=== PATIENT | female | born 1940 | race Caucasian/White ===

== ENCOUNTER 2016-10-12 10:24 | Emergency (ER) | payer OTHER ==
[~2016-10-12] VITALS: Ht 162.6 cm; Wt 64.6 kg
[~2016-10-12 10:24] MED LIST: CALCCAP4 PO; CARV6.252 PO; CHOL200027 PO; CLOP1TAB15 PO; FOLI1TAB7 PO; LORA0.5T12 PO; METH2.5T PO; PANT40TA PO; PRED-301 PO; SIMV20TA5 PO; TRAM-10 PO
[2016-10-12 10:36] VITALS: TEMP 36.5; Ht 162.6 cm; Wt 64.6 kg
[2016-10-12] MEDS ORDERED: SODIUM CHLORIDE 0.9% 1000ML 1,000 ML IV STA (10:36)
--- NOTE | 2016-10-12 10:39 | EMERGENCY ROOM VISIT NOTE ---
History Report prepared by Duncan: Pablo Martinez Under the Supervision of: Dr. Juve Browning M.D. First contact with patient: 10:28 Stated Complaint: SYNCOPE History of Present Illness The patient is a 76 year old female who presents to the Emergency Room with complaints of a resolved episode of syncope that occurred earlier today. The patient was sitting down at [employer]ae[employer] when she lost consciousness. The patient has passed out before but it has been many years. She did eat breakfast this morning. The patient has a history of coronary artery disease for which she has had CABG and stents placed. She follows up with Cardiology in [place]. The patient also has a history of breast cancer. She is currently in remission s/p mastectomy. The patient does not wear oxygen at home. The patient denies abdominal pain. Source of History: patient Onset: earlier today Position: other (global) Quality: other (syncope) Timing: resolved Associated Symptoms: + LOC, No abdominal pain Review of Systems See HPI for pertinent positives & negatives. A total of 10 systems reviewed and were otherwise negative. 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 (10) mitral valve repair (11) OLD MYOCARDIAL INFARCT (12) Paroxysmal atrial fibrillation (13) Placement of stent in coronary artery (14) Rheumatoid arthritis (15) Sciatica (16) TIA (transient ischemic attack) Surgical Problems: (1) H/O oophorectomy (2) H/O shoulder surgery (3) S/P mastectomy Family History Cancer Heart disease Hypertension Social History Smoking Status: Never Smoker Alcohol Use: none Drug Use: none Marital Status: single Housing Status: lives alone Occupation Status: retired Current/Historical Medications Scheduled Carvedilol (Coreg), 6.25 MG PO BID Cholecalciferol (Vitamin D-3), 2,000 INTER.UNIT PO QAM Clopidogrel (Plavix), 75 MG PO DAILY Folic Acid (Folvite), 1 MG PO DAILY Methotrexate (Methotrexate), 4 TAB PO WK Pantoprazole Sodium (Protonix), 40 MG PO DAILY Prednisone (Prednisone), 5 MG PO DAILY Simvastatin (Zocor), 20 MG PO HS Allergies Coded Allergies: Lorazepam (Unverified Adverse Reaction, Severe, DELIRIUM, 10/12/16) Confusion, Disoriented, Hallucination Promethazine (Unverified Adverse Reaction, Severe, DELIRIUM, 10/12/16) Pt confused, hallucinating, disoriented Physical Exam Vital Signs Date Time Temp Pulse Resp B/P Pulse Ox O2 Delivery O2 Flow Rate FiO2 10/12/16 13:48 85 21 137/91 96 10/12/16 13:09 78 10/12/16 12:22 79 20 146/94 96 Room Air 10/12/16 11:02 98 Room Air 10/12/16 10:56 77 153/84 81 124/73 82 128/69 10/12/16 10:36 36.5 86 20 147/90 99 Room Air 10/12/16 10:34 78 Physical Exam GENERAL: Patient is a healthy-appearing well-nourished female HEAD: Normocephalic atraumatic EYES: Ocular movements intact pupils equal and react to light OROPHARYNX mucous membranes are moist no exudates present no erythema or edema present NECK: Supple no nuchal rigidity CHEST: Good equal expansion LUNGS: Clear and equal to auscultation CARDIAC: Normal S1 and S2 ABDOMEN: Soft nontender no guarding BACK: No CVA tenderness EXTREMITIES: No pain upon palpation normal muscle strength in all groups no clubbing cyanosis or edema NEURO: Patient is following commands is answering questions appropriately. Alert and oriented x3 Cranial Nerves 2-12 grossly intact Medical Decision & Procedures ER Provider Diagnostic Interpretation: X-ray results as stated below per my interpretation and radiologist interpretation. Other radiology results as stated below per my review and radiologist interpretation: CHEST ONE VIEW PORTABLE CLINICAL HISTORY: Syncope COMPARISON STUDY: 7016 FINDINGS: There are postsurgical changes of a midline sternotomy and valvular replacement. The cardiac and mediastinal contours remain stable. There is no failure. There is no focal pulmonary consolidation. There are no significant pleural effusions. There is a linear atelectasis/scarring at the left lung base. There are postsurgical changes of a right humeral arthroplasty. Degenerative changes are present within the left shoulder.[ IMPRESSION: No active disease in the chest. Electronically signed by: Yusef Teran M.D. 10/12/2016 10:53 AM Dictated Date/Time: 10/12/2016 10:[address] NON[address]AST CT DOSE: 537.48 mGy.cm HISTORY: Altered mental status. Syncope. TECHNIQUE: Multiaxial CT images of the head were performed without the use of intravenous contrast. Automated exposure control was utilized for this study. Comparison: Head CT 01/26/2015. Findings: The paranasal sinuses and mastoid air cells are clear. The calvarium and skull base are intact. There is no mass, hematoma, midline shift, acute infarct. White matter hypodensity is nonspecific but suggestive of microvascular ischemic change. The ventricles and sulci demonstrate mild age-related involutional changes. Punctate old lacunar infarct seen within the left thalamus. Impression: No significant change compared to the prior study. No acute intracranial abnormality. Electronically signed by: Alex Desouza M.D. 10/12/2016 12:43 PM Dictated Date/Time: 10/12/2016 12:11 PM Laboratory Results 10/12/16 11:30 Red Blood Count 3.70, Mean Corpuscular Volume 91.4, Mean Corpuscular Hemoglobin 29.2, Mean Corpuscular Hemoglobin Concent 32.0, Mean Platelet Volume 9.7, Neutrophils (%) (Auto) 77.1, Lymphocytes (%) (Auto) 13.0, Monocytes (%) (Auto) 7.8, Eosinophils (%) (Auto) 1.3, Basophils (%) (Auto) 0.7, Neutrophils # (Auto) 5.32, Lymphocytes # (Auto) 0.90, Monocytes # (Auto) 0.54, Eosinophils # (Auto) 0.09, Basophils # (Auto) 0.05 10/12/16 11:30 Test 10/12/16 11:06 10/12/16 11:09 10/12/16 11:30 10/12/16 12:27 Influenza Type A (RT-PCR) Neg for Influ A (NEG) Influenza Type B (RT-PCR) Neg for Influ B (NEG) Bedside Glucose 108 mg/dl (70-90) White Blood Count 6.91 K/uL (4.8-10.8) Red Blood Count 3.70 M/uL (4.2-5.4) Hemoglobin 10.8 g/dL (12.0-16.0) Hematocrit 33.8 % (37-47) Mean Corpuscular Volume 91.4 fL (80-100) Mean Corpuscular Hemoglobin 29.2 pg (25-34) Mean Corpuscular Hemoglobin Concent 32.0 g/dl (32-36) Platelet Count 227 K/uL (130-400) Mean Platelet Volume 9.7 fL (7.4-10.4) Neutrophils (%) (Auto) 77.1 % Lymphocytes (%) (Auto) 13.0 % Monocytes (%) (Auto) 7.8 % Eosinophils (%) (Auto) 1.3 % Basophils (%) (Auto) 0.7 % Neutrophils # (Auto) 5.32 K/uL (1.4-6.5) Lymphocytes # (Auto) 0.90 K/uL (1.2-3.4) Monocytes # (Auto) 0.54 K/uL (0.11-0.59) Eosinophils # (Auto) 0.09 K/uL (0-0.5) Basophils # (Auto) 0.05 K/uL (0-0.2) RDW Standard Deviation 55.1 fL (36.4-46.3) RDW Coefficient of Variation 16.5 % (11.5-14.5) Immature Granulocyte % (Auto) 0.1 % Immature Granulocyte # (Auto) 0.01 K/uL (0.00-0.02) Prothrombin Time 10.5 SECONDS (9.0-12.0) Prothromb Time International Ratio 1.0 (0.9-1.1) Anion Gap 11.0 mmol/L (3-11) Est Creatinine Clear Calc Drug Dose 37.6 ml/min Estimated GFR () 56.5 Estimated GFR (Non- 48.7 BUN/Creatinine Ratio 27.5 (10-20) Calcium Level 8.9 mg/dl (8.5-10.1) Total Bilirubin 0.5 mg/dl (0.2-1) Direct Bilirubin 0.1 mg/dl (0-0.2) Aspartate Amino Transf (AST/SGOT) 31 U/L (15-37) Alanine Aminotransferase (ALT/SGPT) 38 U/L (12-78) Alkaline Phosphatase 34 U/L (45-117) Total Creatine Kinase 105 U/L (26-192) Creatine Kinase MB 1.1 ng/ml (0.5-3.6) Creatine Kinase MB Ratio 1.0 (0-3.0) Troponin I < 0.015 ng/ml (0-0.045) Total Protein 6.7 gm/dl (6.4-8.2) Albumin 3.5 gm/dl (3.4-5.0) Thyroid Stimulating Hormone (TSH) 3.210 uIu/ml (0.300-4.500) Urine Color YELLOW Urine Appearance CLEAR (CLEAR) Urine pH 6.5 (4.5-7.5) Urine Specific [place] 1.004 (1.000-1.030) Urine Protein NEG (NEG) Urine Glucose (UA) NEG (NEG) Urine Ketones NEG (NEG) Urine Occult Blood NEG (NEG) Urine Nitrite NEG (NEG) Urine Bilirubin NEG (NEG) Urine Urobilinogen NEG (NEG) Urine Leukocyte Esterase NEG (NEG) Labs reviewed by ED physician. Medications Administered Medications (Trade) Dose Ordered Sig/Tony Route Start Time Stop Time Status Last Admin Dose Admin Sodium Chloride (Nss 1000ml) 1,000 ml @ 999 mls/hr Q1H1M STAT IV 10/12/16 10:36 10/12/16 11:36 DC 10/12/16 11:35 999 MLS/HR ECG Indication: syncope Rate (beats per minute): 79 Rhythm: normal sinus Findings: no acute ischemic change, no ectopy, other (normal ekg) ED Course 1030: Past medical records reviewed. The patient was evaluated in room C10. A complete history and physical examination was performed. 1036: NSS 1000 ml @ 999 mls/hr. 1125: Spoke with the patient's daughter. She states that the patient has passed out multiple times, which is usually due to dehydration. She also states that the patient is at baseline. She had me check the patient's ears, which were clear. 1330: Reassessed the patient. Discussed the findings with her. She verbalized understanding and agreement of the treatment plan. The patient is ready for discharge. Medical Decision Etiologies such as vasovagal event, infection, hypoglycemia, electrolyte abnormalities, cardiac sources, intracerebral event, toxicologic, neurologic, as well as others were entertained. This is a 76-year-old female who presents emergency department after passing out. The patient now had a warning that she was going to pass out. Patient and her daughter both states that she has had syncopal episodes in the past however the patient is also had cardiac bypass surgery. For this reason an IV was established EKG was obtained, the patient given normal saline bolus. She is slightly dehydrated on her laboratory work. I do believe that the patient as well as to be discharged home however stressed the need for follow-up with cardiology. Patient was in agreement with the treatment plan. Impression Primary Impression: Dehydration Additional Impression: Syncope Scribe Attestation The scribe's documentation has been prepared under my direction and personally reviewed by me in its entirety. I confirm that the note above accurately reflects all work, treatment, procedures, and medical decision making performed by me. Departure Information Dispostion Home / Self-Care Referrals Damion Carballo M.D. (PCP) Forms HOME CARE DOCUMENTATION FORM, IMPORTANT VISIT INFORMATION, School Instructions, Work Instructions Patient Instructions Dehydration, My [facility], Syncope Causes, Syncope Dx Additional Instructions Follow up with Dr Nieves's office You have been examined and treated today on an emergency basis only. This is not a substitute for, or an effort to provide, complete comprehensive medical care. It is impossible to recognize and treat all injuries or illnesses in a single emergency department visit. It is therefore important that you follow up closely with Dr Carballo. Call as soon as possible for an appointment. Thank you for your time and consideration. I look forward to speaking with you again soon. Please don't hesitate to call us if you have any questions. Problem Qualifiers Additional Impression: Syncope Syncope type: unspecified Qualified Codes: R55 - Syncope and collapse
--- NOTE | 2016-10-12 10:54 | DIAGNOSTIC IMAGING REPORT ---
CHEST ONE VIEW PORTABLE CLINICAL HISTORY: Syncope COMPARISON STUDY: 7016 FINDINGS: There are postsurgical changes of a midline sternotomy and valvular replacement. The cardiac and mediastinal contours remain stable. There is no failure. There is no focal pulmonary consolidation. There are no significant pleural effusions. There is a linear atelectasis/scarring at the left lung base. There are postsurgical changes of a right humeral arthroplasty. Degenerative changes are present within the left shoulder.[ IMPRESSION: No active disease in the chest. Electronically signed by: Yusef Teran M.D. 10/12/2016 10:53 AM Dictated Date/Time: 10/12/2016 10:52 AM
[2016-10-12 11:02] VITALS: O2SAT 98
[2016-10-12 11:45] LABS: BASO % 0.7 %; BASO ABS # 0.05 K/uL (0-0.2); COMPLETE YES; EOS % 1.3 %; HEMATOCRIT 33.8 % (37-47); IG% 0.1 %; MEAN CELL VOLUME 91.4 fL (80-100); MEAN CORPUSCULAR HEMOGLOBIN 29.2 pg (25-34); MEAN PLATELET VOLUME 9.7 fL (7.4-10.4); MONO % 7.8 %; NEUT % 77.1 %; PLATELET COUNT 227 K/uL (130-400); WHITE BLOOD COUNT 6.91 K/uL (4.8-10.8)
[2016-10-12 12:00] LABS: PROTHROMBIN TIME (PATIENT) 10.5 SECONDS (9.0-12.0)
[2016-10-12 12:03] LABS: ALT/SGPT 38 U/L (12-78); BLOOD UREA NITROGEN 30 mg/dl (7-18); BUN/CREATININE RATIO 27.5 (10-20); CALCIUM 8.9 mg/dl (8.5-10.1); CARBON DIOXIDE 22 mmol/L (21-32); CHLORIDE 108 mmol/L (98-107); GLUCOSE 98 mg/dl (70-99); POTASSIUM 4.3 mmol/L (3.5-5.1); SODIUM 141 mmol/L (136-145)
[2016-10-12 12:13] LABS: AST/SGOT 31 U/L (15-37)
[2016-10-12 12:14] LABS: ALKALINE PHOSPHATASE 34 U/L (45-117)
[2016-10-12 12:44] LABS: URINE APPEARANCE CLEAR (CLEAR); URINE BILIRUBIN NEG (NEG); URINE COLOR YELLOW; URINE NITRITE NEG (NEG); URINE PH 6.5 (4.5-7.5); URINE SPECIFIC GRAVITY 1.004 (1.000-1.030); UROBILINOGEN NEG (NEG)
--- NOTE | 2016-10-12 12:45 | DIAGNOSTIC IMAGING REPORT ---
HEAD CT NONCONTRAST CT DOSE: 537.48 mGy.cm HISTORY: Altered mental status. Syncope. TECHNIQUE: Multiaxial CT images of the head were performed without the use of intravenous contrast. Automated exposure control was utilized for this study. Comparison: Head CT 01/26/2015. Findings: The paranasal sinuses and mastoid air cells are clear. The calvarium and skull base are intact. There is no mass, hematoma, midline shift, acute infarct. White matter hypodensity is nonspecific but suggestive of microvascular ischemic change. The ventricles and sulci demonstrate mild age-related involutional changes. Punctate old lacunar infarct seen within the left thalamus. Impression: No significant change compared to the prior study. No acute intracranial abnormality. Electronically signed by: Alex Desouza M.D. 10/12/2016 12:43 PM Dictated Date/Time: 10/12/2016 12:11 PM
[2016-10-12 12:50] LABS: MANUAL MICROSCOPIC REQUIRED? NO; REVIEW REQ? NO
[2016-10-12 13:48] VITALS: BP 137/91; PULSE 85; O2SAT 96
[2016-10-12 13:56] LABS: INFLUENZA A PCR Neg for Influ A (NEG); INFLUENZA B PCR Neg for Influ B (NEG)
== END 2016-10-12 13:50 | disposition home or self-care (01) ==
LOC: EDBD 10:24 → C.EDC 10:26
DX: E86.0 Dehydration (principal); R55 Syncope and collapse; I25.10 Atherosclerotic heart disease of native coronary artery without angina pectoris; Z95.1 Presence of aortocoronary bypass graft; Z95.5 Presence of coronary angioplasty implant and graft; Z85.3 Personal history of malignant neoplasm of breast; Z79.01 Long term (current) use of anticoagulants; I10 Essential (primary) hypertension; E78.00 Pure hypercholesterolemia, unspecified; I25.2 Old myocardial infarction; M06.9 Rheumatoid arthritis, unspecified; Z86.73 Personal history of transient ischemic attack (TIA), and cerebral infarction without residual deficits; Z90.13 Acquired absence of bilateral breasts and nipples; Z82.49 Family history of ischemic heart disease and other diseases of the circulatory system; Z79.899 Other long term (current) drug therapy

== ENCOUNTER 2017-04-07 14:13 | Emergency (ER) | payer OTHER ==
[~2017-04-07] VITALS: Ht 152.4 cm; Wt 62.4 kg
[~2017-04-07 14:13] MED LIST changes: -CALCCAP4 PO; -LORA0.5T12 PO; -TRAM-10 PO
[2017-04-07 14:25] VITALS: TEMP 36.7; Ht 152.4 cm; Wt 62.4 kg
[2017-04-07 14:30] VITALS: O2SAT 95
--- NOTE | 2017-04-07 14:34 | EMERGENCY ROOM VISIT NOTE ---
History Report prepared by Duncan: Joey Lipscomb Under the Supervision of: Dr. July Harding D.O. 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 The patient reports shopping in a greenhouse today when this episode occurred. It lasted about 1 minute. Associated symptoms include prior dizziness. Per the patient's daughter , the check out cashier at the greenhouse noticed signs of the patient passing out. These signs include the patient becoming pale and starting to lose her balance. The check out cashier was able to catch her. The patient did not hit her head. The patient notes that she has been experiencing worsening left shoulder pain this past week. States she has had left shoulder pain intermittently for years thought to be related to arthritis and was just recently exacerbated. She believes that this pain was caused by a minor "whiplash" after sneezing. The patient has a history of syncopal episodes secondary to dehydration. She admits to not drinking enough water today. States she did eat breakfast this morning. The patient denies chest pain, shortness of breath, headaches, nausea, vomiting, and diarrhea. The patient has an extensive cardiac history that includes an open heart valve repair, a "failed" bypass, and stent placement. She had a clear heart catheterization last year. The patient denies experiencing any symptoms at this time. Daughter present at bedside talk to the check out cashier about the event who again confirms that there was no trauma, they did not notice any seizure-like activity in the patient, and that she was only unconscious for less than a minute and when came to was aware of her surroundings and oriented. 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 A total of 10 systems reviewed and were otherwise negative. 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, detention, current use (10) mitral valve repair (11) OLD MYOCARDIAL INFARCT (12) Paroxysmal atrial fibrillation (13) Placement of stent in coronary artery (14) Rheumatoid arthritis (15) Sciatica (16) TIA (transient ischemic attack) Surgical Problems: (1) H/O oophorectomy (2) H/O shoulder surgery (3) S/P mastectomy Family History Cancer Heart disease Hypertension Social History Smoking Status: Never Smoker Alcohol Use: none Drug Use: none Marital Status: single Housing Status: lives alone Occupation Status: retired Current/Historical Medications Scheduled Aspirin (Aspirin Ec), 81 MG PO DAILY Carvedilol (Coreg), 3.125 MG PO BID Cephalexin (Keflex), 1 CAP PO BID Cholecalciferol (Vitamin D-3), 2,000 INTER.UNIT PO QAM Clopidogrel (Plavix), 75 MG PO DAILY Folic Acid (Folvite), 1 MG PO DAILY Methotrexate (Methotrexate), 4 TAB PO WK Pantoprazole Sodium (Protonix), 40 MG PO DAILY Simvastatin (Zocor), 20 MG PO HS Allergies Coded Allergies: Lorazepam (Unverified Adverse Reaction, Severe, DELIRIUM, 10/12/16) Confusion, Disoriented, Hallucination Promethazine (Unverified Adverse Reaction, Severe, DELIRIUM, 10/12/16) Pt confused, hallucinating, disoriented Physical Exam Vital Signs Date Time Temp Pulse Resp B/P (MAP) Pulse Ox O2 Delivery O2 Flow Rate FiO2 04/07/17 19:10 72 16 137/72 96 Room Air 04/07/17 17:12 84 16 148/82 96 Room Air 04/07/17 15:05 79 18 123/71 96 Room Air 78 117/76 80 114/69 04/07/17 14:30 95 Room Air 04/07/17 14:25 36.7 78 20 134/76 95 Room Air 04/07/17 14:24 76 Physical Exam GENERAL: alert, well appearing, well nourished, no distress, non-toxic EYE EXAM: normal conjunctiva, PERRL and EOM's grossly intact OROPHARYNX: no exudate, no erythema, lips, buccal mucosa, and tongue normal and mucous membranes are moist NECK: supple, no nuchal rigidity, no adenopathy, non-tender LUNGS: Clear to auscultation. Normal chest wall mechanics HEART: no murmurs, S1 normal and S2 normal ABDOMEN: abdomen soft, non-tender, normo-active bowel sounds, no masses, no rebound or guarding. BACK: Back is symmetrical on inspection and there is no deformity, no midline tenderness, no CVA tenderness. SKIN: Small abrasion to left axilla, no rashes. UPPER EXTREMITIES: No reproducible pain of left shoulder. upper extremities are grossly normal. LOWER EXTREMITIES: No pitting edema. NEURO EXAM: No facial droop. Normal sensorium, cranial nerves II-XII intact, normal speech, no weakness of arms, no weakness of legs. No drift. Finger to nose intact. Gross sensation intact. Medical Decision & Procedures ER Provider Diagnostic Interpretation: Radiology results have been interpreted by the radiologist and reviewed by me. HEAD WITHOUT CONTRAST (CT) CT DOSE: 614.27 mGy.cm HISTORY: Mental status change syncope TECHNIQUE: Multiaxial CT images of the head were performed without the use of intravenous contrast. A dose lowering technique was utilized adhering to the principles of ALARA. Comparison: 10/12/2016 Findings: The paranasal sinuses and mastoid air cells are clear. The calvarium and skull base are intact. The ventricles and sulci are within normal limits. There is no mass, hematoma, midline shift, or acute infarct. Chronic small vessel change of aging. Mild frontal atrophy. Impression: Age-related change. No acute intracranial abnormality . Chronic small vessel change. The above report was generated using voice recognition software. It may contain grammatical, syntax or spelling errors. Electronically signed by: Oscar Kilgore M.D. 04/07/2017 3:29 PM Dictated Date/Time: 04/07/2017 3:26 PM CHEST ONE VIEW PORTABLE CLINICAL HISTORY: syncope mental status change COMPARISON STUDY: 10/12/2016 FINDINGS: Prior median sternotomy and valve replacement. Diaphragms are smooth. Lungs are clear. Prior right shoulder arthroplasty. IMPRESSION: Chronic and postoperative change. No acute process. The above report was generated using voice recognition software. It may contain grammatical, syntax or spelling errors. Electronically signed by: Oscar Kilgore M.D. 04/07/2017 3:10 PM Dictated Date/Time: 04/07/2017 3:09 PM Laboratory Results 04/07/17 15:37 Red Blood Count 3.90, Mean Corpuscular Volume 86.7, Mean Corpuscular Hemoglobin 26.7, Mean Corpuscular Hemoglobin Concent 30.8, Mean Platelet Volume 9.0, Neutrophils (%) (Auto) 79.6, Lymphocytes (%) (Auto) 11.2, Monocytes (%) (Auto) 8.0, Eosinophils (%) (Auto) 0.3, Basophils (%) (Auto) 0.6, Neutrophils # (Auto) 7.18, Lymphocytes # (Auto) 1.01, Monocytes # (Auto) 0.72, Eosinophils # (Auto) 0.03, Basophils # (Auto) 0.05 04/07/17 18:42 Test 04/07/17 15:37 04/07/17 16:38 04/07/17 18:42 White Blood Count 9.02 K/uL (4.8-10.8) Red Blood Count 3.90 M/uL (4.2-5.4) Hemoglobin 10.4 g/dL (12.0-16.0) Hematocrit 33.8 % (37-47) Mean Corpuscular Volume 86.7 fL (80-100) Mean Corpuscular Hemoglobin 26.7 pg (25-34) Mean Corpuscular Hemoglobin Concent 30.8 g/dl (32-36) Platelet Count 288 K/uL (130-400) Mean Platelet Volume 9.0 fL (7.4-10.4) Neutrophils (%) (Auto) 79.6 % Lymphocytes (%) (Auto) 11.2 % Monocytes (%) (Auto) 8.0 % Eosinophils (%) (Auto) 0.3 % Basophils (%) (Auto) 0.6 % Neutrophils # (Auto) 7.18 K/uL (1.4-6.5) Lymphocytes # (Auto) 1.01 K/uL (1.2-3.4) Monocytes # (Auto) 0.72 K/uL (0.11-0.59) Eosinophils # (Auto) 0.03 K/uL (0-0.5) Basophils # (Auto) 0.05 K/uL (0-0.2) RDW Standard Deviation 55.1 fL (36.4-46.3) RDW Coefficient of Variation 17.6 % (11.5-14.5) Immature Granulocyte % (Auto) 0.3 % Immature Granulocyte # (Auto) 0.03 K/uL (0.00-0.02) Prothrombin Time 10.2 SECONDS (9.0-12.0) Prothromb Time International Ratio 1.0 (0.9-1.1) Total Bilirubin 0.5 mg/dl (0.2-1) Aspartate Amino Transf (AST/SGOT) 21 U/L (15-37) Alanine Aminotransferase (ALT/SGPT) 21 U/L (12-78) Alkaline Phosphatase 52 U/L (45-117) Pro-B-Type Natriuretic Peptide 1050 pg/ml (0-1800) Total Protein 7.4 gm/dl (6.4-8.2) Albumin 3.4 gm/dl (3.4-5.0) Globulin 4.0 gm/dl (2.5-4.0) Albumin/Globulin Ratio 0.9 (0.9-2) Urine Color YELLOW Urine Appearance CLEAR (CLEAR) Urine pH 6.5 (4.5-7.5) Urine Specific [place] 1.012 (1.000-1.030) Urine Protein 1+ (NEG) Urine Glucose (UA) TRACE (NEG) Urine Ketones NEG (NEG) Urine Occult Blood 1+ (NEG) Urine Nitrite NEG (NEG) Urine Bilirubin NEG (NEG) Urine Urobilinogen NEG (NEG) Urine Leukocyte Esterase TRACE (NEG) Urine WBC (Auto) 5-10 /hpf (0-5) Urine RBC (Auto) 0-4 /hpf (0-4) Urine Hyaline Casts (Auto) 1-5 /lpf (0-5) Urine Epithelial Cells (Auto) >30 /lpf (0-5) Urine Bacteria (Auto) 3+ (NEG) Urine Renal Epithelial Cells 5-10 /lpf (0-5) Anion Gap 6.0 mmol/L (3-11) Est Creatinine Clear Calc Drug Dose 24.3 ml/min Estimated GFR () 35.7 Estimated GFR (Non- 30.8 BUN/Creatinine Ratio 17.3 (10-20) Calcium Level 8.6 mg/dl (8.5-10.1) Troponin I < 0.015 ng/ml (0-0.045) Laboratory results per my review. Medications Administered Medications (Trade) Dose Ordered Sig/Tony Route Start Time Stop Time Status Last Admin Dose Admin Sodium Chloride 1,000 ml @ 999 mls/hr Q1H1M STAT IV 04/07/17 14:46 04/07/17 15:46 DC 04/07/17 14:46 999 MLS/HR Sodium Chloride 1,000 ml @ 999 mls/hr Q1H1M STAT IV 04/07/17 17:24 04/07/17 18:24 DC 04/07/17 17:24 999 MLS/HR Cephalexin Monohydrate (Keflex Cap) 500 mg NOW ONCE PO 04/07/17 19:30 04/07/17 19:31 DC 04/07/17 19:30 500 MG ECG Indication: syncope Rate (beats per minute): 78 Rhythm: sinus rhythm Findings: 1st degree AV block, no acute ischemic change, left axis deviation, other (Normal Intervals) ED Course 1421: The patient was evaluated in room A12. A complete history and physical exam was performed. \\ 1446: Ordered Sodium Chloride 1,000 ml @ 999 mls/hr IV. 1505: Patient's daughter spoke with Johana espinosa who states that the patient was out for approximately 30 seconds. No seizure activity was observed. 1544: Upon reevaluation, the patient is feeling well. 1610: Cath report from May 13, 2016 at [place] shows patent graphs and stents RCA with 30-40% stenosis mid and distal. 1724: Ordered Sodium Chloride 1,000 ml @ 999 mls/hr IV. 1736: Upon reevaluation, the patient is feeling fine. We will recheck troponin in an hour. 1930: Ordered Keflex Capsule 500 mg PO. 193: The patient was able to ambulate to bathroom with steady gate. No recurrent episodes. I discussed the findings and the treatment plan with the patient. She verbalizes agreement and understanding. She was discharged home. Medical Decision Differential diagnosis: Etiologies such as vasovagal event, infection, hypoglycemia, electrolyte abnormalities, cardiac sources, intracerebral event, toxicologic, neurologic, as well as others were entertained. Patient monitored her for several hours as a precaution given age and comorbidities. Reviewed cath results from less than 1 year ago which showed patent grafts and stents. Given patient's poor oral intake, and being in an extreme setting of heat, more likely related to these 2 factors. Doubt acute neurologic or cardiac event. Patient with normal nonfocal neuro exam at bedside and negative CAT scan of the head. Labs and EKG reassuring, troponins negative 2. Doubt acute vascular etiology. Patient with mild contusion noted to the left upper extremity likely from check out cashier trying to prevent her from falling, no other evidence of acute traumatic injury. Discussed with patient creatinine as well as likely mild urinary tract infection. Discussed close follow up with family doctor, adequate hydration, use of antibiotics. Doubt bacteremia/sepsis. Patient with no symptoms to suggest a sending UTI or pyelonephritis. Urine sent for culture as a precaution. Cranium was improved following IV hydration, discussed recheck of this with family doctor. Patient with mild anemia, discussed with family. No recent black or bloody stools, doubt occult GI bleed, or blood loss secondary to trauma. Patient and daughter aware of all results, aware for need for close follow-up, we discussed symptoms to watch and return for, they verbalized understanding were agreeable with plan. Medication Reconcilliation Current Medication List: was personally reviewed by me Blood Pressure Screening Patient's blood pressure: Elevated blood pressure Blood pressure disposition: Elevated BP felt to be situational Impression Primary Impression: Syncope Additional Impressions: Contusion Acute renal insufficiency UTI (urinary tract infection) Scribe Attestation The scribe's documentation has been prepared under my direction and personally reviewed by me in its entirety. I confirm that the note above accurately reflects all work, treatment, procedures, and medical decision making performed by me. Departure Information Dispostion Home / Self-Care Prescriptions Cephalexin (KEFLEX) 500 Mg Cap 1 CAP PO BID for 7 Days, #14 CAP Prov: July Harding, DO 04/07/17 Referrals Damion Carballo M.D. (PCP) Forms HOME CARE DOCUMENTATION FORM, IMPORTANT VISIT INFORMATION Additional Instructions Please follow up with your family doctor the beginning of next week. Please make sure you're drinking more water. Please take the antibiotic as prescribed. Please have your family doctor recheck your kidney number as it was slightly abnormal tonight at 1.6. Please continue your other normal medications. If you develop any recurrent episodes of dizziness or lightheadedness, develop chest pain, trouble breathing, headaches, vision changes, numbness or tingling, vomiting, abdominal pain, or you have any other new or concerning symptoms, please return the emergency room. Problem Qualifiers Primary Impression: Syncope Syncope type: unspecified Qualified Codes: R55 - Syncope and collapse Additional Impressions: Contusion Encounter type: initial encounter Contusion area: upper arm Laterality: left Qualified Codes: S40.022A - Contusion of left upper arm, initial encounter UTI (urinary tract infection) Urinary tract infection type: acute cystitis Hematuria presence: with hematuria Qualified Codes: N30.01 - Acute cystitis with hematuria
[2017-04-07] MEDS ORDERED: ASPI81TA28 PO (14:45)
[2017-04-07] MEDS ORDERED: SODIUM CHLORIDE 0.9% 1000ML 1,000 ML IV STA ×2 (14:46→17:24)
--- NOTE | 2017-04-07 15:11 | DIAGNOSTIC IMAGING REPORT ---
CHEST ONE VIEW PORTABLE CLINICAL HISTORY: syncope mental status change COMPARISON STUDY: 10/12/2016 FINDINGS: Prior median sternotomy and valve replacement. Diaphragms are smooth. Lungs are clear. Prior right shoulder arthroplasty. IMPRESSION: Chronic and postoperative change. No acute process. The above report was generated using voice recognition software. It may contain grammatical, syntax or spelling errors. Electronically signed by: Oscar Kilgore M.D. 04/07/2017 3:10 PM Dictated Date/Time: 04/07/2017 3:09 PM
--- NOTE | 2017-04-07 15:31 | DIAGNOSTIC IMAGING REPORT ---
HEAD WITHOUT CONTRAST (CT) CT DOSE: 614.27 mGy.cm HISTORY: Mental status change syncope TECHNIQUE: Multiaxial CT images of the head were performed without the use of intravenous contrast. A dose lowering technique was utilized adhering to the principles of ALARA. Comparison: 10/12/2016 Findings: The paranasal sinuses and mastoid air cells are clear. The calvarium and skull base are intact. The ventricles and sulci are within normal limits. There is no mass, hematoma, midline shift, or acute infarct. Chronic small vessel change of aging. Mild frontal atrophy. Impression: Age-related change. No acute intracranial abnormality . Chronic small vessel change. The above report was generated using voice recognition software. It may contain grammatical, syntax or spelling errors. Electronically signed by: Oscar Kilgore M.D. 04/07/2017 3:29 PM Dictated Date/Time: 04/07/2017 3:26 PM
[2017-04-07 15:50] LABS: HEMATOCRIT 33.8 % (37-47); MEAN CELL VOLUME 86.7 fL (80-100); MEAN CORPUSCULAR HEMOGLOBIN 26.7 pg (25-34); MEAN CORPUSCULAR HGB CONC 30.8 g/dl (32-36); PLATELET COUNT 288 K/uL (130-400); WHITE BLOOD COUNT 9.02 K/uL (4.8-10.8)
[2017-04-07 15:58] LABS: PROTHROMBIN TIME (PATIENT) 10.2 SECONDS (9.0-12.0)
[2017-04-07 16:13] LABS: ALT/SGPT 21 U/L (12-78); AST/SGOT 21 U/L (15-37); BLOOD UREA NITROGEN 30 mg/dl (7-18); BUN/CREATININE RATIO 16.7 (10-20); CALCIUM 9.2 mg/dl (8.5-10.1); CARBON DIOXIDE 21 mmol/L (21-32); CHLORIDE 113 mmol/L (98-107); GLUCOSE 101 mg/dl (70-99); POTASSIUM 4.1 mmol/L (3.5-5.1); SODIUM 140 mmol/L (136-145)
[2017-04-07 16:18] LABS: ALB/GLOB RATIO 0.9 (0.9-2); ALKALINE PHOSPHATASE 52 U/L (45-117)
[2017-04-07 16:40] LABS: BASO % 0.6 %; BASO ABS # 0.05 K/uL (0-0.2); COMPLETE YES; EOS % 0.3 %; IG% 0.3 %; LYMPH % 11.2 %; LYMPH ABS # 1.01 K/uL (1.2-3.4); NEUT % 79.6 %
[2017-04-07 18:55] LABS: URINE APPEARANCE CLEAR (CLEAR); URINE BILIRUBIN NEG (NEG); URINE COLOR YELLOW; URINE EPITHELIAL CELL AUTO >30 /lpf (0-5); URINE NITRITE NEG (NEG); URINE PH 6.5 (4.5-7.5); URINE SPECIFIC GRAVITY 1.012 (1.000-1.030); UROBILINOGEN NEG (NEG); ZZUR CULT IF INDIC CLEAN CATCH YES
[2017-04-07 19:01] LABS: MANUAL MICROSCOPIC REQUIRED? NO; REVIEW REQ? YES
[2017-04-07 19:10] VITALS: BP 137/72; PULSE 72; O2SAT 96
[2017-04-07 19:24] LABS: BLOOD UREA NITROGEN 28 mg/dl (7-18); BUN/CREATININE RATIO 17.3 (10-20); CALCIUM 8.6 mg/dl (8.5-10.1); CARBON DIOXIDE 21 mmol/L (21-32); CHLORIDE 114 mmol/L (98-107); GLUCOSE 121 mg/dl (70-99); POTASSIUM 4.2 mmol/L (3.5-5.1); SODIUM 141 mmol/L (136-145)
[2017-04-07] MEDS ORDERED: CEPHALEXIN MONOHYDRATE 250 MG CAP PO ONE (19:30)
[2017-04-07] MEDS ORDERED: CEPH-571 PO (19:41)
[2017-04-10 14:34] LABS: HYPERSEGMENTED POLYS 1+
== END 2017-04-07 19:56 | disposition home or self-care (01) ==
LOC: EDBD 14:13 → C.EDA 14:14
DX: R55 Syncope and collapse (principal); T14.8 Other injury of unspecified body region; X58.XXXA Exposure to other specified factors, initial encounter; N28.9 Disorder of kidney and ureter, unspecified; N39.0 Urinary tract infection, site not specified; D64.9 Anemia, unspecified; I44.0 Atrioventricular block, first degree; E78.00 Pure hypercholesterolemia, unspecified; I48.91 Unspecified atrial fibrillation; I25.2 Old myocardial infarction; I10 Essential (primary) hypertension; I25.10 Atherosclerotic heart disease of native coronary artery without angina pectoris; I34.1 Nonrheumatic mitral (valve) prolapse; M06.9 Rheumatoid arthritis, unspecified; Z85.3 Personal history of malignant neoplasm of breast; Z90.10 Acquired absence of unspecified breast and nipple; Z86.73 Personal history of transient ischemic attack (TIA), and cerebral infarction without residual deficits; Z98.61 Coronary angioplasty status; Z98.890 Other specified postprocedural states; Z79.01 Long term (current) use of anticoagulants; Z79.82 Long term (current) use of aspirin; Z79.899 Other long term (current) drug therapy; Z88.8 Allergy status to other drugs, medicaments and biological substances; Z80.9 Family history of malignant neoplasm, unspecified; Z82.49 Family history of ischemic heart disease and other diseases of the circulatory system

== ENCOUNTER → 2017-06-01 | Outpatient (CLI) | payer OTHER ==
[~2017-06-01] MED LIST changes: +ASPI81TA28 PO; -PRED-301 PO
--- NOTE | 2017-06-01 16:20 | MAMMOGRAPHY REPORT ---
BILATERAL DIGITAL SCREENING MAMMOGRAM TOMOSYNTHESIS WITH CAD: 06/01/2017 CLINICAL HISTORY: Asymptomatic. Personal history of breast cancer. TECHNIQUE: Breast tomosynthesis in addition to standard 2D mammography was performed. Current study was also evaluated with a Computer Aided Detection (CAD) system. COMPARISON: Comparison is made to exams dated: 12/31/2015 mammogram, 11/07/2014 mammogram, 07/31/2013 mammogram, 01/24/2013 mammogram, 07/26/2012 ultrasound, and 07/26/2012 mammogram - [facility]. BREAST COMPOSITION: There are scattered areas of fibroglandular density in both breasts. FINDINGS: No suspicious masses, calcifications, or areas of architectural distortion are noted in ei ther breast. There has been no significant interval change compared to prior exams. The patient is s tatus post right mastectomy with implant reconstruction. The implant is not well visualized on the i mages. There are stable nodular densities within the right upper outer quadrant consistent with extr avasated silicone from previous implant rupture. IMPRESSION: ACR BI-RADS CATEGORY 2: BENIGN There is no mammographic evidence of malignancy. A 1 year screening mammogram is recommended. The pa tient will receive written notification of the results. Approximately 10% of breast cancers are not detected with mammography. A negative mammographic report should not delay biopsy if a clinically suggestive mass is present. Adeline Virk M.D. /:06/01/2017 14:02:30 Specimen Collector: Joleen Cota, [facility] letter sent: Normal 1/2 BI-RADS Code: ACR BI-RADS Category 2: Benign
== END | disposition home or self-care (01) ==
LOC: C.MAMM 12:33
PROVIDERS: ATTEND Family Medicine
DX: Z12.31 Encounter for screening mammogram for malignant neoplasm of breast (principal); Z85.3 Personal history of malignant neoplasm of breast; Z98.82 Breast implant status; Z90.11 Acquired absence of right breast and nipple

== ENCOUNTER 2019-02-19 17:44 | Inpatient (IN) ==
--- OUTSIDE RECORDS SUMMARY | 2019-02-19 17:47 | External Medical Summary | Continuity of Care Document ---
:1940 Author Name Curtis Morin Address Unavailable Unavailable , Care Team Providers Name Role Phone Unavailable Unavailable Unavailable Temo Morin Unavailable [email or web address] II, C Unavailable Unavailable Unavailable Unavailable Unavailable Problems Osteoarthritis Of The Ankle/Foot (Multiple Joints) (715.97) Closed Compression Fracture Of Thoracic Vertebral Body At T7-T12 Level With Spinal Cord Injury (806.25) Cough (786.2) (R05) Esophagitis (530.10) (K20.9) Osteoporosis (733.00) (M81.0) Ankle joint pain (719.47) (M25.579) Postmenopausal atrophic vaginitis (627.3) (N95.2) Tenosynovitis of hand or wrist (727.05) (M65.88) High risk medication use (V58.69) (Z79.899) Rheumatoid arthritis (714.0) (M06.9) Incontinence (788.30) (R32) Dysuria (788.1) (R30.0) Sprain of ribs (848.3) (S23.41XA) Hyperlipidemia (272.4) (E78.5) Piriformis syndrome (355.0) (G57.00) Compression fracture of lumbar vertebra (805.4) (S32.000A) Disc degeneration, lumbar (722.52) (M51.36) Mitral and aortic valve 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 Patience Plascencia Start: 27-Apr-2011 Quantity: 180 Refills: 1 Pantoprazole Sodium 40 MG Oral Tablet De layed Release; TAKE ONE TABLET BY MOUTH EVERY DAY Patience Plascencia Start: 27-Apr-2011 Quantity: 90 Refills: 3 predniSONE 1 MG Oral Tablet; TAKE FOUR TABLETS BY MOUTH EVER Y DAY Patience Plascencia Start: 27-Apr-2011 Quantity: 120 Refills: 0 Plavix 75 MG Oral Tablet; TAKE 1 TABLET DAILY. Patience Plascencia Start: 06-Oct-2014 Refills: 0 Coreg 6.25 MG Oral Tablet; TAKE 1 TABLET TWICE DAILY WITH ME ALS. Patience Refills: 0 Zocor 80 MG Oral Tablet; TAKE 1 TABLET DAILY. Patience Refills: 0 Calcium + D 600-200 MG-UNIT TABS; TAKE 1 TABLET TWICE DAILY. Patience Start: 27-Apr-2011 Refills: 0 Vitamin D3 2000 UNIT Oral Tablet; TAKE 1 TABLET DAILY. Ghulam Start: 27-Apr-2011 Refills: 0 predniSONE 5 MG Oral Tablet; 4 tablets p o daily; call Dr. Plascencia's office next week for instructions on taper Patience Plascencia Start: 06-Oct-2014 Quantity: 120 Refills: 1 Zoledronic Acid 5 MG/100ML Intravenous S olution; INFUSE 5MG INTRAVENOUSLY OVER 15 MINUTES DIRECTED. Patience Plascencia Start: 13-Dec-2013 Quantity: 1 100 ML Bottle Refills: 0 Folic Acid 1 MG Oral Tablet; TAKE 1 TABLET DAILY. Patience Plascencia Start: 29-Oct-2013 Quantity: 90 Refills: 1 Methotrexate 2.5 MG Oral Tablet; TAKE 3 TABLETS WEEKLY. Patience Plascencia Start: 29-Oct-2013 Quantity: 48 Refills: 1 Procedures History of Bronchoscopy (Diagnostic) Sta tus: Completed History of Tonsillectomy Status: Complet ed History of Cath Stent Placement Status: Completed History of Shoulder Arthroplasty Total Shoulder Replacement Status: Completed History of Ovarian Surgery Status: Compl eted History of Breast Surgery Mastectomy Sta tus: Completed History of Treatment Of Elbow Fracture S tatus: Completed Immunizations Immunizations not documented Family History Father Family history of Congestive Heart Failure Status: Active Mother Family history of Heart Disease (V17.49) Status: Active Family history of Alzheimer Disease Status: Active Sister Family history of Hypertension (V17.49) Status: Active Family history of Hypertension (V17.49) Status: Active Brother Family history of Coronary Artery Disease (V17.49) Status: A ctive Social History - Smoking Status Never smoker Plan of Treatment Planned Observations Planned Goals not documented Results No Known Results Results not documented
[2019-02-19] MEDS ORDERED: ONDANSETRON INJ 2 MG/ML 2 ML VIAL IV STA (18:22)
[2019-02-19] MEDS: SODIUM CHLORIDE 0.9% 1000ML 1,000 ML IV SCH (19:56)
[2019-02-19 20:07] LABS: Alanine Aminotransferase 58 U/L (12-78); Albumin Level 2.9 gm/dl (3.4-5.0); Aspartate Aminotransferase 87 U/L (15-37); BUN Creatinine Ratio 28.5 (10-20); Blood Urea Nitrogen 29 mg/dl (7-18); Calcium 8.5 mg/dl (8.5-10.1); Carbon Dioxide 22 mmol/L (21-32); Chloride 102 mmol/L (98-107); Est GFR (African American) 59.9; Est GFR (Non-African American) 51.7; Glucose 90 mg/dl (70-99); Magnesium 2.2 mg/dl (1.8-2.4); Potassium 4.2 mmol/L (3.5-5.1); Sodium 133 mmol/L (136-145)
[2019-02-19 20:18] LABS: Albumin Globulin Ratio 0.7 (0.9-2); Alkaline Phosphatase 88 U/L (45-117); Bilirubin,Total 0.8 mg/dl (0.2-1); Globulin 4.2 gm/dl (2.5-4.0); NT Pro B Type Natriuretic Pept 4380 pg/ml (0-1800); Total Protein 7.1 gm/dl (6.4-8.2); Troponin I < 0.015 ng/ml (0-0.045)
--- NOTE | 2019-02-19 20:40 | XRay Report ---
PA CHEST RADIOGRAPH AND UPRIGHT AND SUPINE AP RADIOGRAPHS OF THE ABDOMEN CLINICAL HISTORY: Nausea, vomiting and diarrhea COMPARISON STUDY: Chest radiograph April 07, 2017. FINDINGS: Prosthetic cardiac valve, median sternotomy wires and right shoulder arthroplasty are inci dentally noted. There is a trace left pleural effusion. There is no evidence for pulmonary edema. No consolidation is identified. Mild cardiomegaly is noted. There is no evidence for free air. There may be a hiatal hernia. Bowel gas pattern is within normal limits. There is extensive vascular calcifica tion. IMPRESSION: 1. No free air or evidence of bowel obstruction. 2. Suspected moderate-sized hiatal hernia. 3. Trace left pleural effusion. Electronically signed by: Cody Estrada M.D. 02/19/2019 8:38 PM
[2019-02-19 20:53] LABS: Hematocrit (blood only) 40.9 % (37-47); Hemoglobin 13.5 g/dL (12.0-16.0); Mean Corpuscular Volume 87.4 fL (80-100); Mean Platelet Volume 10.6 fL (7.4-10.4); Platelet Count 88 K/uL (130-400); RDW Standard Deviation 57.4 fL (36.4-46.3); Red Blood Count 4.68 M/uL (4.2-5.4); White Blood Count 4.25 K/uL (4.8-10.8)
[2019-02-19 20:56] LABS: Basophils # (auto) 0.01 K/uL (0-0.2); Basophils % (auto) 0.2 %; Echinocytes 1+; Immature Granulocytes # (auto) 0.08 K/uL (0.00-0.02); Immature Granulocytes % (auto) 1.9 %; Lymphocytes # (auto) 0.35 K/uL (1.2-3.4); Lymphocytes % (auto) 8.2 %; Monocytes # (auto) 0.04 K/uL (0.11-0.59); Monocytes % (auto) 0.9 %; Neutrophils # (auto) 3.77 K/uL (1.4-6.5); Neutrophils % (auto) 88.8 %; Platelet Estimate Decreased (Normal)
[2019-02-19 21:22] LABS: Giant Platelets 1+
[2019-02-19] MEDS ORDERED: IOVERSOL 100ml IV PRN (21:29)
[2019-02-19] MEDS ORDERED: DOXYCYCLINE HYCLATE 100 MG CAP PO STA (21:35)
[2019-02-19] MEDS ORDERED: FAMOTIDINE 20MG/5ML IV PUSH IV STA (21:35)
--- NOTE | 2019-02-19 22:08 | CT Scan Report ---
CT OF THE HEAD WITHOUT CONTRAST CLINICAL HISTORY: Fatigue. Confusion. COMPARISON STUDY: Head CT April 07, 2017. CT DOSE: 537.48 mGy.cm TECHNIQUE: Helical axial images of the head were obtained without IV contrast. Automated exposure con trol was utilized for the study. A dose lowering technique was utilized adhering to the principles o f ALARA. FINDINGS: No acute intracranial hemorrhage, midline shift or mass effect is present. Ventricular syst em is normal. The basilar cisterns are patent. There are no extra axial collections. White matter hyp odensities suggest small vessel disease. There are no findings to suggest acute dural sinus thrombosi s or acute territorial infarct. There is an old lacunar infarct within the left thalamus. There are n o significant calvarial abnormalities. IMPRESSION: No acute intracranial findings. Electronically signed by: Cody Estrada M.D. 02/19/2019 10:06 PM
--- NOTE | 2019-02-19 22:23 | CT Scan Report ---
CT OF THE ABDOMEN AND PELVIS WITH CONTRAST CLINICAL HISTORY: Nausea, vomiting and diarrhea. COMPARISON STUDY: Abdominal series performed earlier today. TECHNIQUE: Following IV administration of 90 mL of Optiray-320, axial images of the abdomen and pelvi s were obtained from the lung bases to the proximal femurs. Images were reviewed in the axial, sagitt al, and coronal planes. IV contrast was administered without complication. Automated exposure contro l was utilized for the study. A dose lowering technique was utilized adhering to the principles of A [place]. CT DOSE: 311.18 mGy.cm FINDINGS: Imaged portions of the lower chest demonstrate a moderate sized hiatal hernia with partiall y intrathoracic stomach. Note is made of a few subpleural nodular opacities within the right lower lo be measure up to 2.3 cm. No pneumatosis, free air or portal venous gas is present. The liver is unrem arkable with the exception of a small medial segment cyst. The spleen, adrenal glands are unremarkabl e. Water attenuation bilateral renal lesions favor cysts. Several lesions are too small to characteri ze. There is no hydronephrosis. No biliary or pancreatic ductal dilatation is present. Abdominal aort a is ectatic. There is extensive plaque. Gallstones within gallbladder noted. There is no evidence fo r acute cholecystitis. The appendix is unremarkable. There is sigmoid diverticulosis without evidence for acute diverticulitis. Colon is mildly fluid-filled. No bowel wall thickening is identified. Ther e are are old lower thoracic and lumbar spine compression fractures. IMPRESSION: 1. Fluid-filled colon which may reflect a diarrheal state. 2. A few subpleural nodular opacities within the right lower lobe measure up to 2.3 cm. These are ind eterminate and a follow-up chest CT is recommended as a neoplastic process would be difficult to excl ude. 3. Cholelithiasis. No evidence for acute cholecystitis. 4. Moderate sized hiatal hernia. Electronically signed by: Cody Estrada M.D. 02/19/2019 10:22 PM
[2019-02-19 23:00] LABS: Lyme Ab IgG w/WB Rflx Negative (Negative); Lyme Ab IgM w/WB Rflx Negative (Negative)
--- NOTE | 2019-02-19 23:37 | History & Physical Report ---
Date of Service February 19, 2019 Assessment & Plan (1) Hypoxia: Patient with mild hypoxia on room air, 88%. No respiratory distress. No complaint of SOB/BAHENA/orthopnea/edema/weight gain. Also with elevated BNP, bibasilar crackles on exam. Concern for CHF - patient with history of CAD s/p CABG, hisory of bioprosthetic mitral valve. Echo from 2011 with normal LV size and function, EF of 60-65%, hypokinesis of basal posterolateral wall and basal inferior wall. Grade I diastolic dysfunction. Patient with low probability of PE per Wells criteria -Admit to medical floor -Check 2D echo in the AM Present on Admission?: Yes (2) Elevated brain natriuretic peptide (BNP) level: As above, consider new CHF. Patient with bibasilar crackles on exam, otherwise appears slightlly dry on exam -2D echo as above -Low Na diet Present on Admission?: Yes (3) Back pain: Patient with chronic back pain, acutely worsening. Concern for compression fracture, has had them in the past. No trauma or falls -Check XR T and L spine -Continue Vitamin D Present on Admission?: Yes (4) Nausea, vomiting, and diarrhea: Patient most likely with viral gastroenteritis vs tick borne illness, Anaplasmosis can present with nausea/vomiting/diarrhea and anorexia early in illness as well -Symptomatic management -Gentle IVF -Zofran PRN -Stool studies sent from ER Present on Admission?: Yes (5) CAD (coronary artery disease): Stable. Patient denies chest pain -Continue Aspirin, Coreg, Simvastatin, CoQ10 Present on Admission?: Yes (6) Anemia: H/H = 13.5 and 40.9, respectively. Up from prior values of 13.5 and 34.1, respectively. No active bleed -Continue to monitor -Continue Folic Acid (7) Thrombocytopenia: Platelets=88, normal on prior studies from last year. ?tick borne illness -Follow Anaplasmosis labs -CBC in AM Present on Admission?: Yes (8) Arthritis: Chronic. Stable -Continue home prednisone F/E/N- Heplock, monitor electrolytes and replete as needed, Heart healthy, low Na diet as tolerated Ppx - Lovenox, Ranitidine Code - Full Dispo - Admit to medical floor History of Present Illness Chief Complaint: nausea/vomiting/diarrhea, recent tick bite, hypoxia Primary Care Provider: Damion Carballo Alyse Cedillo is a pleasant 79 yo female with history of CAD s/p CABG with subsequent stenting, bioprosthetic mitral valve replacement, breast cancer s/p mastectomy presenting with multiple complaints. Patient with two weeks of lower thoracic back pain, progressively worsening over the weekend, Monday - Monday. Pain quite severe, lower thoracic, worse with movement. Difficulty with ambulation and ADLs. Patient is on chronic prednisone for arthritis and has had compression fractures in the past and feels that this is similar. She denies numbness/tingling or focal weakness. No tr auma, falls, fevers or chills. She had a tick bite approximately one month ago that was treated with a single dose of Doxycycline. She had another tick bite 4 days ago. No rash developed. No fevers. This morning she developed nausea with 20-25 episodes of spitting up phlegm. No food in vomitus, no hematemesis or coffee ground material. Also with 5-6 episodes of loose stools. Patient with subsequent diffuse weakness and fatigue. Denies changes in diet or medication, no recent travel or sick contacts. Patient presently complains of fatigue. No additional complaints at this time. Notably denies chest pain, palpitations, SOB, BAHENA, cough, orthopnea, edema or weight gain. Patient afebrile, hemodynamically stable 88% on room air. Patient with no known lung disease. No history of CHF. By report, she had a cardiac stress test in the fall of 2017 that was unremarkable. She had a lung nodule that was being followed radiographically for > 10 years that was biopsied in the fall as well that was negative for malignancy. ER Course: Doxycycline, Pepcid, Zofran, NSS Allergies Allergy/AdvReac Type Severity Reaction Status Date / Time lorazepam AdvReac Severe DELIRIUM Unverified 02/19/19 18:06 promethazine AdvReac Severe DELIRIUM Unverified 02/19/19 18:06 Home Medications Home Medications Medication Instructions Recorded Confirmed Type aspirin 81 mg PO DAILY 02/19/19 02/19/19 History carvedilol [Coreg] 3.125 mg PO BID 02/19/19 02/19/19 History cholecalciferol (vitamin D3) 2,000 unit PO DAILY 02/19/19 02/19/19 History [Vitamin D3] folic acid 1 mg PO DAILY 02/19/19 02/19/19 History prednisone 5 mg PO BID 02/19/19 02/19/19 History ranitidine HCl 150 mg PO BID 02/19/19 02/19/19 History simvastatin 40 mg PO PM 02/19/19 02/19/19 History tramadol 50 mg PO BID PRN 02/19/19 02/19/19 History zoledronic pyqd-oatghijz-vlflb 5 mg IV YEARLY 02/19/19 02/19/19 History [Reclast] Past Med/Surg History Medical History Compression fracture (Chronic) Anemia Arthritis Breast cancer CAD (coronary artery disease) s/p CABG with stenting Surgical History History of coronary artery bypass graft History of coronary artery stent placement History of mastectomy History of mitral valve replacement History of shoulder surgery Family History Other Family history non-contributory Social History Feels Safe at Home: Yes Smoking Status: Never smoker Hx Alcohol Use: No Hx Substance Use: No Review of Systems Review of Systems: All systems reviewed & are unremarkable except as noted in HPI & below Physical Exam Physical Exam: General: patient resting comfortably, NAD, non-toxic in appearance, AA&O x 4, appears fatigued Skin: warm, dry, intact, no rashes or lesions HEENT: NC/AT, PERRL, EOMI, anicteric sclera, conjunctiva without injection, external ear normal to inspection and nontender, nares patent, dry mucus membranes, dentition intact, no oropharyngeal lesions, neck supple, trachea midline, no LAD, no thyromegaly, no JVD Heart: +S1/S2, regular, soft ERIN at apex, no r/g Lungs: equal air entry bilaterally, no rhonchi/wheezes,, bibasilar rales Abd: +BS, soft, NT/ND, no masses/organomegaly/ascites Ext: warm, 2+ pulses in UE/LE bilaterally, no clubbing/cyanosis or edema Neuro: nonfocal, patient AA&O x 4, speech intact, no facial droop, moving all extremities on command with equal strength 5/5 Results & Data Vital Signs (Past 12 Hours) Vital Signs Temp Pulse Pulse Resp BP BP Pulse Ox 02/19/19 22:59 92 H 20 137/71 94 02/19/19 21:58 84 20 96 02/19/19 20:52 93 H 20 141/79 H 98 02/19/19 20:08 87 20 92 02/19/19 17:55 92 H 20 129/64 90 02/19/19 17:46 37.1 C 91 H 16 120/70 93 Laboratory Results Lab Results 02/19/19 02/19/19 02/19/19 Range/Units 19:32 19:32 19:47 WBC 4.25 L (4.8-10.8) K/uL RBC 4.68 (4.2-5.4) M/uL Hgb 13.5 (12.0-16.0) g/dL Hct 40.9 (37-47) % MCV 87.4 (80-100) fL MCH 28.8 (25-34) pg MCHC 33.0 (32-36) g/dL RDW Std Deviation 57.4 H (36.4-46.3) fL RDW Coeff of Nina 18.0 H (11.5-14.5) % Plt Count 88 L (130-400) K/uL MPV 10.6 H (7.4-10.4) fL Immature Gran % (Auto) 1.9 % Neut % (Auto) 88.8 % Lymph % (Auto) 8.2 % Morrow % (Auto) 0.9 % Eos % (Auto) 0.0 % Baso % (Auto) 0.2 % Immature Gran # (Auto) 0.08 H (0.00-0.02) K/uL Neut # (Auto) 3.77 (1.4-6.5) K/uL Lymph # (Auto) 0.35 L (1.2-3.4) K/uL Morrow # (Auto) 0.04 L (0.11-0.59) K/uL Eos # (Auto) 0.00 (0-0.5) K/uL Baso # (Auto) 0.01 (0-0.2) K/uL Blood Smear Review Platelet Estimate Decreased L (Normal) Giant Platelets 1+ Echinocytes 1+ Sodium 133 L (136-145) mmol/L Potassium 4.2 (3.5-5.1) mmol/L Chloride 102 (98-107) mmol/L Carbon Dioxide 22 (21-32) mmol/L Anion Gap 9.0 (3-11) BUN 29 H (7-18) mg/dl Creatinine 1.03 (0.6-1.2) mg/dl Est Cr Clr Drug Dosing Not Reportable Est GFR ( Amer) 59.9 Est GFR (Non-Af Amer) 51.7 BUN/Creatinine Ratio 28.5 H (10-20) Glucose 90 (70-99) mg/dl POC Lactic Acid Malachi 2.02 H (0.90-1.70) mmol/L Calcium 8.5 (8.5-10.1) mg/dl Magnesium 2.2 (1.8-2.4) mg/dl Total Bilirubin 0.8 (0.2-1) mg/dl AST 87 H (15-37) U/L ALT 58 (12-78) U/L Alkaline Phosphatase 88 (45-117) U/L Troponin I < 0.015 (0-0.045) ng/ml NT-Pro-B Natriuret Pep 4380 H (0-1800) pg/ml Total Protein 7.1 (6.4-8.2) gm/dl Albumin 2.9 L (3.4-5.0) gm/dl Globulin 4.2 H (2.5-4.0) gm/dl Albumin/Globulin Ratio 0.7 L (0.9-2) Lipase 175 (73-393) U/L TSH 0.726 (0.300-4.500) uIu/ml Lyme Disease IgG Ab (Negative) Lyme Disease IgM Ab (Negative) 02/19/19 Range/Units 21:56 WBC (4.8-10.8) K/uL RBC (4.2-5.4) M/uL Hgb (12.0-16.0) g/dL Hct (37-47) % MCV (80-100) fL MCH (25-34) pg MCHC (32-36) g/dL RDW Std Deviation (36.4-46.3) fL RDW Coeff of Nina (11.5-14.5) % Plt Count (130-400) K/uL MPV (7.4-10.4) fL Immature Gran % (Auto) % Neut % (Auto) % Lymph % (Auto) % [place]row % (Auto) % Eos % (Auto) % Baso % (Auto) % Immature Gran # (Auto) (0.00-0.02) K/uL Neut # (Auto) (1.4-6.5) K/uL Lymph # (Auto) (1.2-3.4) K/uL Morrow # (Auto) (0.11-0.59) K/uL Eos # (Auto) (0-0.5) K/uL Baso # (Auto) (0-0.2) K/uL Blood Smear Review Platelet Estimate (Normal) Giant Platelets Echinocytes Sodium (136-145) mmol/L Potassium (3.5-5.1) mmol/L Chloride (98-107) mmol/L Carbon Dioxide (21-32) mmol/L Anion Gap (3-11) BUN (7-18) mg/dl Creatinine (0.6-1.2) mg/dl Est Cr Clr Drug Dosing Est GFR ( Amer) Est GFR (Non-Af Amer) BUN/Creatinine Ratio (10-20) Glucose (70-99) mg/dl POC Lactic Acid Malachi (0.90-1.70) mmol/L Calcium (8.5-10.1) mg/dl Magnesium (1.8-2.4) mg/dl Total Bilirubin (0.2-1) mg/dl AST (15-37) U/L ALT (12-78) U/L Alkaline Phosphatase (45-117) U/L Troponin I (0-0.045) ng/ml NT-Pro-B Natriuret Pep (0-1800) pg/ml Total Protein (6.4-8.2) gm/dl Albumin (3.4-5.0) gm/dl Globulin (2.5-4.0) gm/dl Albumin/Globulin Ratio (0.9-2) Lipase (73-393) U/L TSH (0.300-4.500) uIu/ml Lyme Disease IgG Ab Negative (Negative) Lyme Disease IgM Ab Negative (Negative) Diagnostic Findings CT OF THE HEAD WITHOUT CONTRAST CLINICAL HISTORY: Fatigue. Confusion. COMPARISON STUDY: Head CT April 07, 2017. CT DOSE: 537.48 mGy.cm TECHNIQUE: Helical axial images of the head were obtained without IV contrast. Automated exposure control was utilized for the study. A dose lowering technique was utilized adhering to the principles of ALARA. FINDINGS: No acute intracranial hemorrhage, midline shift or mass effect is present. Ventricular system is normal. The basilar cisterns are patent. There are no extra axial collections. White matter hypodensities suggest small vessel disease. There are no findings to suggest acute dural sinus thrombosis or acute territorial infarct. There is an old lacunar infarct within the left thalamus. There are no significant calvarial abnormalities. IMPRESSION: No acute intracranial findings. Electronically signed by: Cody Estrada M.D. 02/19/2019 10:06 PM Dictated: 02/19/192203 Transcribed: 02/19/192203 CT OF THE ABDOMEN AND PELVIS WITH CONTRAST CLINICAL HISTORY: Nausea, vomiting and diarrhea. COMPARISON STUDY: Abdominal series performed earlier today. TECHNIQUE: Following IV administration of 90 mL of Optiray-320, axial images of the abdomen and pelvis were obtained from the lung bases to the proximal femurs. Images were reviewed in the axial, sagittal, and coronal planes. IV contrast was administered without complication. Automated exposure control was utilized for the study. A dose lowering technique was utilized adhering to the principles of ALARA. CT DOSE: 311.18 mGy.cm FINDINGS: Imaged portions of the lower chest demonstrate a moderate sized hiatal hernia with partially intrathoracic stomach. Note is made of a few subpleural nodular opacities within the right lower lobe measure up to 2.3 cm. No pneumatosis, free air or portal venous gas is present. The liver is unremarkable with the exception of a small medial segment cyst. The spleen, adrenal glands are unremarkable. Water attenuation bilateral renal lesions favor cysts. Several lesions are too small to characterize. There is no hydronephrosis. No biliary or pancreatic ductal dilatation is present. Abdominal aorta is ectatic. There is extensive plaque. Gallstones within gallbladder noted. There is no evidence for acute cholecystitis. The appendix is unremarkable. There is sigmoid diverticulosis without evidence for acute diverticulitis. Colon is mildly fluid- filled. No bowel wall thickening is identified. There are are old lower thoracic and lumbar spine compression fractures. IMPRESSION: 1. Fluid-filled colon which may reflect a diarrheal state. 2. A few subpleural nodular opacities within the right lower lobe measure up to 2.3 cm. These are indeterminate and a follow-up chest CT is recommended as a neoplastic process would be difficult to exclude. 3. Cholelithiasis. No evidence for acute cholecystitis. 4. Moderate sized hiatal hernia. Electronically signed by: Cody Estrada M.D. 02/19/2019 10:22 PM Dictated: 02/19/194 Transcribed: 02/19/19 2214 PA CHEST RADIOGRAPH AND UPRIGHT AND SUPINE AP RADIOGRAPHS OF THE ABDOMEN CLINICAL HISTORY: Nausea, vomiting and diarrhea COMPARISON STUDY: Chest radiograph April 07, 2017. FINDINGS: Prosthetic cardiac valve, median sternotomy wires and right shoulder arthroplasty are incidentally noted. There is a trace left pleural effusion. There is no evidence for pulmonary edema. No consolidation is identified. Mild cardiomegaly is noted. There is no evidence for free air. There may be a hiatal hernia. Bowel gas pattern is within normal limits. There is extensive vascular calcification. IMPRESSION: 1. No free air or evidence of bowel obstruction. 2. Suspected moderate-sized hiatal hernia. 3. Trace left pleural effusion. Electronically signed by: Cody Estrada M.D. 02/19/2019 8:38 PM Dictated: 02/19/192035 Transcribed: 02/19/192035 ECG Additional Comments: The study shows NSR at 86bpm, slight right axis deviation, IU=762, QRS=88, RMq=758, no acute ischemic changes Code Status & VTE Plan Code Status FULL VTE Prophylaxis Plan VTE Prophylaxis will be ordered: Yes (1) CAD (coronary artery disease) Coronary Disease-Associated Artery/Lesion type: unspecified vessel or lesion type [place] vs. transplanted heart: [place] heart Associated angina: without angina Qualified Code(s): I25.10 - Atherosclerotic heart disease of [place] coronary artery without angina pectoris (2) Anemia Anemia type: unspecified type Qualified Code(s): D64.9 - Anemia, unspecified (3) Back pain Back pain location: thoracic back pain Chronicity: acute Back pain laterality: midline Qualified Code(s): M54.6 - Pain in thoracic spine
[2019-02-20] MEDS ORDERED: ACETAMINOPHEN 325 MG TAB PO PRN (00:25)
[2019-02-20 00:44] LABS: Phosphorus 3.4 mg/dl (2.5-4.9)
[2019-02-20 00:58] LABS: Hematocrit (blood only) 36.6 % (37-47); Hemoglobin 11.9 g/dL (12.0-16.0); Mean Corpuscular Hgb Conc 32.5 g/dL (32-36); Mean Corpuscular Volume 87.6 fL (80-100); RDW Standard Deviation 57.5 fL (36.4-46.3); Red Blood Count 4.18 M/uL (4.2-5.4); White Blood Count 3.62 K/uL (4.8-10.8)
[2019-02-20 01:02] LABS: Mean Platelet Volume 10.1 fL (7.4-10.4); Platelet Count 71 K/uL (130-400)
[2019-02-20 01:09] LABS: Prothrombin Time 10.5 Seconds (9.0-12.0)
[2019-02-20 01:14] LABS: BUN Creatinine Ratio 30.8 (10-20); Calcium 7.7 mg/dl (8.5-10.1); Creatinine Clr Calc Pharmacy 47.7 ml/min; Est GFR (African American) 74.5; Est GFR (Non-African American) 64.3; Potassium 3.9 mmol/L (3.5-5.1)
[2019-02-20 01:21] LABS: Giant Platelets 1+; Immature Granulocytes # (auto) 0.05 K/uL (0.00-0.02); Immature Granulocytes % (auto) 1.4 %; Lymphocytes # (auto) 0.28 K/uL (1.2-3.4); Lymphocytes % (auto) 7.7 %; Monocytes # (auto) 0.04 K/uL (0.11-0.59); Monocytes % (auto) 1.1 %; Neutrophils # (auto) 3.25 K/uL (1.4-6.5); Neutrophils % (auto) 89.8 %; Toxic Vacuolation Occasional
[2019-02-20] MEDS: ONDANSETRON INJ 2 MG/ML 2 ML VIAL IV PRN ×3 (02:14→09:44)
[2019-02-20 04:21] LABS: Appearance Urine Clear (Clear); Bacteria Urine Automated Negative (Negative); Bilirubin Urine Negative (Negative); Blood Urine Trace (Negative); Color Urine Dark Yellow; Epithelial Cell Urine Auto 20-30 /lpf (0-5); Glucose Urine UA Negative (Negative); Ketones Urine Negative (Negative); Leukocyte Esterase Urine Negative (Negative); Nitrite Urine Negative (Negative); Protein Urine 2+ (Negative); Specific Gravity Urine > 1.045 (1.000-1.030); Urobilinogen Urine Positive (Negative); pH Urine 6.5 (4.5-7.5)
[2019-02-20 05:24] LABS: RBC Urine Automated 0-4 /hpf (0-4)
[2019-02-20] MEDS: TRAMADOL HCL 50 MG TABLET PO PRN (05:33)
--- NOTE | 2019-02-20 08:33 | XRay Report ---
XR thoracic spine 2V CLINICAL HISTORY: ?compression fracture. Back pain. COMPARISON STUDY: Thoracic spine MRI 04/22/2016. FINDINGS: Mild S-shaped scoliosis of the thoracolumbar spine. Paraspinal soft tissues are unremarkabl e. Kyphotic deformity within the mid to lower thoracic spine. Moderate compression deformities at T6, T8, T9, T10, and L1 remain unchanged. Severe compression deformity at T12 is also unchanged. Mild in ferior endplate compression deformity at T3 is also stable. No acute compression fractures within the thoracic spine. IMPRESSION: Multiple old compression fractures seen throughout the thoracic spine. No acute compress ion fractures identified. Electronically signed by: Alex Desouza M.D. 02/20/2019 8:32 AM
--- NOTE | 2019-02-20 08:39 | XRay Report ---
XR lumbar spine 2-3V HISTORY: 79 years-old Female ?compression fracture acute low back pain COMPARISON: CT abdomen and pelvis 02/19/2019, thoracic spine MRI 04/22/2016 TECHNIQUE: 2 views of the lumbar spine. FINDINGS: Demineralized appearance of the bones. Convex right curvature of the thoracic spine. Chronic changes of the lower chest. Retained contrast noted about the urinary bladder. Cholelithiasis. Arterial calci fications are noted. Hiatal hernia. Remote compression deformities are again noted at T12 and L1 with mild age-indeterminate superior endplate compression of less than 20% at L2 and L3. Severe disc spac e narrowing at L3-L4. Severe multilevel facet arthrosis. Multiple remote mid thoracic compression def ormities. IMPRESSION: 1. Multiple remote thoracic spine compression deformities redemonstrated with unchanged remote L1 com pression deformity. 2. Mild superior endplate compression of less than 20% at L2 and L3 is age-indeterminate however appe ars likely chronic. The above report was generated using voice recognition software. It may contain grammatical, syntax o r spelling errors. Electronically signed by: Dae Montanez M.D. 02/20/2019 8:37 AM
[2019-02-20] MEDS: SODIUM CHLORIDE 0.9% 1000ML 1,000 ML IV SCH (09:30)
[2019-02-20] MEDS: FOLIC ACID 1 MG TAB PO SCH (09:38)
[2019-02-20] MEDS: ASPIRIN 81 MG ECTAB PO SCH (09:38)
[2019-02-20] MEDS: DOXYCYCLINE HYCLATE 100 MG in DEXTROSE 5% 100 ML IV SCH ×2 (09:38→22:10)
[2019-02-20] MEDS: CARVEDILOL 6.25 MG TAB PO SCH ×2 (09:38→22:00)
[2019-02-20] MEDS: predniSONE 5 MG TAB PO SCH ×2 (09:39→21:59)
[2019-02-20] MEDS: ENOXAPARIN INJ 30 MG/0.3 ML SYR SQ SCH (09:39)
[2019-02-20] MEDS: CHOLECALCIFEROL 1,000 UNITS TAB PO SCH (09:39)
[2019-02-20] MEDS ORDERED: SODIUM CHLORIDE 0.9% 1000ML 1,000 ML IV SCH (10:30)
--- NOTE | 2019-02-20 11:16 | CT Scan Report ---
CT chest wo con CT DOSE: 196.38 mGy.cm HISTORY: Follow-up right lower lobe nodules. TECHNIQUE: Multiaxial CT images of the chest were performed without contrast. A dose lowering techni que was utilized adhering to the principles of ALARA. COMPARISON: Abdomen and pelvis CT 02/19/2019. Chest CT 05/10/2007. FINDINGS: No mediastinal or hilar lymphadenopathy. The visualized unenhanced liver, spleen, and adren al glands are unremarkable. Residual contrast within the renal collecting systems from the prior CT e xamination. Moderate hiatus hernia is again noted. 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 Dilated main pulmonary artery measuring up to 3.5 cm. This is consistent with pulmonary hypertension. The heart is mildly enlarged. No pericardial effusion. Tr t[place]ira left pleural effusion. Coronary artery calcifications. Mitral valve prosthesis. Poststernotomy ch anges. Collapsed right breast implant. Slightly hyperdense nodules inferior to the collapsed breast i mplant may represent extrusion of silicone. Redemonstration of the pleural-based nodules within the r ight lung. These involve the right lower lobe pleural as well as the minor fissure. Dominant cold nod ule within the right lung base measures 2.3 x 1.1 cm. The nodules along the right major fissure measu res up to 5 mm. No pneumothorax. The central airways are patent. Linear densities within the left low er lobe are nonspecific but favor atelectasis or scarring. Healing right medial clavicle fracture. No suspicious lytic or blastic osseous lesions. There is a right shoulder prosthesis. Multiple old comp ression fractures seen within the thoracic spine. IMPRESSION: 1. A few right lower lobe pleural-based nodules with the largest measuring 2.3 x 1.1 cm. These are no nspecific but could represent metastatic disease. 2. Trace left pleural effusion. 3. Moderate hiatus hernia, unchanged. 4. Cardiomegaly with pulmonary hypertension. 5. Healing right medial clavicle fracture. 6. Multiple old compression fractures within the thoracic spine. 7. Additional findings as described above. Electronically signed by: Alex Desouza M.D. 02/20/2019 11:14 AM
--- NOTE | 2019-02-20 18:11 | Hospitalist Progress Note ---
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 Chest CT 02/19 showed: IMPRESSION: 1. A few right lower lobe pleural-based nodules with the largest measuring 2.3 x 1.1 cm. These are nonspecific but could represent metastatic disease. 2. Trace left pleural effusion. 3. Moderate hiatus hernia, unchanged. 4. Cardiomegaly with pulmonary hypertension. 5. Healing right medial clavicle fracture. 6. Multiple old compression fractures within the thoracic spine. Echo:left asymmetric ventricular hypertrophy, mild aortic regurgitation, mild mitral regurgitation, moderate tricuspid regurgitation, EF 55%, elevated right ventricular pressures, Hypoxia could be related to bronchitis secondary to anaplasmosis -will follow (3) Elevated brain natriuretic peptide (BNP) level: Echo without apparent CHF, no apparent CHF on CT chest, dry appearing labs - will gently hydrate x1 L NSS (4) Back pain: Patient with chronic back pain, acutely worsening. - no new compression fractures on Xrays, has remote/older compression fractures -Continue Vitamin D - lidocaine patches, scheduled tylenol, PT/OT - has seen Dr. Mathew in the past for compression fractures (5) Nausea, vomiting, and diarrhea: Possibly secondary to anaplasmosis -Symptomatic management -Gentle IVF -Zofran PRN -Stool studies sent from ER (6) CAD (coronary artery disease): Stable. Patient denies chest pain -Continue Aspirin, Coreg, but hold simvastatin for elevated LFTs, can continue CoQ10 (7) Anemia: H/H = Hgb decreased to 11 today, No active bleed -Continue to monitor -Continue Folic Acid - cbc am (8) Thrombocytopenia: Platelets=71,000, normal on prior studies from last year. ?tick borne illness -Follow Anaplasmosis labs - inclusion bodies on peripheral smear -CBC in AM -Hold aspirin and Lovenox if trends less than 50,000 (9) Arthritis: Chronic. Stable -Continue home prednisone - stress dose with IV hydrocortisone due to decreased BP (10) DVT prophylaxis: enoxaparin Supervising Physician Co-Signing Physician Notes MANAGER OUTPATIENT supervision Note: I did not personally see or examine the patient today, but I verified all hess points of CHELLY Cordova's assessment and plan with the following exceptions/additions: None Labs appear dehydrated with elevated specific gravity in the urine, mild metabolic acidosis,, mild hyponatremia-increase IV fluids to 100 mL's per hour -Starting IV hydrocortisone for stress dose steroids given lower blood pressures later in the day Subjective Ms. Cedillo continues to have back pain with movement but is comfortable while lying in bed. She denies any radiculopathy, saddle anesthesia, or changes in bowels or bladder. She is not short of breath. Review of Systems Review of Systems: All systems reviewed & are unremarkable except as noted in HPI & below Physical Exam Physical Exam: General: no distress Eyes: normal inspection, PERLL Respiratory: chest non tender, clear to auscultation, normal breath sounds, no respiratory distress, no accessory muscle use Cardiac: regular rate and rhythm, no rub or gallop, no murmur, no edema, no jvd GI/: active bowel sounds, no abd pain or tenderness, soft, non distended Extremities: normal range of motion, normal strength, non tender Neuro/Psych: alert and oriented x 3, normal mood and affect Skin: normal color, dry Results & Data Vital Signs (Past 12 Hours) Vital Signs Temp Pulse Resp BP Pulse Ox 02/20/19 15:44 36.5 C 73 16 93/57 L 97 02/20/19 07:41 37.2 C 83 16 116/71 91 Laboratory Results 02/20/19 02/20/19 02/20/19 Range/Units 02:30 00:46 00:46 WBC (4.8-10.8) K/uL RBC (4.2-5.4) M/uL Hgb (12.0-16.0) g/dL Hct (37-47) % MCV (80-100) fL MCH (25-34) pg MCHC (32-36) g/dL RDW Std Deviation (36.4-46.3) fL RDW Coeff of Nina (11.5-14.5) % Plt Count (130-400) K/uL MPV (7.4-10.4) fL Immature Gran % (Auto) % Neut % (Auto) % Lymph % (Auto) % [place] % (Auto) % Eos % (Auto) % Baso % (Auto) % Immature Gran # (Auto) (0.00-0.02) K/uL Neut # (Auto) (1.4-6.5) K/uL Lymph # (Auto) (1.2-3.4) K/uL [place] # (Auto) (0.11-0.59) K/uL Eos # (Auto) (0-0.5) K/uL Baso # (Auto) (0-0.2) K/uL Toxic Vacuolation Giant Platelets PT 10.5 (9.0-12.0) Seconds INR 1.0 (0.9-1.1) Sodium 131 L (136-145) mmol/L Potassium 3.9 (3.5-5.1) mmol/L Chloride 103 (98-107) mmol/L Carbon Dioxide 19 L (21-32) mmol/L Anion Gap 9.0 (3-11) BUN 27 H (7-18) mg/dl Creatinine 0.86 (0.6-1.2) mg/dl Est Cr Clr Drug Dosing 47.7 ml/min Est GFR ( Amer) 74.5 Est GFR (Non-Af Amer) 64.3 BUN/Creatinine Ratio 30.8 H (10-20) Glucose 93 (70-99) mg/dl Calcium 7.7 L (8.5-10.1) mg/dl Phosphorus (2.5-4.9) mg/dl Urine Color Dark Yellow Urine Appearance Clear (Clear) Urine pH 6.5 (4.5-7.5) Ur Specific [place] > 1.045 H (1.000-1.030) Urine Protein 2+ H (Negative) Urine Glucose (UA) Negative (Negative) Urine Ketones Negative (Negative) Urine Blood Trace H (Negative) Urine Nitrite Negative (Negative) Urine Bilirubin Negative (Negative) Urine Urobilinogen Positive H (Negative) Ur Leukocyte Esterase Negative (Negative) Urine WBC (Auto) 1-5 (0-5) /hpf Urine RBC (Auto) 0-4 (0-4) /hpf U Hyaline Cast (Auto) 1-5 (0-5) /lpf U Epithel Cells (Auto) 20-30 H (0-5) /lpf Urine Bacteria (Auto) Negative (Negative) Lyme Disease IgG Ab (Negative) Lyme Disease IgM Ab (Negative) 02/20/19 02/19/19 02/19/19 Range/Units 00:46 21:56 19:32 WBC 3.62 L (4.8-10.8) K/uL RBC 4.18 L (4.2-5.4) M/uL Hgb 11.9 L (12.0-16.0) g/dL Hct 36.6 L (37-47) % MCV 87.6 (80-100) fL MCH 28.5 (25-34) pg MCHC 32.5 (32-36) g/dL RDW Std Deviation 57.5 H (36.4-46.3) fL RDW Coeff of Nina 18.0 H (11.5-14.5) % Plt Count 71 L (130-400) K/uL MPV 10.1 (7.4-10.4) fL Immature Gran % (Auto) 1.4 % Neut % (Auto) 89.8 % Lymph % (Auto) 7.7 % [place] % (Auto) 1.1 % Eos % (Auto) 0.0 % Baso % (Auto) 0.0 % Immature Gran # (Auto) 0.05 H (0.00-0.02) K/uL Neut # (Auto) 3.25 (1.4-6.5) K/uL Lymph # (Auto) 0.28 L (1.2-3.4) K/uL [place] # (Auto) 0.04 L (0.11-0.59) K/uL Eos # (Auto) 0.00 (0-0.5) K/uL Baso # (Auto) 0.00 (0-0.2) K/uL Toxic Vacuolation Occasional Giant Platelets 1+ PT (9.0-12.0) Seconds INR (0.9-1.1) Sodium (136-145) mmol/L Potassium (3.5-5.1) mmol/L Chloride (98-107) mmol/L Carbon Dioxide (21-32) mmol/L Anion Gap (3-11) BUN (7-18) mg/dl Creatinine (0.6-1.2) mg/dl Est Cr Clr Drug Dosing ml/min Est GFR ( Amer) Est GFR (Non-Af Amer) BUN/Creatinine Ratio (10-20) Glucose (70-99) mg/dl Calcium (8.5-10.1) mg/dl Phosphorus 3.4 (2.5-4.9) mg/dl Urine Color Urine Appearance (Clear) Urine pH (4.5-7.5) Ur Specific [place] (1.000-1.030) Urine Protein (Negative) Urine Glucose (UA) (Negative) Urine Ketones (Negative) Urine Blood (Negative) Urine Nitrite (Negative) Urine Bilirubin (Negative) Urine Urobilinogen (Negative) Ur Leukocyte Esterase (Negative) Urine WBC (Auto) (0-5) /hpf Urine RBC (Auto) (0-4) /hpf U Hyaline Cast (Auto) (0-5) /lpf U Epithel Cells (Auto) (0-5) /lpf Urine Bacteria (Auto) (Negative) Lyme Disease IgG Ab Negative (Negative) Lyme Disease IgM Ab Negative (Negative) (1) CAD (coronary artery disease) Associated angina: without angina Coronary Disease-Associated Artery/Lesion type: unspecified vessel or lesion type [place] vs. transplanted heart: [place] heart Qualified Code(s): I25.10 - Atherosclerotic heart disease of [place] coronary artery without angina pectoris (2) Anemia Anemia type: unspecified type Qualified Code(s): D64.9 - Anemia, unspecified (3) Back pain Back pain laterality: midline Back pain location: thoracic back pain Chronicity: acute Qualified Code(s): M54.6 - Pain in thoracic spine
[2019-02-20] MEDS ORDERED: ACETAMINOPHEN SOLN 500 MG/15.62 ML UDP PO SCH (18:30)
[2019-02-20] MEDS: LIDOCAINE 5% 1 PATCH TD SCH (19:44)
[2019-02-20] MEDS ORDERED: SIMVASTATIN 40 MG TAB PO SCH (21:00)
[2019-02-20] MEDS: HYDROCORTISONE SOD 50 MG in SYRINGE 0 ML IV SCH (22:04)
[2019-02-21] MEDS: ACETAMINOPHEN SOLN 160 MG/5 ML BTL PO SCH ×3 (05:47→21:16)
[2019-02-21 05:58] LABS: Hematocrit (blood only) 37.1 % (37-47); Hemoglobin 12.2 g/dL (12.0-16.0); Mean Corpuscular Hgb Conc 32.9 g/dL (32-36); Mean Corpuscular Volume 87.1 fL (80-100); RDW Coefficient of Variation 17.8 % (11.5-14.5); RDW Standard Deviation 57.1 fL (36.4-46.3); Red Blood Count 4.26 M/uL (4.2-5.4); White Blood Count 2.52 K/uL (4.8-10.8)
[2019-02-21 06:24] LABS: Albumin Level 2.6 gm/dl (3.4-5.0); BUN Creatinine Ratio 24.7 (10-20); Creatinine Clr Calc Pharmacy 34.5 ml/min; Est GFR (African American) 62.8; Est GFR (Non-African American) 54.2; Potassium 4.1 mmol/L (3.5-5.1)
[2019-02-21 06:27] LABS: Albumin Globulin Ratio 0.7 (0.9-2); Bilirubin,Total 0.5 mg/dl (0.2-1); Globulin 3.7 gm/dl (2.5-4.0); Total Protein 6.3 gm/dl (6.4-8.2)
[2019-02-21 06:34] LABS: Mean Platelet Volume 10.2 fL (7.4-10.4); Platelet Count 61 K/uL (130-400)
[2019-02-21 06:35] LABS: Basophils # (auto) 0.02 K/uL (0-0.2); Basophils % (auto) 0.8 %; Echinocytes 1+; Giant Platelets 2+; Immature Granulocytes # (auto) 0.03 K/uL (0.00-0.02); Immature Granulocytes % (auto) 1.2 %; Lymphocytes # (auto) 0.63 K/uL (1.2-3.4); Monocytes # (auto) 0.13 K/uL (0.11-0.59); Monocytes % (auto) 5.2 %; Neutrophils # (auto) 1.71 K/uL (1.4-6.5); Neutrophils % (auto) 67.8 %
[2019-02-21] MEDS: predniSONE 5 MG TAB PO SCH ×2 (07:50→21:09)
[2019-02-21] MEDS: CHOLECALCIFEROL 1,000 UNITS TAB PO SCH (07:50)
[2019-02-21] MEDS: LIDOCAINE 5% 1 PATCH TD SCH (07:51)
[2019-02-21] MEDS: CARVEDILOL 6.25 MG TAB PO SCH ×2 (07:51→18:15)
[2019-02-21] MEDS: HYDROCORTISONE SOD 50 MG in SYRINGE 0 ML IV SCH ×2 (07:52→13:34)
[2019-02-21] MEDS: ASPIRIN 81 MG ECTAB PO SCH (07:52)
[2019-02-21] MEDS: FOLIC ACID 1 MG TAB PO SCH (07:53)
[2019-02-21] MEDS: DOXYCYCLINE HYCLATE 100 MG in DEXTROSE 5% 100 ML IV SCH ×2 (08:04→21:08)
[2019-02-21] MEDS: SODIUM CHLORIDE 0.9% 1000ML 1,000 ML IV SCH ×2 (09:37→19:59)
[2019-02-21] MEDS: ENOXAPARIN INJ 30 MG/0.3 ML SYR SQ SCH (09:40)
[2019-02-21 12:49] LABS: Hematocrit (blood only) 35.5 % (37-47); Hemoglobin 11.9 g/dL (12.0-16.0); Mean Corpuscular Hgb Conc 33.5 g/dL (32-36); Mean Corpuscular Volume 86.2 fL (80-100); RDW Coefficient of Variation 17.8 % (11.5-14.5); RDW Standard Deviation 56.9 fL (36.4-46.3); Red Blood Count 4.12 M/uL (4.2-5.4); White Blood Count 3.57 K/uL (4.8-10.8)
[2019-02-21 12:50] LABS: Mean Platelet Volume 10.1 fL (7.4-10.4); Platelet Count 62 K/uL (130-400)
[2019-02-21 13:11] LABS: Basophils # (auto) 0.02 K/uL (0-0.2); Basophils % (auto) 0.6 %; Echinocytes 1+; Immature Granulocytes # (auto) 0.02 K/uL (0.00-0.02); Immature Granulocytes % (auto) 0.6 %; Lymphocytes # (auto) 0.61 K/uL (1.2-3.4); Lymphocytes % (auto) 17.1 %; Monocytes # (auto) 0.29 K/uL (0.11-0.59); Monocytes % (auto) 8.1 %; Neutrophils # (auto) 2.63 K/uL (1.4-6.5); Neutrophils % (auto) 73.6 %
--- NOTE | 2019-02-21 17:55 | Hospitalist Progress Note ---
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 Pt completely asymptomatic but the only time she has had Afib was post-op from MVR/CABG. Rates in 100s- 110s -continue usual dose of Coreg, hopefully will spontaneously convert on own tonight -will start diltiazem gtt if rates >120 -Consult Cardiology -will need anticoagulation, most likely with Coumadin as pt has valvular disease -hold off on AC at this time due to thrombocytopenia (3) Hypoxia: Initially with mild hypoxia on room air, 88%, has been saturating well on 2L NC . Chest CT 02/19 showed: IMPRESSION: 1. A few right lower lobe pleural-based nodules with the largest measuring 2.3 x 1.1 cm. These are nonspecific but could represent metastatic disease. 2. Trace left pleural effusion. 3. Moderate hiatus hernia, unchanged. 4. Cardiomegaly with pulmonary hypertension. 5. Healing right medial clavicle fracture. 6. Multiple old compression fractures within the thoracic spine. Echo:left asymmetric ventricular hypertrophy, mild aortic regurgitation, mild mitral regurgitation, moderate tricuspid regurgitation, EF 55%, elevated right ventricular pressures, -will follow (4) Elevated brain natriuretic peptide (BNP) level: Echo without apparent CHF, no apparent CHF on CT chest, dry appearing labs - will gently hydrate x1 L NSS (5) Back pain: Patient with chronic back pain, acutely worsening. Now back to baseline chronc pain, much improved - no new compression fractures on Xrays, has remote/older compression fractures -Continue Vitamin D - lidocaine patches, scheduled tylenol, PT/OT - has seen Dr. Mathew in the past for compression fractures (6) Nausea, vomiting, and diarrhea: Possibly secondary to anaplasmosis Now completely resolved -continue IVFs -Zofran PRN -Stool studies sent from ER (7) CAD (coronary artery disease): Stable. Patient denies chest pain -Continue Aspirin, Coreg, but hold simvastatin for elevated LFTs, can continue CoQ10 (8) Anemia: H/H = Hgb stable at 12.2 -Continue to monitor -Continue Folic Acid - follow cbc am (9) Thrombocytopenia: Platelets lower today at 62k, was normal on prior studies from last year. ?tick borne illness -Follow Anaplasmosis labs - inclusion bodies on peripheral smear -CBC in AM -Hold aspirin and Lovenox if trends less than 50,000 (10) Arthritis: Chronic. Stable -Continue home prednisone - discontinuing dose with IV hydrocortisone due to increased BP (11) History of mitral valve repair: approximately ten years ago with some mild MR on ECHO here -follow with ECHO as outpt (12) DVT prophylaxis: enoxaparin sq Dispo-remain overnight Subjective Pt feeling much better overall. Less back pain. No further N/V/D, no abd pain. She is tolerating regular diet today. Is concerned that her BP has been elevated today-discussed the IV hydrocortisone being added for low BP yesterday. Also intermittently tachycardic. Feels less fatigued today and said she ambulated the halls. Review of Systems Review of Systems: All systems reviewed & are unremarkable except as noted in HPI & below Physical Exam Constitutional: + thin, healthy appearing, well groomed and cooperative; no acute distress Eyes: PERRL, conjunctivae normal, anicteric sclerae ENMT: external ear and nose normal, oropharynx normal Neck: trachea midline, no thyromegaly Respiratory: normal respiratory effort Auscultation: + crackles (at right base); no diminished lung sounds, no rhonchi and no wheezes Cardiovascular: Rate/Rhythm: + tachycardic and + irregularly irregular Heart Sounds: no murmur Extremities: no calf tenderness and no edema Gastrointestinal (Abdomen): normal bowel sounds, soft, nontender, no hepatosplenomegaly Musculoskeletal: Extremities: extremities normal to inspection; no cyanosis and no clubbing Skin: no rashes, warm and dry Neurologic: moves all extremities and awake; no focal motor deficits Psychiatric: A+Ox3, euthymic affect Results & Data Vital Signs (Past 12 Hours) Vital Signs Temp Pulse Resp BP Pulse Ox 02/21/19 16:33 52 L 161/93 H 02/21/19 14:53 36.6 C 102 H 16 146/94 H 94 02/21/19 08:00 36.3 C L 111 H 22 153/95 H 94 Laboratory Results 02/21/19 02/21/19 02/21/19 Range/Units 12:39 05:30 05:30 WBC 3.57 L 2.52 L (4.8-10.8) K/uL RBC 4.12 L 4.26 (4.2-5.4) M/uL Hgb 11.9 L 12.2 (12.0-16.0) g/dL Hct 35.5 L 37.1 (37-47) % MCV 86.2 87.1 (80-100) fL MCH 28.9 28.6 (25-34) pg MCHC 33.5 32.9 (32-36) g/dL RDW Std Deviation 56.9 H 57.1 H (36.4-46.3) fL RDW Coeff of Nina 17.8 H 17.8 H (11.5-14.5) % Plt Count 62 L 61 L (130-400) K/uL MPV 10.1 10.2 (7.4-10.4) fL Immature Gran % (Auto) 0.6 1.2 % Neut % (Auto) 73.6 67.8 % Lymph % (Auto) 17.1 25.0 % [place] % (Auto) 8.1 5.2 % Eos % (Auto) 0.0 0.0 % Baso % (Auto) 0.6 0.8 % Immature Gran # (Auto) 0.02 0.03 H (0.00-0.02) K/uL Neut # (Auto) 2.63 1.71 (1.4-6.5) K/uL Lymph # (Auto) 0.61 L 0.63 L (1.2-3.4) K/uL [place] # (Auto) 0.29 0.13 (0.11-0.59) K/uL Eos # (Auto) 0.00 0.00 (0-0.5) K/uL Baso # (Auto) 0.02 0.02 (0-0.2) K/uL Giant Platelets 2+ Echinocytes 1+ 1+ Sodium 135 L (136-145) mmol/L Potassium 4.1 (3.5-5.1) mmol/L Chloride 110 H (98-107) mmol/L Carbon Dioxide 17 L (21-32) mmol/L Anion Gap 8.0 (3-11) BUN 24 H (7-18) mg/dl Creatinine 0.99 (0.6-1.2) mg/dl Est Cr Clr Drug Dosing 34.5 ml/min Est GFR ( Amer) 62.8 Est GFR (Non-Af Amer) 54.2 BUN/Creatinine Ratio 24.7 H (10-20) Glucose 165 H (70-99) mg/dl Calcium 8.0 L (8.5-10.1) mg/dl Total Bilirubin 0.5 (0.2-1) mg/dl AST 64 H (15-37) U/L ALT 56 (12-78) U/L Alkaline Phosphatase 94 (45-117) U/L Total Protein 6.3 L (6.4-8.2) gm/dl Albumin 2.6 L (3.4-5.0) gm/dl Globulin 3.7 (2.5-4.0) gm/dl Albumin/Globulin Ratio 0.7 L (0.9-2) (1) CAD (coronary artery disease) Associated angina: without angina Coronary Disease-Associated Artery/Lesion type: unspecified vessel or lesion type [place] vs. transplanted heart: [place] heart Qualified Code(s): I25.10 - Atherosclerotic heart disease of [place] coronary artery without angina pectoris (2) Anemia Anemia type: unspecified type Qualified Code(s): D64.9 - Anemia, unspecified (3) Back pain Back pain laterality: midline Back pain location: thoracic back pain Chronicity: acute Qualified Code(s): M54.6 - Pain in thoracic spine (4) Atrial fibrillation Atrial fibrillation type: paroxysmal Qualified Code(s): I48.0 - Paroxysmal atrial fibrillation
[2019-02-21] MEDS ORDERED: SODIUM CHLORIDE 0.65% NA SOLN 45 ML (OCEAN) PRN (21:28)
[2019-02-21] MEDS: TRAMADOL HCL 50 MG TABLET PO PRN (23:16)
[2019-02-22] MEDS: SODIUM CHLORIDE 0.9% 1000ML 1,000 ML IV SCH ×2 (03:33→12:15)
[2019-02-22] MEDS: ACETAMINOPHEN SOLN 160 MG/5 ML BTL PO SCH ×3 (05:55→21:48)
[2019-02-22] MEDS ORDERED: Nursing to Pharmacy Communication ONE (06:00)
[2019-02-22] MEDS ORDERED: COUGH DROP (SUGAR FREE) LOZ 24 LOZ/1 BOX BUCCAL PRN (06:04)
[2019-02-22 06:26] LABS: Hematocrit (blood only) 34.1 % (37-47); Hemoglobin 11.2 g/dL (12.0-16.0); Mean Corpuscular Hgb Conc 32.8 g/dL (32-36); Mean Corpuscular Volume 86.1 fL (80-100); RDW Coefficient of Variation 17.9 % (11.5-14.5); RDW Standard Deviation 56.7 fL (36.4-46.3); Red Blood Count 3.96 M/uL (4.2-5.4); White Blood Count 5.75 K/uL (4.8-10.8)
[2019-02-22 06:48] LABS: Mean Platelet Volume 10.5 fL (7.4-10.4); Platelet Count 86 K/uL (130-400)
[2019-02-22 06:53] LABS: Albumin Level 2.3 gm/dl (3.4-5.0); BUN Creatinine Ratio 25.2 (10-20); Calcium 8.2 mg/dl (8.5-10.1); Creatinine Clr Calc Pharmacy 38.8 ml/min; Est GFR (African American) 72.4; Est GFR (Non-African American) 62.5
[2019-02-22 06:56] LABS: Albumin Globulin Ratio 0.6 (0.9-2); Bilirubin,Total 0.3 mg/dl (0.2-1); Globulin 3.7 gm/dl (2.5-4.0)
[2019-02-22 07:12] LABS: Basophils # (auto) 0.01 K/uL (0-0.2); Basophils % (auto) 0.2 %; Echinocytes 1+; Giant Platelets 1+; Immature Granulocytes # (auto) 0.03 K/uL (0.00-0.02); Immature Granulocytes % (auto) 0.5 %; Lymphocytes # (auto) 0.91 K/uL (1.2-3.4); Lymphocytes % (auto) 15.8 %; Monocytes # (auto) 0.52 K/uL (0.11-0.59); Neutrophils # (auto) 4.28 K/uL (1.4-6.5); Neutrophils % (auto) 74.5 %
[2019-02-22] MEDS: FOLIC ACID 1 MG TAB PO SCH (10:44)
[2019-02-22] MEDS: CHOLECALCIFEROL 1,000 UNITS TAB PO SCH (10:44)
[2019-02-22] MEDS: ASPIRIN 81 MG ECTAB PO SCH (10:44)
[2019-02-22] MEDS: LIDOCAINE 5% 1 PATCH TD SCH (10:45)
[2019-02-22] MEDS: DOXYCYCLINE HYCLATE 100 MG in DEXTROSE 5% 100 ML IV SCH ×2 (10:50→21:10)
--- NOTE | 2019-02-22 11:26 | Cardiology Consultation ---
Date of Consultation February 22, 2019 Assessment & Plan (1) Atrial fibrillation: Patient has no symptoms referable to the arrhythmia. It is unclear whether she has had occult atrial fibrillation in the past. She does have some mildly elevated rates and I think at this point our focus will be on rate control and initiation of anticoagulation. I think we can double her carvedilol. Her platelet count appears to be improving and we can likely start Eliquis this evening. Given her age in history of valvular heart disease it is not surprising that she has atrial fibrillation. Three possible that her arrhythmia was precipitated by her acute illness. I suspect she will convert on her own within the next 24 hours, but may require a cardioversion at some point if she has persistent atrial fibrillation. Alternatively, given her absence of symptoms she could be left in atrial fibrillation and a rate control strategy adopted. (2) CAD (coronary artery disease): He had both surgical and percutaneous revascularization. Not all of her records are available, but she does report some complication related to her bypass surgery. She has difficulty recalling any symptoms associated with her interventions either before or afterwards. At this point she does not appear to have symptoms consistent with coronary insufficiency or angina. She will be maintained on her current secondary prevention which includes a daily aspirin, beta-blockade and simvastatin. (3) History of mitral valve repair: Currently not having symptoms related to valvular heart disease. The valve function appears adequate on echocardiography. Given the nature of her valvular heart disease in the absence of significant mitral stenosis, it still appears reasonable to use the newer agents for anticoagulation rather than restrict her to warfarin use. History of Present Illness Reason for Consultation: Atrial fibrillation Requesting Physician: Mansi Attending Physician: Gema Nazario MD History of Present Illness Patient is a 79-year-old woman with a history of valvular and coronary disease who was admitted to [facility] [address] with symptoms of a tick-borne illness. Patient was known to have had several tick bites at home and did suffer with both arthralgias and fatigue recently. Additional symptoms including back pain, nausea and vomiting of a mucousy material. She was admitte d for antibiotic therapy and stress dose steroids for an element of hypotension. During her hospitalization she was noted to transition from normal sinus to atrial fibrillation. This was primarily discovered due to an elevated heart rate. The patient states that she was not aware of any palpitation or elevated heart rate. Despite currently being in atrial fibrillation she continues to be asymp tomatic. She does describe rare and fleeting episodes of palpitations previously, but no sustained episodes of irregularity in her heartbeat. She is an active individual who was accustomed outdoor work. She states that she will get fatigued on occasion need to rest for a few minutes, but did not describe symptoms of exertional chest discomfort or limiting dyspnea. She generally does not have dizziness or lightheadedness. She cannot recall an episode of syncope. Patient has had several coronary interventions and also a mitral valve repair. He states that after her heart surgery she did feel slightly better for period of time but had some difficulty characterizing that statement. She cannot recall symptoms of chest discomfort or angina previously. She cannot recall feeling much better after percutaneous intervention. Allergies Allergy/AdvReac Type Severity Reaction Status Date / Time lorazepam AdvReac Severe DELIRIUM Unverified 02/19/19 18:06 promethazine AdvReac Severe DELIRIUM Unverified 02/19/19 18:06 Home Medications Home Medications Medication Instructions Recorded Confirmed Type aspirin 81 mg PO DAILY 02/19/19 02/19/19 History cholecalciferol (vitamin D3) 4,000 unit PO DAILY 02/19/19 02/21/19 History [Vitamin D3] folic acid 1 mg PO DAILY 02/19/19 02/19/19 History prednisone 5 mg PO QPM 02/19/19 02/21/19 History ranitidine HCl 150 mg PO BID PRN 02/19/19 02/19/19 History simvastatin 40 mg PO PM 02/19/19 02/19/19 History tramadol 50 mg PO BID PRN 02/19/19 02/19/19 History zoledronic ccel-enmxqipw-qylle 5 mg IV YEARLY 02/19/19 02/19/19 History [Reclast] apixaban [Eliquis] 5 mg PO BID 30 Days #60 tab 02/23/19 Rx carvedilol 6.25 mg PO BID 30 Days #60 tab 02/23/19 Rx Patient History Medical History Compression fracture (Chronic) Anemia Arthritis Breast cancer CAD (coronary artery disease) s/p CABG with stenting Surgical History History of coronary artery bypass graft History of coronary artery stent placement History of mastectomy History of mitral valve replacement History of shoulder surgery Family History Other Family history non-contributory Social History Preferred Language: [place] Communication Ability: Effective Neurodiagnostic Tech Required: No Beliefs That Will Affect Care: None Current Living Situation: Alone Other Information That Helps Us Care for You: No Feels Safe at Home: Yes Safety Concerns: Feels Safe At This Time Smoking Status: Never smoker Hx Alcohol Use: No Hx Substance Use: No Review of Systems Review of Systems: All systems reviewed & are unremarkable except as noted in HPI & below Physical Exam Physical Exam: She is alert and oriented x3. Mood affect appear normal. She answered all questions appropriately. HEENT: Sclerae are anicteric. Pupils are equal and reactive to light and accommodation. Extraocular movements were intact. Neuro: Cranial nerves intact Neck: Examination of the submandibular region did not reveal any significant lymphadenopathy. Carotids are palpable bilaterally and free of bruits on auscultation. There was no evidence of jugular venous distention. The thyroid was not enlarged. Lungs: Some reduced breath sounds in the left base. There are no rales wheezes or rhonchi. She has normal respiratory effort without use of accessory muscles. There is normal pulmonary excursion. Cardiac: The rhythm was irregular. S1 and S2 were normal. There are no murmurs on examination. The PMI was not markedly displaced on palpation. Chest: Well-healed sternotomy scar Abdomen: The abdomen was soft and nontender. Extremities: Patient has bilateral radial pulses that are equal in intensity. There is no evidence cyanosis or clubbing. There was no evidence of significant peripheral edema bilaterally. Skin: There are no rashes noted on examination today. Results & Data Vital Signs (Past 12 Hours) Vital Signs Temp Pulse Resp BP Pulse Ox 02/22/19 07:10 36.6 C 81 19 145/101 H 94 02/22/19 04:07 36.5 C 108 H 20 146/96 H 95 02/21/19 23:50 36.6 C 100 H 17 159/89 H 94 Laboratory Results Abnormal Lab Results 06/06/19 06/07/19 06/07/19 12:39 05:55 05:55 WBC 3.57 L 5.75 RBC 4.12 L 3.96 L Hgb 11.9 L 11.2 L Hct 35.5 L 34.1 L MCV 86.2 86.1 MCH 28.9 28.3 MCHC 33.5 32.8 RDW Std Deviation 56.9 H 56.7 H RDW Coeff of Nina 17.8 H 17.9 H Plt Count 62 L 86 L MPV 10.1 10.5 H Immature Gran % (Auto) 0.6 0.5 Neut % (Auto) 73.6 74.5 Lymph % (Auto) 17.1 15.8 [place] % (Auto) 8.1 9.0 Eos % (Auto) 0.0 0.0 Baso % (Auto) 0.6 0.2 Immature Gran # (Auto) 0.02 0.03 H Neut # (Auto) 2.63 4.28 Lymph # (Auto) 0.61 L 0.91 L [place] # (Auto) 0.29 0.52 Eos # (Auto) 0.00 0.00 Baso # (Auto) 0.02 0.01 Giant Platelets 1+ Echinocytes 1+ 1+ Sodium 138 Potassium 4.0 Chloride 113 H Carbon Dioxide 18 L Anion Gap 7.0 BUN 22 H Creatinine 0.88 Est Cr Clr Drug Dosing 38.8 Est GFR ( Amer) 72.4 Est GFR (Non-Af Amer) 62.5 BUN/Creatinine Ratio 25.2 H Glucose 108 H Calcium 8.2 L Total Bilirubin 0.3 AST 45 H ALT 45 Alkaline Phosphatase 81 Total Protein 6.0 L Albumin 2.3 L Globulin 3.7 Albumin/Globulin Ratio 0.6 L Diagnostic Findings Echocardiogram was performed on 02/20/2019: Preserved LV systolic function. Regurgitation of the aortic and mitral valves. Mitral annular calcification. ECG Additional Comments: Atrial fibrillation with controlled ventricular rate and nonspecific ST and T-wave changes (1) CAD (coronary artery disease) Associated angina: without angina Coronary Disease-Associated Artery/Lesion type: unspecified vessel or lesion type [place] vs. transplanted heart: [place] heart Qualified Code(s): I25.10 - Atherosclerotic heart disease of [place] coronary artery without angina pectoris (2) Atrial fibrillation Atrial fibrillation type: paroxysmal Qualified Code(s): I48.0 - Paroxysmal atrial fibrillation
[2019-02-22] MEDS: CARVEDILOL 6.25 MG TAB PO SCH ×3 (11:30→21:06)
[2019-02-22] MEDS: ENOXAPARIN INJ 30 MG/0.3 ML SYR SQ SCH (12:07)
--- NOTE | 2019-02-22 13:30 | Hospitalist Progress Note ---
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 Pt completely asymptomatic but the only time she has had Afib was post-op from MVR/CABG. Rates in 90s now but were up to 120s-140s overnight -Cardio consult appreciated -increase Coreg to 6.25mg bid -still hoping she may spontaneously convert, if not, Cardio said could possibly DCCV in the future -Now the platelets are improved, will start her on Eliquis this evening 5 mg p.o. twice daily -We will discontinue aspirin at recommendation of drawbridge operator now that she is on Eliquis (3) Hypoxia: Initially with mild hypoxia on room air, 88%, has been saturating well on 2L NC . Chest CT 02/19 showed: IMPRESSION: 1. A few right lower lobe pleural-based nodules with the largest measuring 2.3 x 1.1 cm. These are nonspecific but could represent metastatic disease. 2. Trace left pleural effusion. 3. Moderate hiatus hernia, unchanged. 4. Cardiomegaly with pulmonary hypertension. 5. Healing right medial clavicle fracture. 6. Multiple old compression fractures within the thoracic spine. Echo:left asymmetric ventricular hypertrophy, mild aortic regurgitation, mild mitral regurgitation, moderate tricuspid regurgitation, EF 55%, elevated right ventricular pressures, Is now completely weaned off oxygen and doing very well (4) Elevated brain natriuretic peptide (BNP) level: Echo without apparent CHF, no apparent CHF on CT chest, dry appearing labs initially and therefore has been on IV fluids I do not think that she has CHF (5) Back pain: Patient with chronic back pain, acutely worsened by the anaplasmosis- improved today but still present Also has old compression fractures - no new compression fractures on Xrays -Continue Vitamin D - continue lidocaine patches, scheduled tylenol, PT/OT - has seen Dr. Mathew in the past for compression fractures (6) Nausea, vomiting, and diarrhea: Possibly secondary to anaplasmosis Now completely resolved Discontinue IV fluids today -Stool studies sent from ER (7) CAD (coronary artery disease): Stable. Patient denies chest pain -Continue Coreg at increased dose 6.25 mill grams p.o. twice daily, but hold simvastatin for elevated LFTs, can continue CoQ10 -We will be discontinuing aspirin at recommendation of drawbridge operator as above after starting Eliquis (8) Anemia: H/H = Hgb slightly decreased at 11.2-likely dilutional -Continue to monitor -Continue Folic Acid - follow cbc am (9) Thrombocytopenia: Platelets nesha at 61k, was normal on prior studies from last year. Ak nava secondary to tick borne illness Platelets improved today to 86 -Follow Anaplasmosis labs - inclusion bodies on peripheral smear -CBC in AM (10) Arthritis: Chronic. Stable -Continue home prednisone 5 mg daily in the evenings Initially received stress dosed steroids with IV hydrocortisone for low blood pressures, but then discontinued this when blood pressures became more elevated and was in rapid A. fib (11) History of mitral valve repair: approximately ten years ago with some mild MR on ECHO here -follow with ECHO as outpt (12) Metabolic acidosis: Bicarbonate remains mildly low but improved from yesterday at 18, non- anion gap She previously did have diarrhea and this may be bicarbonate and GI losses, but unclear as she has not had any diarrhea now in 2 to 3 days -Okay to DC IV fluids now, is tolerating p.o. quite well -Follow BMP in the morning (13) DVT prophylaxis: Discontinue SQ Lovenox and starting Eliquis tonight Dispo-remain overnight on telemetry, if A. fib rates are controlled and feeling well otherwise, blood counts continue to improve, could discharge to home on Monday Eliquis Joseph is going to be $75 for 1 month supply and if she uses her 3-month pharmacy would go down to $150 for 3 months Coupon given for first month free by case management Physical Exam Constitutional: + thin, healthy appearing, well groomed and cooperative; no acute distress Eyes: PERRL, conjunctivae normal, anicteric sclerae ENMT: external ear and nose normal, oropharynx normal Neck: trachea midline, no thyromegaly Respiratory: normal respiratory effort Auscultation: + crackles (at right base); no diminished lung sounds, no rhonchi and no wheezes Cardiovascular: Rate/Rhythm: + tachycardic and + irregularly irregular Heart Sounds: no murmur Extremities: no calf tenderness and no edema Gastrointestinal (Abdomen): normal bowel sounds, soft, nontender, no hepatosplenomegaly Musculoskeletal: Extremities: extremities normal to inspection; no cyanosis and no clubbing Skin: no rashes, warm and dry Neurologic: moves all extremities and awake; no focal motor deficits Psychiatric: A+Ox3, euthymic affect Results & Data Vital Signs (Past 12 Hours) Vital Signs Temp Pulse Resp BP Pulse Ox 02/22/19 12:00 36.4 C L 111 H 20 142/91 H 95 02/22/19 07:10 36.6 C 81 19 145/101 H 94 02/22/19 04:07 36.5 C 108 H 20 146/96 H 95 (1) Atrial fibrillation Atrial fibrillation type: paroxysmal Qualified Code(s): I48.0 - Paroxysmal atrial fibrillation (2) Back pain Back pain location: thoracic back pain Chronicity: acute Back pain laterality: midline Qualified Code(s): M54.6 - Pain in thoracic spine (3) CAD (coronary artery disease) Coronary Disease-Associated Artery/Lesion type: unspecified vessel or lesion type [place] vs. transplanted heart: [place] heart Associated angina: without angina Qualified Code(s): I25.10 - Atherosclerotic heart disease of [place] coronary artery without angina pectoris (4) Anemia Anemia type: unspecified type Qualified Code(s): D64.9 - Anemia, unspecified
[2019-02-22 17:36] LABS: Anaplasma phagocytophila IgM <1:20 (<1:20)
[2019-02-22] MEDS: predniSONE 5 MG TAB PO SCH (21:05)
[2019-02-22] MEDS: APIXABAN 5 MG TABLET PO SCH (21:05)
--- NOTE | 2019-02-22 23:40 | Emergency Department Note ---
Entered by Cynthia Tam acting as a scribe for History of Present Illness General Chief complaint: Back Injury/Pain Stated complaint: BACKACHE, VOMITING, NAUSEA Time Seen by Provider: 02/19/19 18:01 Source: patient and family (daughter) History of Present Illness Onset (ago): day(s) 4 Location: back Severity: similar to prior episodes Pain Consistency: + other (persistent ) Maximum Pain Intensity: 10 Associated symptoms: + nausea/vomiting, + weakness and + other (positive diarrhea; negative cold symptoms); no chest pain, no cough and no shortness of breath The patient is a 79 year old female who presents to the Emergency Room with complaints of persistent back pain that began 4 days prior to arrival. The patient's daughter states that the patient has a history of compression fractures, and states that this is similar to prior to arrival. Per the patient's daughter, the patient had persistent vomiting and diarrhea today. She started having nausea and dry heaving several days ago. The patient's daughter states that the patient was vomiting up "thick mucus". She has had a diminished appetite and has not eaten anything for 2 days according to the daughter. The patient states that she has felt weak today. The patient denies chest pain, shortness of breath, cough, and cold symptoms. The patient denies medication changes and being around anyone else sick. The patient's daughter states that the patient previously had a bypass, but states that this is not functioning. The patient states that she had Lyme last summer, and states that she was recently bit by a tic behind her left knee. She states that she removed this tic 5 days ago and believes she got it that same day. No recent trauma or other change in activity. Home Medications Home Medications Medication Instructions Recorded Confirmed Type aspirin 81 mg PO DAILY 02/19/19 02/19/19 History carvedilol [Coreg] 3.125 mg PO BID 02/19/19 02/19/19 History cholecalciferol (vitamin D3) 4,000 unit PO DAILY 02/19/19 02/21/19 History [Vitamin D3] folic acid 1 mg PO DAILY 02/19/19 02/19/19 History prednisone 5 mg PO QPM 02/19/19 02/21/19 History ranitidine HCl 150 mg PO BID PRN 02/19/19 02/19/19 History simvastatin 40 mg PO PM 02/19/19 02/19/19 History tramadol 50 mg PO BID PRN 02/19/19 02/19/19 History zoledronic ivrx-[id number] 5 mg IV YEARLY 02/19/19 02/19/19 History [Reclast] Allergies Allergy/AdvReac Type Severity Reaction Status Date / Time lorazepam AdvReac Severe DELIRIUM Unverified 02/19/19 18:06 promethazine AdvReac Severe DELIRIUM Unverified 02/19/19 18:06 Past Med/Surg History Medical History Compression fracture (Chronic) Anemia Arthritis Breast cancer CAD (coronary artery disease) s/p CABG with stenting Surgical History History of coronary artery bypass graft History of coronary artery stent placement History of mastectomy History of mitral valve replacement History of shoulder surgery Family History Other Family history non-contributory Social History Preferred Language: Indonesian Communication Ability: Effective Sleeping Car Service Attendant Required: No Beliefs That Will Affect Care: None Current Living Situation: Alone Other Information That Helps Us Care for You: No Feels Safe at Home: Yes Safety Concerns: Feels Safe At This Time Smoking Status: Never smoker Hx Alcohol Use: No Hx Substance Use: No Review of Systems See HPI for pertinent positives & negatives. and A total of 10 systems reviewed and were otherwise negative Physical Exam Vital Signs Vital Signs - 24 hr 02/19/19 17:46 02/19/19 17:55 02/19/19 20:08 Temperature 98.8 F Temperature Source Oral Sepsis Recent Fever Within 48 Hours No Sepsis New/Unexplained Change in Mental Status No Sepsis Action Taken by Nursing No Action Required Pulse Rate 91 H Pulse Rate [Finger] 92 H 87 Respiratory Rate 16 20 20 Blood Pressure 120/70 Blood Pressure [Right Arm] 129/64 Blood Pressure Mean 86 Blood Pressure Mean [Right Arm] 85 Pulse Oximetry 93 90 92 Oxygen Delivery Method Room Air Room Air Room Air 02/19/19 20:52 02/19/19 21:58 Temperature Temperature Source Sepsis Recent Fever Within 48 Hours Sepsis New/Unexplained Change in Mental Status Sepsis Action Taken by Nursing Pulse Rate Pulse Rate [Finger] 93 H 84 Respiratory Rate 20 20 Blood Pressure Blood Pressure [Right Arm] 141/79 H Blood Pressure Mean Blood Pressure Mean [Right Arm] 99 Pulse Oximetry 98 96 Oxygen Delivery Method Room Air Room Air GENERAL: alert, ill-appearing, no distress, non-toxic EYE EXAM: normal conjunctiva, PERRL and EOM's grossly intact OROPHARYNX: no exudate, no erythema, lips, buccal mucosa, and tongue normal and mucous membranes are mildly dry NECK: supple, no nuchal rigidity, no adenopathy, non-tender LUNGS: Clear to auscultation. No wheezes, rhonchi, or rales. Normal chest wall mechanics. On room air during exam, dropped to 88%. HEART: no murmurs, S1 normal and S2 normal ABDOMEN: abdomen soft, non-tender, normo-active bowel sounds, no masses, no rebound or guarding. BACK: Back is symmetrical on inspection and there is no deformity, no midline tenderness, no CVA tenderness. SKIN: no rashes and no bruising UPPER EXTREMITIES: upper extremities are grossly normal. FROM b/l, nml pulses b/l. LOWER EXTREMITIES: No pitting edema. There is a subcentimeter maculopapular erythematous lesion to the posterior left knee noted consistent with recent reported insect bite. Nml pulses b/l. NEURO EXAM: Normal sensorium, cranial nerves II-XII grossly intact, normal speech, no gross weakness of arms, no gross weakness of legs. Course 1808: The patient was evaluated in room B6, and a complete history and physical examination were performed. 2043: I checked on the patient and updated her. 2116: The lab called and said the patient's CBC looks like the patient may have anaplasmosis. 2155: Upon reevaluation, the patient is starting to feel better. I discussed her initial hypoxia, her elevated BNP, and her likely anaplasmosis. The patient agrees with the plan. 2252: I discussed the case with Dr. Robles-[facility] Hospitalist who accepts the patient for further evaluation. Administered Medications Acetaminophen (Tylenol) 1,000 mg PO Q8H [facility] Stop: 03/23/19 05:59 Last Admin: 02/22/19 21:48 Dose: 1,000 mg Documented by: [id number] Admin: 02/22/19 14:45 Dose: 1,000 mg Documented by: [id number] Admin: 02/22/19 05:55 Dose: 1,000 mg Documented by: [id number] Admin: 02/21/19 21:16 Dose: 1,000 mg Documented by: [id number] Admin: 02/21/19 13:34 Dose: 1,000 mg Documented by: [id number] Admin: 02/21/19 05:47 Dose: 1,000 mg Documented by: [id number] Apixaban (Eliquis) 5 mg PO BID [facility] Stop: 03/24/19 20:59 Last Admin: 02/22/19 21:05 Dose: 5 mg Documented by: [id number] Carvedilol (Coreg) 6.25 mg PO BID [facility] Stop: 03/24/19 10:59 Last Admin: 02/22/19 21:06 Dose: 6.25 mg Documented by: [id number] Admin: 02/22/19 11:30 Dose: 6.25 mg Documented by: [id number] Folic Acid (Folvite) 1 mg PO DAILY [facility] Stop: 03/22/19 08:59 Last Admin: 02/22/19 10:44 Dose: 1 mg Documented by: [id number] Admin: 02/21/19 07:53 Dose: 1 mg Documented by: [id number] Admin: 02/20/19 09:38 Dose: 1 mg Documented by: [id number] Doxycycline Hyclate 100 mg/ (Dextrose) 110 mls @ 50 mls/hr IV Q12H [facility] Stop: 03/06/19 08:59 Last Admin: 02/22/19 21:10 Dose: 50 mls/hr Documented by: [id number] Infusion: 02/22/19 13:02 Dose: 0 mls/hr Documented by: [id number] Admin: 02/22/19 10:50 Dose: 50 mls/hr Documented by: [id number] Infusion: 02/21/19 23:20 Dose: 0 mls/hr Documented by: [id number] Admin: 02/21/19 21:08 Dose: 50 mls/hr Documented by: [id number] Infusion: 02/21/19 10:19 Dose: 0 mls/hr Documented by: [id number] Admin: 02/21/19 08:04 Dose: 50 mls/hr Documented by: [id number] Infusion: 02/21/19 00:22 Dose: 0 mls/hr Documented by: [id number] Admin: 02/20/19 22:10 Dose: 50 mls/hr Documented by: [id number] Infusion: 02/20/19 11:53 Dose: 0 mls/hr Documented by: [id number] Admin: 02/20/19 09:38 Dose: 50 mls/hr Documented by: [id number] Ioversol (Optiray 320 100ml) 90 ml IV ONCE PRN PRN Reason: Interaction Checking Stop: 02/23/19 21:28 Last Admin: 02/19/19 21:30 Dose: 90 ml Documented by: [id number] Lidocaine (Lidoderm 5%) 1 patch TD QAM [facility] Stop: 03/22/19 18:14 Last Admin: 02/22/19 10:45 Dose: 1 patch Documented by: [id number] Admin: 02/21/19 07:51 Dose: Not Given Documented by: [id number] Admin: 02/20/19 19:44 Dose: Not Given Documented by: [id number] Miscellaneous (Remove Lidoderm Patch) 1 ea N/A DAILY@2100 [facility] Stop: 03/22/19 20:59 Last Admin: 02/22/19 21:06 Dose: 1 ea Documented by: [id number] Admin: 02/21/19 20:40 Dose: Not Given Documented by: [id number] Admin: 02/20/19 22:07 Dose: Not Given Documented by: [id number] Ondansetron HCl (Zofran) 4 mg IV Q6H PRN PRN Reason: Nausea Stop: 03/22/19 00:24 Last Admin: 02/20/19 09:44 Dose: 4 mg Documented by: [id number] Admin: 02/20/19 02:57 Dose: 4 mg Documented by: [id number] Prednisone (Prednisone) 5 mg PO HS [facility] Stop: 03/23/19 20:59 Last Admin: 02/22/19 21:05 Dose: 5 mg Documented by: [id number] Admin: 02/21/19 21:09 Dose: 5 mg Documented by: [id number] Ranitidine HCl (Zantac) 150 mg PO BID [facility] Stop: 03/22/19 08:59 Last Admin: 02/22/19 21:05 Dose: 150 mg Documented by: [id number] Admin: 02/22/19 10:44 Dose: 150 mg Documented by: [id number] Admin: 02/21/19 20:35 Dose: Not Given Documented by: [id number] Admin: 02/21/19 07:52 Dose: 150 mg Documented by: [id number] Admin: 02/20/19 22:03 Dose: 150 mg Documented by: [id number] Admin: 02/20/19 09:38 Dose: 150 mg Documented by: [id number] Sodium Chloride (Escobares Nasal) 1 sprays NA PRN PRN PRN Reason: Dryness Stop: 03/23/19 21:27 Last Admin: 02/21/19 23:14 Dose: 1 sprays Documented by: [id number] Tramadol HCl (Ultram) 50 mg PO BID PRN PRN Reason: Pain Stop: 03/22/19 00:24 Last Admin: 02/21/19 23:16 Dose: 50 mg Documented by: [id number] Admin: 02/20/19 05:33 Dose: 50 mg Documented by: [id number] Vitamin D (Vitamin D3) 2,000 units PO DAILY [facility] Stop: 03/22/19 08:59 Last Admin: 02/22/19 10:44 Dose: 2,000 units Documented by: [id number] Admin: 02/21/19 07:50 Dose: 2,000 units Documented by: [id number] Admin: 02/20/19 09:39 Dose: 2,000 units Documented by: [id number] Discontinued Medications Acetaminophen (Tylenol) 650 mg PO Q4H PRN PRN Reason: pain/fever Stop: 03/22/19 00:24 Last Admin: 02/20/19 09:44 Dose: 650 mg Documented by: [id number] Acetaminophen (Tylenol) 1,000 mg PO Q8H [facility] Stop: 03/22/19 18:29 Last Admin: 02/20/19 19:53 Dose: 1,000 mg Documented by: [id number] Aspirin (Ecotrin Ectab) 81 mg PO DAILY [facility] Stop: 03/22/19 08:59 Last Admin: 02/22/19 10:44 Dose: 81 mg Documented by: [id number] Admin: 02/21/19 07:52 Dose: 81 mg Documented by: [id number] Admin: 02/20/19 09:38 Dose: 81 mg Documented by: [id number] Carvedilol (Coreg) 3.125 mg PO BID [facility] Stop: 03/22/19 08:59 Last Admin: 02/22/19 12:16 Dose: Not Given Documented by: [id number] Admin: 02/21/19 18:15 Dose: 3.125 mg Documented by: [id number] Admin: 02/21/19 07:51 Dose: 3.125 mg Documented by: [id number] Admin: 02/20/19 22:00 Dose: 3.125 mg Documented by: [id number] Admin: 02/20/19 09:38 Dose: 3.125 mg Documented by: [id number] Doxycycline Hyclate (Vibramycin) 100 mg PO NOW STA Stop: 02/19/19 21:36 Last Admin: 02/19/19 21:43 Dose: 100 mg Documented by: [id number] Enoxaparin Sodium (Lovenox) 30 mg SQ QAM [facility] Stop: 03/22/19 08:59 Last Admin: 02/22/19 12:07 Dose: 30 mg Documented by: [id number] Admin: 02/21/19 09:40 Dose: 30 mg Documented by: [id number] Admin: 02/20/19 09:39 Dose: 30 mg Documented by: [id number] Famotidine (Pepcid 20mg Iv Push) 20 mg IV ONE STA Stop: 02/19/19 21:36 Last Admin: 02/19/19 21:43 Dose: 20 mg Documented by: [id number] Sodium Chloride (Nss 1000ml) 1,000 mls @ 200 mls/hr IV .Q5H [facility] Stop: 03/21/19 18:29 Last Admin: 02/20/19 09:30 Dose: Not Given Documented by: [id number] Infusion: 02/20/19 00:03 Dose: 0 mls/hr Documented by: [id number] Admin: 02/19/19 19:56 Dose: 200 mls/hr Documented by: [id number] Sodium Chloride (Nss 1000ml) 1,000 mls @ 100 mls/hr IV .Q10H [facility] Stop: 02/20/19 20:29 Last Infusion: 02/21/19 00:21 Dose: 0 mls/hr Documented by: [id number] Admin: 02/20/19 11:51 Dose: 80 mls/hr Documented by: [id number] Hydrocortisone Sodium (Succinate 50 mg/ Syringe) 1 mls @ 4 mls/min IV TID [facility] Stop: 03/22/19 20:59 Last Admin: 02/21/19 13:34 Dose: 4 mls/min Documented by: [id number] Admin: 02/21/19 07:52 Dose: 4 mls/min Documented by: [id number] Admin: 02/20/19 22:04 Dose: 4 mls/min Documented by: [id number] Sodium Chloride (Nss 1000ml) 1,000 mls @ 100 mls/hr IV .Q10H [facility] Stop: 03/23/19 09:29 Last Infusion: 02/22/19 15:44 Dose: 0 mls/hr Documented by: [id number] Admin: 02/22/19 12:15 Dose: 100 mls/hr Documented by: [id number] Infusion: 02/22/19 12:06 Dose: 0 mls/hr Documented by: [id number] Admin: 02/22/19 03:33 Dose: 125 mls/hr Documented by: [id number] Infusion: 02/22/19 03:33 Dose: 125 mls/hr Documented by: [id number] Admin: 02/21/19 19:59 Dose: 125 mls/hr Documented by: [id number] Infusion: 02/21/19 17:37 Dose: 125 mls/hr Documented by: [id number] Admin: 02/21/19 09:37 Dose: 125 mls/hr Documented by: [id number] Miscellaneous Information (Nursing To Pharmacy Communication) 1 ea N/A ONE ONE Stop: 02/22/19 06:01 Last Admin: 02/22/19 06:48 Dose: Not Given Documented by: [id number] Ondansetron HCl (Zofran) 4 mg IV NOW STA Stop: 02/19/19 18:23 Last Admin: 02/19/19 20:08 Dose: 4 mg Documented by: [id number] Prednisone (Prednisone) 5 mg PO BID [facility] Stop: 03/22/19 08:59 Last Admin: 02/21/19 07:50 Dose: 5 mg Documented by: [id number] Admin: 02/20/19 21:59 Dose: 5 mg Documented by: [id number] Admin: 02/20/19 09:39 Dose: 5 mg Documented by: [id number] Simvastatin (Zocor) 40 mg PO PM [facility] Stop: 03/22/19 20:59 Last Admin: 02/20/19 22:03 Dose: 40 mg Documented by: [id number] Medical Decision Making Differential Diagnosis Differential diagnosis: Etiologies such as gastroenteritis, food borne illness, infections, appendicitis, diverticulitis, inflammatory bowel disease, obstruction, GI bleed, biliary pathology, as well as others were entertained. Medical Records Attestation: I reviewed the patient's medical records. Home Medications Current Medication List: was personally reviewed by me Laboratory Data Attestation: I reviewed the patient's lab results. Result diagrams: 02/22/19 05:55 02/22/19 05:55 Lab Results 02/19/19 02/19/19 02/19/19 Range/Units 19:32 19:32 19:47 WBC 4.25 L (4.8-10.8) K/uL RBC 4.68 (4.2-5.4) M/uL Hgb 13.5 (12.0-16.0) g/dL Hct 40.9 (37-47) % MCV 87.4 (80-100) fL MCH 28.8 (25-34) pg MCHC 33.0 (32-36) g/dL RDW Std Deviation 57.4 H (36.4-46.3) fL RDW Coeff of Nina 18.0 H (11.5-14.5) % Plt Count 88 L (130-400) K/uL MPV 10.6 H (7.4-10.4) fL Immature Gran % (Auto) 1.9 % Neut % (Auto) 88.8 % Lymph % (Auto) 8.2 % Phillips % (Auto) 0.9 % Eos % (Auto) 0.0 % Baso % (Auto) 0.2 % Immature Gran # (Auto) 0.08 H (0.00-0.02) K/uL Neut # (Auto) 3.77 (1.4-6.5) K/uL Lymph # (Auto) 0.35 L (1.2-3.4) K/uL Phillips # (Auto) 0.04 L (0.11-0.59) K/uL Eos # (Auto) 0.00 (0-0.5) K/uL Baso # (Auto) 0.01 (0-0.2) K/uL Blood Smear Review Platelet Estimate Decreased L (Normal) Giant Platelets 1+ Echinocytes 1+ Sodium 133 L (136-145) mmol/L Potassium 4.2 (3.5-5.1) mmol/L Chloride 102 (98-107) mmol/L Carbon Dioxide 22 (21-32) mmol/L Anion Gap 9.0 (3-11) BUN 29 H (7-18) mg/dl Creatinine 1.03 (0.6-1.2) mg/dl Est Cr Clr Drug Dosing Not Reportable Est GFR ( Amer) 59.9 Est GFR (Non-Af Amer) 51.7 BUN/Creatinine Ratio 28.5 H (10-20) Glucose 90 (70-99) mg/dl POC Lactic Acid Malachi 2.02 H (0.90-1.70) mmol/L Calcium 8.5 (8.5-10.1) mg/dl Phosphorus 3.4 (2.5-4.9) mg/dl Magnesium 2.2 (1.8-2.4) mg/dl Total Bilirubin 0.8 (0.2-1) mg/dl AST 87 H (15-37) U/L ALT 58 (12-78) U/L Alkaline Phosphatase 88 (45-117) U/L Troponin I < 0.015 (0-0.045) ng/ml NT-Pro-B Natriuret Pep 4380 H (0-1800) pg/ml Total Protein 7.1 (6.4-8.2) gm/dl Albumin 2.9 L (3.4-5.0) gm/dl Globulin 4.2 H (2.5-4.0) gm/dl Albumin/Globulin Ratio 0.7 L (0.9-2) Lipase 175 (73-393) U/L TSH 0.726 (0.300-4.500) uIu/ml A. phagocytophilum IgG (<1:64) A. phagocytophilum IgM (<1:20) A.phagocytophilum Intrp A. phagocytophilum Cmmt Lyme Disease IgG Ab (Negative) Lyme Disease IgM Ab (Negative) 02/19/19 02/19/19 Range/Units 21:56 21:56 WBC (4.8-10.8) K/uL RBC (4.2-5.4) M/uL Hgb (12.0-16.0) g/dL Hct (37-47) % MCV (80-100) fL MCH (25-34) pg MCHC (32-36) g/dL RDW Std Deviation (36.4-46.3) fL RDW Coeff of Nina (11.5-14.5) % Plt Count (130-400) K/uL MPV (7.4-10.4) fL Immature Gran % (Auto) % Neut % (Auto) % Lymph % (Auto) % Phillips % (Auto) % Eos % (Auto) % Baso % (Auto) % Immature Gran # (Auto) (0.00-0.02) K/uL Neut # (Auto) (1.4-6.5) K/uL Lymph # (Auto) (1.2-3.4) K/uL Phillips # (Auto) (0.11-0.59) K/uL Eos # (Auto) (0-0.5) K/uL Baso # (Auto) (0-0.2) K/uL Blood Smear Review Platelet Estimate (Normal) Giant Platelets Echinocytes Sodium (136-145) mmol/L Potassium (3.5-5.1) mmol/L Chloride (98-107) mmol/L Carbon Dioxide (21-32) mmol/L Anion Gap (3-11) BUN (7-18) mg/dl Creatinine (0.6-1.2) mg/dl Est Cr Clr Drug Dosing Est GFR ( Amer) Est GFR (Non-Af Amer) BUN/Creatinine Ratio (10-20) Glucose (70-99) mg/dl POC Lactic Acid Malachi (0.90-1.70) mmol/L Calcium (8.5-10.1) mg/dl Phosphorus (2.5-4.9) mg/dl Magnesium (1.8-2.4) mg/dl Total Bilirubin (0.2-1) mg/dl AST (15-37) U/L ALT (12-78) U/L Alkaline Phosphatase (45-117) U/L Troponin I (0-0.045) ng/ml NT-Pro-B Natriuret Pep (0-1800) pg/ml Total Protein (6.4-8.2) gm/dl Albumin (3.4-5.0) gm/dl Globulin (2.5-4.0) gm/dl Albumin/Globulin Ratio (0.9-2) Lipase (73-393) U/L TSH (0.300-4.500) uIu/ml A. phagocytophilum IgG <1:64 (<1:64) A. phagocytophilum IgM <1:20 (<1:20) A.phagocytophilum Intrp see note A. phagocytophilum Cmmt see note Lyme Disease IgG Ab Negative (Negative) Lyme Disease IgM Ab Negative (Negative) Imaging Data Radiologist's Impression: Radiology results as stated below per my review and the radiologist's interpretation: PA CHEST RADIOGRAPH AND UPRIGHT AND SUPINE AP RADIOGRAPHS OF THE ABDOMEN CLINICAL HISTORY: Nausea, vomiting and diarrhea COMPARISON STUDY: Chest radiograph April 07, 2017. FINDINGS: Prosthetic cardiac valve, median sternotomy wires and right shoulder arthroplasty are incidentally noted. There is a trace left pleural effusion. There is no evidence for pulmonary edema. No consolidation is identified. Mild cardiomegaly is noted. There is no evidence for free air. There may be a hiatal hernia. Bowel gas pattern is within normal limits. There is extensive vascular calcification. IMPRESSION: 1. No free air or evidence of bowel obstruction. 2. Suspected moderate-sized hiatal hernia. 3. Trace left pleural effusion. Electronically signed by: Cody Estrada M.D. 02/19/2019 8:[address] OF THE HEAD WITHOUT CONTRAST CLINICAL HISTORY: Fatigue. Confusion. COMPARISON STUDY: Head CT April 07, 2017. CT DOSE: 537.48 mGy.cm TECHNIQUE: Helical axial images of the head were obtained without IV contrast. Automated exposure control was utilized for the study. A dose lowering techni que was utilized adhering to the principles of ALARA. FINDINGS: No acute intracranial hemorrhage, midline shift or mass effect is present. Ventricular system is normal. The basilar cisterns are patent. There are no extra axial collections. White matter hypodensities suggest small vessel disease. There are no findings to suggest acute dural sinus thrombosis or acute territorial infarct. There is an old lacunar infarct within the left thalamus. There are no significant calvarial abnormalities. IMPRESSION: No acute intracranial findings. Electronically signed by: Cody Estrada M.D. 02/19/2019 10:[address] OF THE ABDOMEN AND PELVIS WITH CONTRAST CLINICAL HISTORY: Nausea, vomiting and diarrhea. COMPARISON STUDY: Abdominal series performed earlier today. TECHNIQUE: Following IV administration of 90 mL of Optiray-320, axial images of the abdomen and pelvis were obtained from the lung bases to the proximal femurs. Images were reviewed in the axial, sagittal, and coronal planes. IV contrast was administered without complication. Automated exposure control was utilized for the study. A dose lowering technique was utilized adhering to the principles of ALARA. CT DOSE: 311.18 mGy.cm FINDINGS: Imaged portions of the lower chest demonstrate a moderate sized hiatal hernia with partially intrathoracic stomach. Note is made of a few subpleural nodular opacities within the right lower lobe measure up to 2.3 cm. No pneumatosis, free air or portal venous gas is present. The liver is unremarkable with the exception of a small medial segment cyst. The spleen, adrenal glands are unremarkable. Water attenuation bilateral renal lesions favor cysts. Several lesions are too small to characterize. There is no hydronephrosis. No biliary or pancreatic ductal dilatation is present. Abdominal aorta is ectatic. There is extensive plaque. Gallstones within gallbladder noted. There is no evidence for acute cholecystitis. The appendix is unremarkable. There is sigmoid diverticulosis without evidence for acute diverticulitis. Colon is mildly fluid- filled. No bowel wall thickening is identified. There are are old lower thoracic and lumbar spine compression fractures. IMPRESSION: 1. Fluid-filled colon which may reflect a diarrheal state. 2. A few subpleural nodular opacities within the right lower lobe measure up to 2.3 cm. These are indeterminate and a follow-up chest CT is recommended as a neoplastic process would be difficult to exclude. 3. Cholelithiasis. No evidence for acute cholecystitis. 4. Moderate sized hiatal hernia. Electronically signed by: Cody Estrada M.D. 02/19/2019 10:22 PM ECG Data Attestation: I personally reviewed and interpreted this ECG as follows: Indication: altered mental status Rate (beats per minute): 86 Rhythm: sinus rhythm Findings: + other (normal axis; normal intervals ); no acute ischemic change and no ectopy Blood Pressure Blood Pressure Findings: Elevated blood pressure Blood Pressure Disposition: further management by hospitalist PENELOPE Motley Patient here initially ill-appearing however improved with gentle IV fluid hydration. Patient was cautiously given IV fluids due to concern for cardiac history. Patient's BNP was found to be elevated although patient did not appear to be in acute pulmonary edema. Patient was noted to be hypoxic and was placed on 2 L via nasal cannula. No prior history of COPD or recent upper respiratory infection. Lab did call to say that patient's CBC was consistent with likely anaplasmosis. Patient did have thrombus cytopenia mild abnormal LFTs. Patient was started on doxycycline in light of this. Given concern for hypoxia in the setting of elevated BNP, need for cautious rehydration due to recent GI losses, I discussed with patient additional inpatient evaluation. I discussed all results with her and family at bedside and they were in agreement with the plan. Case discussed with the hospitalist. Impression & Plan Hypoxia, Nausea, vomiting, and diarrhea, Elevated brain natriuretic peptide (BNP) level, Dehydration Discharge Plan Visit Data *Final* Discharge Date/Time: 02/20/19 00:02 Chief Complaint: Back Injury/Pain Stated Complaint: BACKACHE, VOMITING, NAUSEA ED Provider: July Harding Discharge Problem: Hypoxia, Nausea, vomiting, and diarrhea, Elevated brain natriuretic peptide (BNP) level, Dehydration Patient Disposition: Admitted As Inpatient Discharge Instructions Interventions: ED Discharge Assessment Last Done: 02/20/19 00:02 The scribe's documentation has been prepared under my direction and personally reviewed by me in its entirety. I confirm that the note above accurately reflects all work, treatment, procedures, and medical decision making performed by me.
[2019-02-23] MEDS: ACETAMINOPHEN SOLN 160 MG/5 ML BTL PO SCH (06:49)
[2019-02-23 07:04] LABS: Basophils # (auto) 0.01 K/uL (0-0.2); Basophils % (auto) 0.2 %; Eosinophils # (auto) 0.06 K/uL (0-0.5); Eosinophils % (auto) 1.1 %; Hematocrit (blood only) 35.3 % (37-47); Hemoglobin 11.7 g/dL (12.0-16.0); Immature Granulocytes # (auto) 0.04 K/uL (0.00-0.02); Immature Granulocytes % (auto) 0.8 %; Lymphocytes # (auto) 1.21 K/uL (1.2-3.4); Lymphocytes % (auto) 23.1 %; Mean Corpuscular Hgb Conc 33.1 g/dL (32-36); Mean Corpuscular Volume 85.7 fL (80-100); Mean Platelet Volume 9.7 fL (7.4-10.4); Monocytes # (auto) 0.54 K/uL (0.11-0.59); Monocytes % (auto) 10.3 %; Neutrophils # (auto) 3.38 K/uL (1.4-6.5); Neutrophils % (auto) 64.5 %; Platelet Count 100 K/uL (130-400); RDW Coefficient of Variation 18.2 % (11.5-14.5); RDW Standard Deviation 57.1 fL (36.4-46.3); Red Blood Count 4.12 M/uL (4.2-5.4); White Blood Count 5.24 K/uL (4.8-10.8)
[2019-02-23 07:40] LABS: Albumin Level 2.4 gm/dl (3.4-5.0); BUN Creatinine Ratio 27.1 (10-20); Creatinine Clr Calc Pharmacy 40.3 ml/min; Est GFR (African American) 75.5; Est GFR (Non-African American) 65.2; Potassium 4.2 mmol/L (3.5-5.1)
[2019-02-23 07:43] LABS: Albumin Globulin Ratio 0.7 (0.9-2); Bilirubin,Total 0.5 mg/dl (0.2-1); Globulin 3.4 gm/dl (2.5-4.0); Total Protein 5.8 gm/dl (6.4-8.2)
[2019-02-23] MEDS: CHOLECALCIFEROL 1,000 UNITS TAB PO SCH (08:41)
[2019-02-23] MEDS: FOLIC ACID 1 MG TAB PO SCH (08:41)
[2019-02-23] MEDS: CARVEDILOL 6.25 MG TAB PO SCH (08:41)
[2019-02-23] MEDS: APIXABAN 5 MG TABLET PO SCH (08:42)
[2019-02-23] MEDS: LIDOCAINE 5% 1 PATCH TD SCH (08:42)
[2019-02-23] MEDS: DOXYCYCLINE HYCLATE 100 MG in DEXTROSE 5% 100 ML IV SCH (08:45)
--- NOTE | 2019-02-23 10:21 | Discharge Summary ---
Date of Service February 23, 2019 Admission HPI Per Admitting Provider Alyse Cedillo is a pleasant 79 yo female with history of CAD s/p CABG with subsequent stenting, bioprosthetic mitral valve replacement, breast cancer s/p mastectomy presenting with multiple complaints. Patient with two weeks of lower thoracic back pain, progressively worsening over the weekend, Monday - Monday. Pain quite severe, lower thoracic, worse with movement. Difficulty with ambulation and ADLs. Patient is on chronic prednisone for arthritis and has had compression fractures in the past and feels that this is similar. She denies numbness/tingling or focal weakness. No trauma, falls, fevers or chills. She had a tick bite approximately one month ago that was treated with a single dose of Doxycycline. She had another tick bite 4 days ago. No rash developed. No fevers. This morning she developed nausea with 20-25 episodes of spitting up phlegm. No food in vomitus, no hematemesis or coffee ground material. Also with 5-6 episodes of loose stools. Patient with subsequent diffuse weakness and fatigue. Denies changes in diet or medication, no recent travel or sick contacts. Patient presently complains of fatigue. No additional complaints at this time. Notably denies chest pain, palpitations, SOB, BAHENA, cough, orthopnea, edema or weight gain. Patient afebrile, hemodynamically stable 88% on room air. Patient with no known lung disease. No history of CHF. By report, she had a cardiac stress test in the fall of 2018 that was unremarkable. She had a lung nodule that was being followed radiographically for > 10 years that was biopsied in the fall as well that was negative for malignancy. ER Course: Doxycycline, Pepcid, Zofran, NSS Admission Exam Per Admitting Provider General: patient resting comfortably, NAD, non-toxic in appearance, AA&O x 4, appears fatigued Skin: warm, dry, intact, no rashes or lesions HEENT: NC/AT, PERRL, EOMI, anicteric sclera, conjunctiva without injection, external ear normal to inspection and nontender, nares patent, dry mucus membranes, dentition intact, no oropharyngeal lesions, neck supple, trachea midline, no LAD, no thyromegaly, no JVD Heart: +S1/S2, regular, soft ERIN at apex, no r/g Lungs: equal air entry bilaterally, no rhonchi/wheezes,, bibasilar rales Abd: +BS, soft, NT/ND, no masses/organomegaly/ascites Ext: warm, 2+ pulses in UE/LE bilaterally, no clubbing/cyanosis or edema Neuro: nonfocal, patient AA&O x 4, speech intact, no facial droop, moving all extremities on command with equal strength 5/5 Principal Diagnosis Anaplasmosis Discharge Exam Constitutional WD/WN, vitals as above Eyes PERRL, conjunctivae normal, anicteric sclerae ENMT external ear and nose normal, oropharynx normal Neck trachea midline, no thyromegaly Respiratory normal respiratory effort, lungs clear to auscultation Cardiovascular Rate/Rhythm: regular rate (90's) and + irregularly irregular Heart Sounds: normal S1 and normal S2; no murmur Palpation: no thrill Vessels: no JVD Extremities: normal capillary refill and + pedal edema Gastrointestinal (Abdomen) normal bowel sounds, soft, nontender, no hepatosplenomegaly Musculoskeletal no cyanosis or clubbing, extremities motor strength 5/5 Skin no rashes, warm and dry Neurologic patellar DTR's 2+ bilat, sensation intact and PERRL, EOMI, accommodation nl, no face palsy, no dysarthria Psychiatric A+Ox3, euthymic affect Lymphatic no cervical or axillary lymphadenopathy Discharge Data Allergies Allergy/AdvReac Type Severity Reaction Status Date / Time lorazepam AdvReac Severe DELIRIUM Unverified 02/19/19 18:06 promethazine AdvReac Severe DELIRIUM Unverified 02/19/19 18:06 Consultations 02/20/19 10:02 Consult Lung Nodule Program Routine 02/21/19 19:47 Consult Cardiology Routine Ordered Studies 02/19/19 21:09 CT abd pelvis IV con only Stat 02/19/19 21:10 CT head/brain wo con Stat 02/20/19 10:20 CT chest wo con Routine Hospital Course (1) Anaplasmosis: Inclusion bodies on peripheral smear, serology still pending but treating empirically with doxycycline With pancytopenia, elevated LFTs, history of tick bite treated initially with doxycycline 100mg IV bid convert to PO Doxy BID, will complete a total of 14 days for complete treatment of anaplasmosis Platelets improving every day follow up with PCP for results of serology studies (2) Atrial fibrillation: With RVR, new diagnosis on evening of 02/21. Pt completely asymptomatic but the only time she has had Afib was post-op from MVR/CABG. Rates in 90s to low 100's, no symptoms at all -Cardio consult appreciated -increase Coreg to 6.25mg bid -still hoping she may spontaneously convert, if not, Cardio said could possibly DCCV in the future -Now the platelets are improved, will start her on Eliquis 5 mg p.o. twice daily patient plans to follow up with Dr. Arauz, her outpatient doctor podiatric medicine (3) Hypoxia: Initially with mild hypoxia on room air, 88%, has been saturating well on 2L NC . Chest CT 02/19 showed: IMPRESSION: 1. A few right lower lobe pleural-based nodules with the largest measuring 2.3 x 1.1 cm. These are nonspecific but could represent metastatic disease. 2. Trace left pleural effusion. 3. Moderate hiatus hernia, unchanged. 4. Cardiomegaly with pulmonary hypertension. 5. Healing right medial clavicle fracture. 6. Multiple old compression fractures within the thoracic spine. Echo:left asymmetric ventricular hypertrophy, mild aortic regurgitation, mild mitral regurgitation, moderate tricuspid regurgitation, EF 55%, elevated right ventricular pressures, Is now completely weaned off oxygen and doing very well (4) Elevated brain natriuretic peptide (BNP) level: Echo without apparent CHF, no apparent CHF on CT chest, dry appearing labs initially and therefore has been on IV fluids patient does not have evidence of heart failure (5) Back pain: Patient with chronic back pain, acutely worsened by the anaplasmosis- improved prior to discharge Also has old compression fractures - no new compression fractures on Xrays -Continue Vitamin D - continue lidocaine patches, scheduled tylenol, PT/OT - has seen Dr. Mathew in the past for compression fractures (6) Nausea, vomiting, and diarrhea: Possibly secondary to anaplasmosis Now completely resolved Discontinue IV fluids today -Stool studies sent from ER (7) CAD (coronary artery disease): Stable. Patient denies chest pain -Continue Coreg at increased dose 6.25 mill grams p.o. twice daily, but hold simvastatin for elevated LFTs, can continue CoQ10 -We will be discontinuing aspirin at recommendation of doctor podiatric medicine as above after starting Eliquis (8) Anemia: H/H = Hgb slightly decreased at 11.2-likely dilutional -Continue to monitor -Continue Folic Acid - follow cbc am (9) Thrombocytopenia: Platelets nesha at 61k, was normal on prior studies from last year. [place] secondary to tick borne illness Platelets improved today to 86 -Follow Anaplasmosis labs - inclusion bodies on peripheral smear -CBC in AM (10) Arthritis: Chronic. Stable -Continue home prednisone 5 mg daily in the evenings Initially received stress dosed steroids with IV hydrocortisone for low blood pressures, but then discontinued this when blood pressures became more elevated and was in rapid A. fib (11) History of mitral valve repair: approximately ten years ago with some mild MR on ECHO here -follow with ECHO as outpt (12) Metabolic acidosis: Bicarbonate remains mildly low but improved from yesterday at 18, non- anion gap She previously did have diarrhea and this may be bicarbonate and GI losses, but unclear as she has not had any diarrhea now in 2 to 3 days -Okay to DC IV fluids now, is tolerating p.o. quite well -Follow BMP in the morning (13) DVT prophylaxis: Discontinue SQ Lovenox and starting Eliquis tonight Dispo-remain overnight on telemetry, if A. fib rates are controlled and feeling well otherwise, blood counts continue to improve, could discharge to home on Monday Eliquis Joseph is going to be $75 for 1 month supply and if she uses her 3-month pharmacy would go down to $150 for 3 months Coupon given for first month free by case management Total Time Total Time Spent Total Time Spent (In Minutes): 40 minutes Total Time Includes: Examination of the Patient, Discharge Planning, Medication Reconciliation and Communication With Other Providers Discharge Plan Discharge Items Patient Disposition: Home - Self-Care Reason For Visit: N / V / D Discharge Diagnosis: Anaplasmosis Atrial fibrillation Condition: Good Discharge Goals: Improve disease control and Improve function Activity: Resume your previous activity Non-emergency contact: Primary Care Provider and Milking Machine Operator Call non-emergency contact if: you have any medication questions and your symptoms worsen Follow-up/Referrals: Damion Carballo [Primary Care Provider] - Diet: Heart Healthy Addtl Provider Instructions: Medications: - DOXYCYCLINE: take 100mg twice a day for 10 more days to complete treatment for Anaplasmosis - COREG: dose increased to 6.25mg twice a day to control heart rate - ELIQUIS: 5mg twice a day, this is anticoagulation for stroke prevention Anaplasmosis: tick born illness diagnosed on peripheral smear caused low platelets, mild elevation in liver enzymes treatment is Doxycycline twice a day, complete a 14 day course Atrial fibrillation: heart rates controlled Coreg, increased dose to 6.25mg will be anticoagulated on Eliquis FOLLOW UP - call for appt with Dr. Carballo in one week - call for appt with Dr. Zarate in 2-3 weeks Prescriptions: New carvedilol 6.25 mg Tablet 6.25 mg PO BID 30 Days Qty: 60 RF: 1 Eliquis 5 mg Tablet 5 mg PO BID 30 Days Qty: 60 RF: 1 doxycycline hyclate 100 mg capsule 100 mg PO BID 10 Days Qty: 20 RF: 0 Continued prednisone 5 mg Tablet 5 mg PO QPM RF: 0 aspirin 81 mg Tablet,Delayed Release (Dr/Ec) 81 mg PO DAILY RF: 0 tramadol 50 mg Tablet 50 mg PO BID PRN (Reason: Pain) RF: 0 simvastatin 40 mg Tablet 40 mg PO PM RF: 0 ranitidine HCl 150 mg Tablet 150 mg PO BID PRN (Reason: Acid Reflux) RF: 0 folic acid 1 mg Tablet 1 mg PO DAILY RF: 0 zoledronic [id number] [Reclast] 5 mg/100 mL Piggyback 5 mg IV YEARLY RF: 0 cholecalciferol (vitamin D3) [Vitamin D3] 2,000 unit Tablet 4,000 unit PO DAILY RF: 0 Discontinued carvedilol [Coreg] 6.25 mg Tablet 3.125 mg PO BID RF: 0 Stand-Alone Forms: [facility] Discharge Orders: Discharge Order (Routine); Ordered 02/23/19 Ordered By: Tim Carey Admission Data Admit Date/Time: 02/19/19 23:34 Attending Provider: Tim Carey Admit Provider: Michelle Robles Primary Care Provider: Damion Carballo Other Providers: Robert Garcia Service: Telemetry Other Interventions: Discharge Summary Assessment (RN) Last Done: 02/23/19 10:50 DC Date/Time DO NOT enter until pt leaves facility: 02/23/19 12:45
== END 2019-02-23 12:45 | disposition home or self-care (01) | DRG 869 ==
LOC: ED 17:44 → SUATTDRO 23:34 → 4E 23:34 → 2S 02-21 18:14
DX: Z79.82 Long term (current) use of aspirin; M19.90 Unspecified osteoarthritis, unspecified site; E86.0 Dehydration; A77.49 Other ehrlichiosis; R09.02 Hypoxemia; Z88.8 Allergy status to other drugs, medicaments and biological substances; Z95.1 Presence of aortocoronary bypass graft; I25.10 Atherosclerotic heart disease of native coronary artery without angina pectoris; Z95.2 Presence of prosthetic heart valve; D64.9 Anemia, unspecified; Z95.5 Presence of coronary angioplasty implant and graft; Z85.3 Personal history of malignant neoplasm of breast; I48.91 Unspecified atrial fibrillation

== ENCOUNTER 2019-05-23 17:22 | Inpatient (IN) ==
--- NOTE | 2019-05-23 18:11 | XRay Report ---
XR chest 1V portable CLINICAL HISTORY: Atypical chest pain COMPARISON STUDY: 02/19/2019 FINDINGS: The heart is enlarged. There are postsurgical changes of midline sternotomy and valvular re placement. There are small bilateral pleural effusions. There is a 4 cm opacity at the right lateral lung base. Diagnostic considerations include pneumonia, atelectasis, or pulmonary infarct.[ IMPRESSION: 1. Cardiomegaly and small bilateral pleural effusions 2. 4 cm opacity at the right lateral lung base. Diagnostic considerations include pneumonia, atelecta sis, or pulmonary infarct. Electronically signed by: Yusef Teran M.D. 05/23/2019 6:10 PM
[2019-05-23 18:34] LABS: Basophils # (auto) 0.02 K/uL (0-0.2); Basophils % (auto) 0.3 %; Eosinophils # (auto) 0.02 K/uL (0-0.5); Eosinophils % (auto) 0.3 %; Hematocrit (blood only) 32.3 % (37-47); Hemoglobin 10.1 g/dL (12.0-16.0); Immature Granulocytes # (auto) 0.02 K/uL (0.00-0.02); Immature Granulocytes % (auto) 0.3 %; Lymphocytes # (auto) 0.74 K/uL (1.2-3.4); Lymphocytes % (auto) 9.6 %; Mean Corpuscular Hgb Conc 31.3 g/dL (32-36); Mean Corpuscular Volume 88.5 fL (80-100); Mean Platelet Volume 9.3 fL (7.4-10.4); Monocytes # (auto) 0.88 K/uL (0.11-0.59); Monocytes % (auto) 11.4 %; Neutrophils # (auto) 6.06 K/uL (1.4-6.5); Neutrophils % (auto) 78.1 %; Platelet Count 240 K/uL (130-400); RDW Coefficient of Variation 17.4 % (11.5-14.5); RDW Standard Deviation 55.2 fL (36.4-46.3); Red Blood Count 3.65 M/uL (4.2-5.4); White Blood Count 7.74 K/uL (4.8-10.8)
[2019-05-23 18:44] LABS: INR 3.1 (0.9-1.1); Prothrombin Time 29.4 Seconds (9.0-12.0)
[2019-05-23 19:03] LABS: Alanine Aminotransferase 45 U/L (12-78); Albumin Globulin Ratio 0.9 (0.9-2); Alkaline Phosphatase 75 U/L (45-117); Aspartate Aminotransferase 32 U/L (15-37); BUN Creatinine Ratio 29.4 (10-20); Bilirubin,Total 0.7 mg/dl (0.2-1); Blood Urea Nitrogen 32 mg/dl (7-18); Calcium 8.6 mg/dl (8.5-10.1); Carbon Dioxide 22 mmol/L (21-32); Chloride 112 mmol/L (98-107); Creatinine Clr Calc Pharmacy 32.6 ml/min; Est GFR (African American) 55.9; Est GFR (Non-African American) 48.2; Globulin 3.3 gm/dl (2.5-4.0); Glucose 119 mg/dl (70-99); Magnesium 2.4 mg/dl (1.8-2.4); NT Pro B Type Natriuretic Pept 4050 pg/ml (0-1800); Phosphorus 2.4 mg/dl (2.5-4.9); Potassium 4.5 mmol/L (3.5-5.1); Sodium 141 mmol/L (136-145); Total Protein 6.3 gm/dl (6.4-8.2); Troponin I < 0.015 ng/ml (0-0.045)
--- NOTE | 2019-05-23 19:15 | Emergency Department Note ---
Entered by Avi Prescott acting as a scribe for Juan Vanegas MD History of Present Illness General Chief complaint: Abnormal Labs/Diagnostic Testing Stated complaint: FLUID ON LUNG Time Seen by Provider: 05/23/19 17:36 Source: patient and family History of Present Illness Provider complaint: Abnormal Labs Onset (ago): hour(s) 6 Location: chest Radiation: non-radiation Maximum Pain Intensity: 0 Relieved By: + none Exacerbated By: + none Associated symptoms: + cough, + shortness of breath and + other (+small amount of swelling in legs) Treatments prior to arrival: none The patient is a 79 year old female who presents to the ED with complaints of having abnormal blood test results about 6 hours ago today. The patient has been having a cough and shortness of breath that have been happening for a week so she went to her doctor to get it checked out. They then decided to have her get a chest X-Ray done as well as some blood work. Per her results, there was fluid in her lungs so they recommended she come here. The patient has a history of Afib that began three months ago. The patient is on Coumadin. She denies being on a water pill. The patient feels her legs may be a little more swollen but denies any other symptoms. Home Medications Home Medications Medication Instructions Recorded Confirmed Type aspirin 81 mg PO DAILY 02/19/19 05/23/19 History folic acid 1 mg PO DAILY 02/19/19 05/23/19 History prednisone 5 mg PO QPM 02/19/19 05/23/19 History ranitidine HCl 150 mg PO BID PRN 02/19/19 05/23/19 History simvastatin 40 mg PO PM 02/19/19 05/23/19 History zoledronic qcpa-xxanexuc-wajkb 5 mg IV YEARLY 02/19/19 05/23/19 History [Reclast] albuterol sulfate 2 puff INHALATION DIRECTED PRN 05/23/19 05/23/19 History benzonatate 100 mg PO DIRECTED PRN 05/23/19 05/23/19 History budesonide-formoterol [Symbicort] 2 puff INHALATION BID 05/23/19 05/23/19 History carvedilol 6.25 mg PO BID 05/23/19 05/23/19 History cefuroxime axetil 250 mg PO BID 05/23/19 05/23/19 History cholecalciferol (vitamin D3) 2,000 unit PO DAILY 05/23/19 05/23/19 History [Vitamin D3] dextromethorphan polistirex [Cough 10 ml PO Q12H PRN 05/23/19 05/23/19 History DM ER] diphenhydramine-acetaminophen 1 tab PO HS PRN 05/23/19 05/23/19 History [Tylenol PM Extra Strength] methotrexate sodium 12.5 mg PO WK 05/23/19 05/23/19 History methylprednisolone [Medrol (Mariano)] 0 mg PO DIRECTED 05/23/19 05/23/19 History ropinirole 0.5 - 1 mg PO HS 05/23/19 05/23/19 History warfarin 2 mg PO DAILY 05/23/19 05/23/19 History Allergies Allergy/AdvReac Type Severity Reaction Status Date / Time lorazepam AdvReac Severe DELIRIUM Verified 05/23/19 18:29 promethazine AdvReac Severe DELIRIUM Verified 05/23/19 18:29 Past Med/Surg History Medical History Compression fracture (Chronic) Anemia Arthritis Breast cancer CAD (coronary artery disease) s/p CABG with stenting Surgical History History of coronary artery bypass graft History of coronary artery stent placement History of mastectomy History of mitral valve replacement History of shoulder surgery Family History Other Family history non-contributory Social History Preferred Language: [place]ambican Communication Ability: Effective 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 and A total of 10 systems reviewed and were otherwise negative Physical Exam Vital Signs Vital Signs - 24 hr 05/23/19 17:25 05/23/19 20:20 05/23/19 21:20 Temperature 36.9 C Temperature Source Oral Sepsis Recent Fever Within 48 Hours No Sepsis Action Taken by Nursing No Action Required Pulse Rate [Right Finger] 112 H 113 H Pulse Rhythm [Right Finger] Regular Pulse Strength [Right Finger] Normal Respiratory Rate 16 20 20 Respiratory Effort / Characteristics Non-Labored Non-Labored Respiratory Depth Normal Normal Respiratory Pattern Regular Regular Blood Pressure 111/73 Blood Pressure [Left Arm] 110/76 128/91 Blood Pressure Mean 85 Blood Pressure Mean [Left Arm] 87 103 Blood Pressure Position Sitting Blood Pressure Position [Left Arm] Sitting Pulse Oximetry 95 98 98 Oxygen Delivery Method Room Air Room Air 05/23/19 22:00 05/24/19 00:01 Temperature Temperature Source Sepsis Recent Fever Within 48 Hours Sepsis Action Taken by Nursing Pulse Rate [Right Finger] 115 H 103 H Pulse Rhythm [Right Finger] Irregular Pulse Strength [Right Finger] Normal Respiratory Rate 20 20 Respiratory Effort / Characteristics Non-Labored Spontaneous Respiratory Depth Normal Respiratory Pattern Blood Pressure Blood Pressure [Left Arm] 161/116 H 108/78 Blood Pressure Mean Blood Pressure Mean [Left Arm] 131 88 Blood Pressure Position Blood Pressure Position [Left Arm] Pulse Oximetry 98 96 Oxygen Delivery Method Room Air GENERAL: Awake, alert, fatigued appearing, no distress HENT: Normocephalic, atraumatic. TM's normal. Oropharynx with dry mucous membranes and otherwise unremarkable. . EYES: PERRL. EOMI. Normal conjunctiva. Sclera non-icteric. NECK: Supple. No nuchal rigidity. FROM. No JVD or bruit. RESPIRATORY: Diminished breath sounds bilaterally at the bases of the lungs. CARDIAC: Regular rate and irregular rhythm. ABDOMEN: Soft, non distended. No tenderness to palpation. No rebound or guarding. No masses. RECTAL: Deferred. MUSCULOSKELETAL: Unremarkable. 1+ bilateral lower extremity edema. No discoloration. Gross motor strength symmetric. NEURO: Normal sensorium. No sensory or motor deficits noted. SKIN: No rash or jaundice noted. LYMPH: No adenopathy Course 1740: Medical records reviewed. The patient was seen in room B4B, a physical examination was performed. 2047: I reevaluated the patient and performed a bedside ultrasound. 2129: I spoke to Dr. Crandall, [facility] Hospitalist, about the patients case and he agreed to accept the patient for further evaluation. 2199: The patient accepts the plan for further evaluation, she was admitted. Administered Medications Acetaminophen (Tylenol) 650 mg PO Q4H PRN PRN Reason: Pain or Fever Stop: 06/23/19 00:45 Last Admin: 05/24/19 22:45 Dose: 650 mg Documented by: [id number] Aspirin (Ecotrin Ectab) 81 mg PO DAILY [facility] Stop: 06/23/19 08:59 Last Admin: 05/24/19 08:28 Dose: 81 mg Documented by: [id number] Benzonatate (Tessalon Perle) 100 mg PO TID PRN PRN Reason: Cough Stop: 06/23/19 00:45 Last Admin: 05/24/19 08:35 Dose: 100 mg Documented by: [id number] Budesonide/Formoterol Fumarate (Symbicort 160mcg/4.5mcg) 2 puffs INH BID [facility] Stop: 06/23/19 08:59 Last Admin: 05/24/19 20:54 Dose: 2 puffs Documented by: [id number] Admin: 05/24/19 08:36 Dose: 2 puffs Documented by: [id number] Carvedilol (Coreg) 6.25 mg PO BID [facility] Stop: 06/23/19 08:59 Last Admin: 05/24/19 20:52 Dose: 6.25 mg Documented by: [id number] Admin: 05/24/19 08:27 Dose: 6.25 mg Documented by: [id number] Dextromethorphan Polymer Complex (Delsym) 60 mg PO Q12H PRN PRN Reason: Cough Stop: 06/23/19 00:45 Last Admin: 05/24/19 12:51 Dose: 60 mg Documented by: [id number] Famotidine (Pepcid) 20 mg PO BID [facility]; Protocol Stop: 06/23/19 20:59 Last Admin: 05/24/19 20:54 Dose: 20 mg Documented by: [id number] Folic Acid (Folvite) 1 mg PO DAILY [facility] Stop: 06/23/19 08:59 Last Admin: 05/24/19 08:30 Dose: 1 mg Documented by: [id number] Methylprednisolone 30 mg/ (Syringe) 0.48 mls @ 1.5 mls/min IV Q6H [facility] Stop: 06/23/19 18:59 Last Admin: 05/24/19 19:40 Dose: 1.5 mls/min Documented by: [id number] Azithromycin 500 mg/ Dextrose 255 mls @ 125 mls/hr IV DAILY [facility] Stop: 05/31/19 18:59 Last Infusion: 05/24/19 23:31 Dose: 0 mls/hr Documented by: [id number] Admin: 05/24/19 20:49 Dose: 125 mls/hr Documented by: [id number] Furosemide 10 mg/ Syringe 1 mls @ 4 mls/min IV Q12H [facility] Stop: 06/23/19 19:59 Last Admin: 05/24/19 20:49 Dose: 4 mls/min Documented by: [id number] Diltiazem HCl 125 mg/ Dextrose 125 mls @ 5 mls/hr IV .Q24H [facility]; Protocol Stop: 06/23/19 21:19 Last Admin: 05/24/19 22:42 Dose: Not Given Documented by: [id number] Ropinirole HCl (Requip) 0.5 mg PO HS [facility] Stop: 06/23/19 20:59 Last Admin: 05/24/19 20:53 Dose: 0.5 mg Documented by: [id number] Simvastatin (Zocor) 40 mg PO PM [facility] Stop: 06/23/19 20:59 Last Admin: 05/24/19 20:51 Dose: 40 mg Documented by: [id number] Vitamin D (Vitamin D3) 2,000 units PO DAILY [facility] Stop: 06/23/19 08:59 Last Admin: 05/24/19 08:31 Dose: 2,000 units Documented by: [id number] Discontinued Medications Carvedilol (Coreg) 6.25 mg PO NOW ONE Stop: 05/23/19 21:12 Last Admin: 05/23/19 21:20 Dose: 6.25 mg Documented by: [id number] Diltiazem HCl (Cardizem) 10 mg IV NOW STA Stop: 05/24/19 21:21 Last Admin: 05/24/19 22:42 Dose: Not Given Documented by: [id number] Furosemide (Lasix) 40 mg IV NOW STA Stop: 05/23/19 21:11 Last Admin: 05/23/19 21:20 Dose: 40 mg Documented by: [id number] Famotidine 20 mg/ Syringe 5 mls @ 2.5 mls/min IV BID [facility] Stop: 06/23/19 08:59 Last Admin: 05/24/19 08:41 Dose: 2.5 mls/min Documented by: [id number] Phytonadione 2.5 mg/ Sodium (Chloride) 50.25 mls @ 100.5 mls/hr IV ONE ONE Stop: 05/24/19 19:04 Last Infusion: 05/24/19 20:20 Dose: 0 mls/hr Documented by: [id number] Admin: 05/24/19 19:47 Dose: 100.5 mls/hr Documented by: [id number] Ioversol (Optiray 320 125ml) 120 ml IV ONCE PRN PRN Reason: Interaction Checking Stop: 05/27/19 19:38 Last Admin: 05/23/19 19:40 Dose: 120 ml Documented by: [id number] Metoprolol Tartrate (Lopressor) 5 mg IV NOW STA Stop: 05/24/19 18:31 Last Admin: 05/24/19 19:32 Dose: 5 mg Documented by: [id number] Prednisone (Prednisone) 30 mg PO QAM [facility]; Taper Stop: 05/26/19 23:44 Last Admin: 05/24/19 08:33 Dose: 30 mg Documented by: [id number] Warfarin Sodium (Coumadin) 2 mg PO DAILY@1600 [facility] Stop: 06/23/19 15:59 Last Admin: 05/24/19 15:58 Dose: 2 mg Documented by: [id number] Medical Decision Making Differential Diagnosis Differential diagnosis: Etiologies such as infections, reactive airway disease, pneumonia, pneumothorax, COPD, CHF, cardiac ischemia, pulmonary embolism, musculoskeletal, gastrointestinal, as well as others were entertained. Medical Records Attestation: I reviewed the patient's medical records. Home Medications Current Medication List: was personally reviewed by me Laboratory Data Attestation: I reviewed the patient's lab results. Result diagrams: 05/24/19 05:35 05/24/19 05:35 Lab Results 05/23/19 05/23/19 05/23/19 Range/Units 18:13 18:13 18:21 WBC 7.74 (4.8-10.8) K/uL RBC 3.65 L (4.2-5.4) M/uL Hgb 10.1 L (12.0-16.0) g/dL Hct 32.3 L (37-47) % MCV 88.5 (80-100) fL MCH 27.7 (25-34) pg MCHC 31.3 L (32-36) g/dL RDW Std Deviation 55.2 H (36.4-46.3) fL RDW Coeff of Nina 17.4 H (11.5-14.5) % Plt Count 240 (130-400) K/uL MPV 9.3 (7.4-10.4) fL Immature Gran % (Auto) 0.3 % Neut % (Auto) 78.1 % Lymph % (Auto) 9.6 % [place] % (Auto) 11.4 % Eos % (Auto) 0.3 % Baso % (Auto) 0.3 % Immature Gran # (Auto) 0.02 (0.00-0.02) K/uL Neut # (Auto) 6.06 (1.4-6.5) K/uL Lymph # (Auto) 0.74 L (1.2-3.4) K/uL [place] # (Auto) 0.88 H (0.11-0.59) K/uL Eos # (Auto) 0.02 (0-0.5) K/uL Baso # (Auto) 0.02 (0-0.2) K/uL PT 29.4 H (9.0-12.0) Seconds INR 3.1 H (0.9-1.1) Sodium 141 (136-145) mmol/L Potassium 4.5 (3.5-5.1) mmol/L Chloride 112 H (98-107) mmol/L Carbon Dioxide 22 (21-32) mmol/L Anion Gap 7.0 (3-11) BUN 32 H (7-18) mg/dl Creatinine 1.09 (0.6-1.2) mg/dl Est Cr Clr Drug Dosing 32.6 ml/min Est GFR ( Amer) 55.9 Est GFR (Non-Af Amer) 48.2 BUN/Creatinine Ratio 29.4 H (10-20) Glucose 119 H (70-99) mg/dl Calcium 8.6 (8.5-10.1) mg/dl Phosphorus 2.4 L (2.5-4.9) mg/dl Magnesium 2.4 (1.8-2.4) mg/dl Total Bilirubin 0.7 (0.2-1) mg/dl AST 32 (15-37) U/L ALT 45 (12-78) U/L Alkaline Phosphatase 75 (45-117) U/L Troponin I < 0.015 (0-0.045) ng/ml NT-Pro-B Natriuret Pep 4050 H (0-1800) pg/ml Total Protein 6.3 L (6.4-8.2) gm/dl Albumin 3.0 L (3.4-5.0) gm/dl Globulin 3.3 (2.5-4.0) gm/dl Albumin/Globulin Ratio 0.9 (0.9-2) Lipase 138 (73-393) U/L Specimen Hemolysis Imaging Data Radiologist's Impression: Radiology results as stated below per my review and the radiologist's interpretation: XR chest 1V portable CLINICAL HISTORY: Atypical chest pain COMPARISON STUDY: 02/19/2019 FINDINGS: The heart is enlarged. There are postsurgical changes of midline sternotomy and valvular replacement. There are small bilateral pleural effusions. There is a 4 cm opacity at the right lateral lung base. Diagnostic considerations include pneumonia, atelectasis, or pulmonary infarct.[ IMPRESSION: 1. Cardiomegaly and small bilateral pleural effusions 2. 4 cm opacity at the right lateral lung base. Diagnostic considerations include pneumonia, atelectasis, or pulmonary infarct. Electronically signed by: Yusef Teran M.D. 05/23/2019 6:[address] ANGIOGRAM OF THE CHEST CLINICAL HISTORY: Atypical lesion. Cough. Possible acute pulmonary embolism. COMPARISON STUDY: 02/20/2019 TECHNIQUE: Following the IV administration of 120 mL of Optiray-320, CT angiogram of the thorax was performed from the thoracic inlet to the lung bases utilizing the pulmonary embolus protocol. Images are reviewed in the axial, sagittal, and coronal planes. IV contrast was administered without complication. MIP imaging was performed. A dose lowering technique was utilized adhering to the principles of ALARA. CT DOSE: 349.00 mGy.cm FINDINGS: Right paratracheal lymph nodes are the upper limits of normal in size. There is no pathologic axillary or hilar lymphadenopathy There is dilatation of the ascending thoracic aorta which measures 4 cm. There are moderate atheromatous changes present within the descending thoracic aorta. There are no pulmonary artery filling defects to indicate acute pulmonary embolism. There is reflux of contrast into the inferior vena cava and hepatic veins, a finding indicating right heart dysfunction. There is a moderate hiatal hernia. There are bilateral pleural effusions. There are lower lobe compressive atelectatic changes. There is a 21 mm pleural- based nodule at the right lung base, similar in size to the preceding study. There is enlargement of the plain pulmonary trunk consistent with pulmonary hypertension There are multiple thoracic compression deformities. IMPRESSION: 1. No evidence of acute pulmonary embolism 2. Increasing bilateral pleural effusions. Evidence of right heart dysfunction. 3. Pulmonary hypertension 4. Stable 21 mm pleural-based nodule at the right lung base 5. Multiple thoracic vertebral body compression fractures 6. Hiatal hernia Electronically signed by: Yusef Teran M.D. 05/23/2019 8:01 PM ECG Data Attestation: I personally reviewed and interpreted this ECG as follows: Indication: other (abnormal labs) Rate (beats per minute): 102 Rhythm: atrial fibrillation Findings: + left axis deviation; no nonspecific-ST abn and no ST elevation Blood Pressure Blood Pressure Findings: Elevated blood pressure Blood Pressure Disposition: further management by hospitalist PENELOPE Narrative The patient is a pleasant 79-year-old woman with a past medical history of recent admission with diagnosis of A. fib now on Coumadin, history of CAD status post CABG, history of mitral valve repair, pulmonary hypertension who presents emergency department with persistent semi-productive cough and shortness of breath over the past week with outpatient evaluation by her PCP in [place] showing "increased fluid in her lungs" and was referred to the emergency department per hpi. On arrival the patient is fatigued appearing but no acute distress, afebrile stable vital signs. Patient does have diminished breath of the at the bases but is otherwise clear. She has 1+ bilateral lower extremity edema. WBC and platelet within normal limits. H/H 10.1/32.3 slightly decreased from admission in February. INR therapeutic at 3.1. Chemistry without acidosis. Electrolytes and LFTs unremarkable. Troponin negative. BNP 4K, similar to prior admission in February. Chest x-ray demonstrated bilateral pleural effusions with right basilar opacity which was further clarified on CT of the chest as a stable pleural-based lung nodule. Additionally the CT findings demonstrates worsening bilateral pleural effusions as well as reflux of contrast into the inferior vena cava and hepatic veins that is suggestive of right heart dysfun ction in the setting of previously identified evidence of elevated right-sided pressure on CT as well as on her echo in February. Limited bedside echo performed today shows plethoric IVC with minimal variability and does demonstrate RV dilation with flattening of septum. There is possible mildly reduced RV function per TAPSE of ~11mm. Patient was given IV lasix. Given the patient's worsening clinical symptoms of persistent semi-productive cough and lower extremity edema in the setting of possible cor pulmonale related to her pulmonary hypertension reasonable to admit the patient for further evaluation and management. Case was discussed with Dr. Crandall, [facility] hospitalist, who will evaluate the patient for admission. Impression & Plan Pulmonary hypertension, Pleural effusion, Volume overload Discharge Plan Visit Data *Final* Discharge Date/Time: 05/24/19 00:06 Chief Complaint: Abnormal Labs/Diagnostic Testing Stated Complaint: FLUID ON LUNG ED Provider: Juan Vanegas Discharge Problem: Pulmonary hypertension, Pleural effusion, Volume overload Patient Disposition: Admitted As Inpatient Discharge Instructions Interventions: ED Discharge Assessment Last Done: 05/24/19 00:06 The scribe's documentation has been prepared under my direction and personally reviewed by me in its entirety. I confirm that the note above accurately reflects all work, treatment, procedures, and medical decision making performed by me.
[2019-05-23] MEDS ORDERED: OPTIRAY 320 125ml IV PRN (19:39)
--- NOTE | 2019-05-23 20:02 | CT Scan Report ---
CT ANGIOGRAM OF THE CHEST CLINICAL HISTORY: Atypical lesion. Cough. Possible acute pulmonary embolism. COMPARISON STUDY: 02/20/2019 TECHNIQUE: Following the IV administration of 120 mL of Optiray-320, CT angiogram of the thorax was p erformed from the thoracic inlet to the lung bases utilizing the pulmonary embolus protocol. Images a re reviewed in the axial, sagittal, and coronal planes. IV contrast was administered without complica tion. MIP imaging was performed. A dose lowering technique was utilized adhering to the principles o f ALARA. CT DOSE: 349.00 mGy.cm FINDINGS: Right paratracheal lymph nodes are the upper limits of normal in size. There is no pathologic axillar y or hilar lymphadenopathy There is dilatation of the ascending thoracic aorta which measures 4 cm. There are moderate atheromat ous changes present within the descending thoracic aorta. There are no pulmonary artery filling defects to indicate acute pulmonary embolism. There is reflux o f contrast into the inferior vena cava and hepatic veins, a finding indicating right heart dysfunctio n. There is a moderate hiatal hernia. There are bilateral pleural effusions. There are lower lobe compressive atelectatic changes. There is a 21 mm pleural[facility], similar in size to the preceding study. There is enlargement of the plain pulmonary trunk consistent with pulmonary hypertension There are multiple thoracic compression deformities. IMPRESSION: 1. No evidence of acute pulmonary embolism 2. Increasing bilateral pleural effusions. Evidence of right heart dysfunction. 3. Pulmonary hypertension 4. Stable 21 mm pleural-based nodule at the right lung base 5. Multiple thoracic vertebral body compression fractures 6. Hiatal hernia Electronically signed by: Yusef Teran M.D. 05/23/2019 8:01 PM
[2019-05-23] MEDS ORDERED: FUROSEMIDE 40 MG/4 ML VIAL IV STA (21:10)
[2019-05-23] MEDS ORDERED: CARVEDILOL 12.5 MG TAB PO ONE (21:11)
--- NOTE | 2019-05-23 22:24 | History & Physical Report ---
Date of Service May 23, 2019 Assessment & Plan (1) Elevated brain natriuretic peptide (BNP) level: 79 y/o F with PMH HTN, HLD, CAD s/p CABG w/stenting, Anemia, Afib, NIIDM2, Anxiety, and Chronic Back Pain presents to [facility] with complaints of 1 week h/o dry cough, fatigue, BAHENA, 5 lb wt gain over 1 month found to have bilateral pleural effusions on imaging. Cough -Pt given IV Lasix 40 mg x1 in ER w/o resolution on sxs -will cont Tessalon perles for now -Uncertain that this is an underlying pulm issue. Perhaps GI role at play (esophagitis 2/2 reflux) -Will start IV Pepcid 20 mg BID, cont home Zantac 150 mg PO BID -GI input appreciated -given evidence of R heart dysfunction, careful diuresis moving forward -ECHO February 2019: Mild asymmetric LVH. LV systolic fxn normal. EF 55-60%. Mild Aortic regurg. Mild Mitral regurg. Moderate Tricuspid regurg. RV systolic pressure elevated at 30-40 mmHg Afib -Cont Coreg 6.25 mg PO BID, Warfarin 2 mg -Pt states has plans for cardioversion as outpt at end of month CAD -Continue Coreg 6.25 mg PO BID, simvastatin 40 mg, ASA 81 Chronic Back pain/Arthritis -stable currently, pt does not complain of pain -has old compression fractures -Continue Vitamin D, Prednisone (on taper currently: 30-20-10, then restart 5mg daily) - If severe, then can do lidocaine patches, scheduled tylenol, which has worked well in past - has seen Dr. Mathew in the past for compression fractures Anemia -At baseline on admit. Will cont to monitor -Continue Folic Acid FEN/GI: HH Diet DVT Prophylaxis: Coumadin FULL CODE Dispo: Med Surg Tele History of Present Illness Chief Complaint: cough Primary Care Provider: Damion Carballo 79 y/o F with PMH HTN, HLD, CAD s/p CABG w/stenting, Anemia, Afib, NIIDM2, Anxiety, and Chronic Back Pain presents to [facility] with dry cough that began one week ago along with some head congestion. Was seen by PCP who prescribed tessalon perles and decongestant, which did not help. Pt went back to PCP office yesterday and was given neb breathing tx, which pt did not seem to think helped very much. Pt sent to get blood work and CXR today. Per her results, there was fluid in her lungs so they recommended she come here. Pt additionally admits to LE Swelling, BAHENA, Fatigue, and 5 lb wt gain over last month. She is normally very active with activities including gardening, quilting club, and never had issues before. Denies F/N/V/D, rhinorrhea, sinus tenderness. Admits poor diet of mostly sandwiches and canned soups. 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 Has also been getting IV iron infusion one time. Pt with no other acute concerns or complaints. ER Course: CXR- Cardiomegaly and small b/l pleural effusions. 4 cm opacity at the R lateral lung base with consideration for PNA, atelectasis, or pulmonary infarct. Chest CTA- No evidence of acute PE. Increasing bilateral pleural effusions. Evidence of right heart dysfunction. Pulmonary HTN. Stable 21 mm pleural-based nodule at the right lung base. Multiple thoracic vertebral body compression fractures Labs: BNP 4050, Phos 2.4. Otherwise unremarkable. Pt given IV Lasix 40 mg and PO Carvedilol 6.25 mg Surg Hx: CABG, coronary artery stent placement, mastectomy, mitral valve replacement 10 yrs ago, shoulder Social: Denies Tobacco/Alcohol/Illicit Drug Use. Lives at home independently. Allergies Allergy/AdvReac Type Severity Reaction Status Date / Time lorazepam AdvReac Severe DELIRIUM Verified 05/23/19 18:29 promethazine AdvReac Severe DELIRIUM Verified 05/23/19 18:29 Home Medications Home Medications Medication Instructions Recorded Confirmed Type aspirin 81 mg PO DAILY 02/19/19 05/23/19 History folic acid 1 mg PO DAILY 02/19/19 05/23/19 History prednisone 5 mg PO QPM 02/19/19 05/23/19 History ranitidine HCl 150 mg PO BID PRN 02/19/19 05/23/19 History simvastatin 40 mg PO PM 02/19/19 05/23/19 History zoledronic [id number] 5 mg IV YEARLY 02/19/19 05/23/19 History [Reclast] albuterol sulfate 2 puff INHALATION DIRECTED PRN 05/23/19 05/23/19 History benzonatate 100 mg PO DIRECTED PRN 05/23/19 05/23/19 History budesonide-formoterol [Symbicort] 2 puff INHALATION BID 05/23/19 05/23/19 History carvedilol 6.25 mg PO BID 05/23/19 05/23/19 History cefuroxime axetil 250 mg PO BID 05/23/19 05/23/19 History cholecalciferol (vitamin D3) 2,000 unit PO DAILY 05/23/19 05/23/19 History [Vitamin D3] dextromethorphan polistirex [Cough 10 ml PO Q12H PRN 05/23/19 05/23/19 History DM ER] diphenhydramine-acetaminophen 1 tab PO HS PRN 05/23/19 05/23/19 History [Tylenol PM Extra Strength] methotrexate sodium 12.5 mg PO WK 05/23/19 05/23/19 History methylprednisolone [Medrol (Mariano)] 0 mg PO DIRECTED 05/23/19 05/23/19 History ropinirole 0.5 - 1 mg PO HS 05/23/19 05/23/19 History warfarin 2 mg PO DAILY 05/23/19 05/23/19 History Past Med/Surg History Medical History Compression fracture (Chronic) Anemia Arthritis Breast cancer CAD (coronary artery disease) s/p CABG with stenting Surgical History History of coronary artery bypass graft History of coronary artery stent placement History of mastectomy History of mitral valve replacement History of shoulder surgery Family History Other Family history non-contributory Social History Preferred Language: [place] Citizen Communication 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: 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 Beliefs That Will Affect Care: None Current Living Situation: Alone Other Information That Helps Us Care for You: No Feels Safe at Home: Yes Safety Concerns: Feels Safe At This Time Smoking Status: Never smoker Hx Alcohol Use: No Hx Substance Use: No Review of Systems Review of Systems: All systems reviewed & are unremarkable except as noted in HPI & below Physical Exam Constitutional: WD/WN, vitals as above Eyes: PERRL, conjunctivae normal, anicteric sclerae ENMT: external ear and nose normal, oropharynx normal Respiratory: Mildly diminished lung sounds at bases Cardiovascular: Rate/Rhythm: + irregularly irregular Gastrointestinal (Abdomen): normal bowel sounds, soft, nontender, no hepatosplenomegaly Skin: no rashes, warm and dry Psychiatric: A+Ox3, euthymic affect Lymphatic: Trace LE Edema Results & Data Vital Signs (Past 12 Hours) Vital Signs Temp Pulse Resp BP BP Pulse Ox 05/23/19 21:20 113 H 20 128/91 98 05/23/19 20:20 112 H 20 110/76 98 05/23/19 17:25 36.9 C 16 111/73 95 Laboratory Results Laboratory Results - last 24 hr 05/23/19 05/23/19 05/23/19 18:13 18:13 18:21 WBC 7.74 RBC 3.65 L Hgb 10.1 L Hct 32.3 L MCV 88.5 MCH 27.7 MCHC 31.3 L RDW Std Deviation 55.2 H RDW Coeff of Nina 17.4 H Plt Count 240 MPV 9.3 Immature Gran % (Auto) 0.3 Neut % (Auto) 78.1 Lymph % (Auto) 9.6 Chambers % (Auto) 11.4 Eos % (Auto) 0.3 Baso % (Auto) 0.3 Immature Gran # (Auto) 0.02 Neut # (Auto) 6.06 Lymph # (Auto) 0.74 L [place] # (Auto) 0.88 H Eos # (Auto) 0.02 Baso # (Auto) 0.02 PT 29.4 H INR 3.1 H Sodium 141 Potassium 4.5 Chloride 112 H Carbon Dioxide 22 Anion Gap 7.0 BUN 32 H Creatinine 1.09 Est Cr Clr Drug Dosing 32.6 Est GFR ( Amer) 55.9 Est GFR (Non-Af Amer) 48.2 BUN/Creatinine Ratio 29.4 H Glucose 119 H Calcium 8.6 Phosphorus 2.4 L Magnesium 2.4 Total Bilirubin 0.7 AST 32 ALT 45 Alkaline Phosphatase 75 Troponin I < 0.015 NT-Pro-B Natriuret Pep 4050 H Total Protein 6.3 L Albumin 3.0 L Globulin 3.3 Albumin/Globulin Ratio 0.9 Lipase 138 Specimen Hemolysis Medications Administered Current Inpatient Medications Ioversol (Optiray 320 125ml) 120 ml IV ONCE PRN PRN Reason: Interaction Checking Stop: 05/27/19 19:38 Last Admin: 05/23/19 19:40 Dose: 120 ml Documented by: Supervising Physician Co-Signing Physician Notes Attending addendum: I have physically seen this patient, have supervised the medical residents activ ities, and agree with the H&P unless as otherwise noted. Assessment and Plan: CAD/hypertension/atrial fibrillation with RVR/stented coronary arteries/increasing bilateral pleural effusions- Continue Coreg 6.25 mg p.o. twice daily and warfarin. PRN Lopressor IV for elevated heart rate. Given Lasix 40 mg IV x1 in ED, follow response and dose future Lasix appropriately. Follow serial CBC with differential, chemistry profile, magnesium level and PT/INR. Remainder of orders and notations as noted. PG Care Time/CCT Total # of Minutes Spent Total Time Spent with Patient: Total time spent is greater than 50% in coordination of care (as documented) at patient's floor/unit and/or counseling patient: Resident Activity Tracking Resident Involvement: Resident Care Provided Care Provided: Adult Hospital Medicine
[2019-05-24] MEDS ORDERED: ONDANSETRON INJ 2 MG/ML 2 ML VIAL IV PRN (00:46)
[2019-05-24] MEDS ORDERED: ACETAMINOPHEN 500 MG TAB PO PRN (00:46)
[2019-05-24] MEDS ORDERED: POLYETHYLENE (MIRALAX) 17 GM PACK PO PRN (00:46)
[2019-05-24] MEDS ORDERED: ALUMINUM/MAGNESIUM SUSP 30 ML UDC PO PRN (00:46)
[2019-05-24] MEDS ORDERED: ALBUTEROL HFA 8 GM INHALER INH PRN (00:46)
[2019-05-24 05:58] LABS: Basophils # (auto) 0.01 K/uL (0-0.2); Basophils % (auto) 0.2 %; Hemoglobin 10.2 g/dL (12.0-16.0); Immature Granulocytes # (auto) 0.02 K/uL (0.00-0.02); Immature Granulocytes % (auto) 0.3 %; Lymphocytes # (auto) 0.79 K/uL (1.2-3.4); Lymphocytes % (auto) 12.7 %; Mean Corpuscular Hgb Conc 30.9 g/dL (32-36); Mean Corpuscular Volume 88.2 fL (80-100); Monocytes # (auto) 0.58 K/uL (0.11-0.59); Monocytes % (auto) 9.3 %; Neutrophils # (auto) 4.84 K/uL (1.4-6.5); Neutrophils % (auto) 77.5 %; Platelet Count 230 K/uL (130-400); RDW Coefficient of Variation 17.3 % (11.5-14.5); RDW Standard Deviation 55.3 fL (36.4-46.3); Red Blood Count 3.74 M/uL (4.2-5.4); White Blood Count 6.24 K/uL (4.8-10.8)
[2019-05-24 06:23] LABS: BUN Creatinine Ratio 27.2 (10-20); Calcium 8.3 mg/dl (8.5-10.1); Creatinine Clr Calc Pharmacy 34.1 ml/min; Est GFR (African American) 62.1; Est GFR (Non-African American) 53.5; Potassium 3.9 mmol/L (3.5-5.1)
[2019-05-24 06:24] LABS: Prothrombin Time 28.4 Seconds (9.0-12.0)
[2019-05-24] MEDS: CARVEDILOL 6.25 MG TAB PO SCH ×2 (08:27→20:52)
[2019-05-24] MEDS: FOLIC ACID 1 MG TAB PO SCH (08:30)
[2019-05-24] MEDS: CHOLECALCIFEROL 1,000 UNITS TAB PO SCH (08:31)
[2019-05-24] MEDS: BENZONATATE 100 MG CAPSULE PO PRN (08:35)
[2019-05-24] MEDS: BUDESONIDE/FORMOTEROL FUMARATE 160/4.5 60 PUFFS/INHALER INH SCH ×2 (08:36→20:54)
[2019-05-24] MEDS ORDERED: ASPIRIN 81 MG ECTAB PO SCH (09:00)
[2019-05-24] MEDS ORDERED: FAMOTIDINE 20 MG in SYRINGE 3 ML IV SCH (09:00)
[2019-05-24] MEDS ORDERED: predniSONE 10 MG TABLET PO SCH (09:00)
--- NOTE | 2019-05-24 10:26 | Gastrointestinal Consultation ---
Date of Consultation May 24, 2019 Assessment & Plan (1) Elevated brain natriuretic peptide (BNP) level: (2) Atrial fibrillation: (3) Cough: Given the clinical picture, suspect cough is related to cardiopulmonary comorbidities rather than GERD. No plan for any invasive GI work up at this time. Can add Pantoprazole 40 mg daily in addition to Famotidine 20 mg BID. Outpatient GI work up could be considered if clinically appropriate in the future. Supervising Physician Co-Signing Physician Notes Agree with CHELLY Blood as above Abd: Soft, NT, ND, +BS Continue current therapy Consider outpatient workup if symptoms persist despite PPI/H2RA therapy History of Present Illness Reason for Consultation: Cough Requesting Physician: Dr. Hale Attending Physician: Estela Griffiths MD History of Present Illness Patient reports a history of a tick bite in February of this year which resulted in hospitalization on 02/19/19. She was diagnosed with anaplasmosis and then developed atrial fibrillation. She has been following with Dr. Nieves since that time and states she was considering undergoing a cardioversion. Prior to undergoing the procedure, she developed a cough which has been worsening over the past few weeks. Was seen by PCP and recommended hospitalization due to pleural effusions on CXR. She was noted on arrival to have a BNP of 4050 and CTA with findings of portal HTN, bilateral pleural effusions with right heart dysfunction. She describes her cough as dry with associated sore throat. She denies any pyrosis, dysphagia, odynophagia, n/v, abdominal pain, bowel habit changes, melena, hematochezia or significant fatigue. GI has been consulted for concern the cough may be related to possible reflux esophagitis. Allergies Allergy/AdvReac Type Severity Reaction Status Date / Time lorazepam AdvReac Severe DELIRIUM Verified 05/23/19 18:29 promethazine AdvReac Severe DELIRIUM Verified 05/23/19 18:29 Home Medications Home Medications Medication Instructions Recorded Confirmed Type aspirin 81 mg PO DAILY 02/19/19 05/23/19 History folic acid 1 mg PO DAILY 02/19/19 05/23/19 History prednisone 5 mg PO QPM 02/19/19 05/23/19 History ranitidine HCl 150 mg PO BID PRN 02/19/19 05/23/19 History simvastatin 40 mg PO PM 02/19/19 05/23/19 History zoledronic oijv-qchbgipj-uobob 5 mg IV YEARLY 02/19/19 05/23/19 History [Reclast] albuterol sulfate 2 puff INHALATION DIRECTED PRN 05/23/19 05/23/19 History benzonatate 100 mg PO DIRECTED PRN 05/23/19 05/23/19 History budesonide-formoterol [Symbicort] 2 puff INHALATION BID 05/23/19 05/23/19 History carvedilol 6.25 mg PO BID 05/23/19 05/23/19 History cefuroxime axetil 250 mg PO BID 05/23/19 05/23/19 History cholecalciferol (vitamin D3) 2,000 unit PO DAILY 05/23/19 05/23/19 History [Vitamin D3] dextromethorphan polistirex [Cough 10 ml PO Q12H PRN 05/23/19 05/23/19 History DM ER] diphenhydramine-acetaminophen 1 tab PO HS PRN 05/23/19 05/23/19 History [Tylenol PM Extra Strength] methotrexate sodium 12.5 mg PO WK 05/23/19 05/23/19 History methylprednisolone [Medrol (Mariano)] 0 mg PO DIRECTED 05/23/19 05/23/19 History ropinirole 0.5 - 1 mg PO HS 05/23/19 05/23/19 History warfarin 2 mg PO DAILY 05/23/19 05/23/19 History Patient History Medical History Compression fracture (Chronic) Anemia Arthritis Breast cancer CAD (coronary artery disease) s/p CABG with stenting Surgical History History of coronary artery bypass graft History of coronary artery stent placement History of mastectomy History of mitral valve replacement History of shoulder surgery Family History Other Family history non-contributory Social History Preferred Language: [place] Communication Ability: Effective Evening Sitter Required: No Beliefs That Will Affect Care: None Current Living Situation: Alone Other Information That Helps Us Care for You: No Feels Safe at Home: Yes Safety Concerns: Feels Safe At This Time Smoking Status: Never smoker Hx Alcohol Use: No Hx Substance Use: No Review of Systems Constitutional: as per Subjective / HPI; no fever and no sweats Eyes: no problem reported Ear, Nose, Mouth, Throat: as per Subjective / HPI Respiratory: as per Subjective / HPI Cardiovascular: + palpitations; no chest pain Gastrointestinal: as per Subjective / HPI Genitourinary: no problem reported Musculoskeletal: + swelling Integumentary: no problem reported Neurologic: no problem reported Psychiatric: no problem reported Physical Exam Constitutional: WD/WN, vitals as above Eyes: EOM intact bilaterally Neck: normal visual inspection Respiratory: normal respiratory effort Auscultation: + rales (bilateral bases) Cardiovascular: Rate/Rhythm: + irregularly irregular Gastrointestinal (Abdomen): normal bowel sounds, soft, nontender, no hepatosplenomegaly Musculoskeletal: lower extremity edema Skin: no rashes, warm and dry Psychiatric: A+Ox3, euthymic affect Results & Data Vital Signs (Past 12 Hours) Vital Signs Temp Pulse Pulse Resp BP Pulse Ox Pulse Ox 05/24/19 07:33 36.7 C 109 H 20 122/81 94 05/24/19 05:00 36.5 C 73 18 105/74 90 05/24/19 01:15 36.7 C 109 H 20 140/92 96 96 05/24/19 01:11 98 H 05/24/19 00:30 36.7 C 115 H 20 140/92 96 05/24/19 00:01 103 H 20 108/78 96 Laboratory Results Abnormal lab results 05/23/19 05/23/19 05/23/19 Range/Units 18:13 18:13 18:21 RBC 3.65 L (4.2-5.4) M/uL Hgb 10.1 L (12.0-16.0) g/dL Hct 32.3 L (37-47) % MCHC 31.3 L (32-36) g/dL RDW Std Deviation 55.2 H (36.4-46.3) fL RDW Coeff of Nina 17.4 H (11.5-14.5) % Lymph # (Auto) 0.74 L (1.2-3.4) K/uL [place] # (Auto) 0.88 H (0.11-0.59) K/uL PT 29.4 H (9.0-12.0) Seconds INR 3.1 H (0.9-1.1) Chloride 112 H (98-107) mmol/L BUN 32 H (7-18) mg/dl BUN/Creatinine Ratio 29.4 H (10-20) Glucose 119 H (70-99) mg/dl Calcium (8.5-10.1) mg/dl Phosphorus 2.4 L (2.5-4.9) mg/dl NT-Pro-B Natriuret Pep 4050 H (0-1800) pg/ml Total Protein 6.3 L (6.4-8.2) gm/dl Albumin 3.0 L (3.4-5.0) gm/dl 05/24/19 05/24/19 05/24/19 Range/Units 05:35 05:35 05:35 RBC 3.74 L (4.2-5.4) M/uL Hgb 10.2 L (12.0-16.0) g/dL Hct 33.0 L (37-47) % MCHC 30.9 L (32-36) g/dL RDW Std Deviation 55.3 H (36.4-46.3) fL RDW Coeff of Nina 17.3 H (11.5-14.5) % Lymph # (Auto) 0.79 L (1.2-3.4) K/uL [place] # (Auto) (0.11-0.59) K/uL PT 28.4 H (9.0-12.0) Seconds INR 3.0 H (0.9-1.1) Chloride 109 H (98-107) mmol/L BUN 27 H (7-18) mg/dl BUN/Creatinine Ratio 27.2 H (10-20) Glucose 120 H (70-99) mg/dl Calcium 8.3 L (8.5-10.1) mg/dl Phosphorus (2.5-4.9) mg/dl NT-Pro-B Natriuret Pep (0-1800) pg/ml Total Protein (6.4-8.2) gm/dl Albumin (3.4-5.0) gm/dl PG Care Time/CCT Total # of Minutes Spent Total Time Spent with Patient: Total time spent is greater than 50% in coordination of care (as documented) at patient's floor/unit and/or counseling patient: (1) Atrial fibrillation Atrial fibrillation type: paroxysmal Qualified Code(s): I48.0 - Paroxysmal atrial fibrillation
[2019-05-24] MEDS: DEXTROMETHORPHAN POLYMR COMPLX 30 MG/5 ML UDP PO PRN (12:51)
--- NOTE | 2019-05-24 13:42 | Medical Student Progress Note ---
Date of Service May 24, 2019 Assessment & Plan (1) Acute bacterial bronchitis: Cough did not improve with administration of Lasix 40 mg IV. Cough likely bacterial and inflammatory in nature. Administering azithromycin 500 mg IV daily. Continue Dextramethorphan 60 mg PO q12h PRN, Benzonotate 100 mg PO TID PRN, Albuterol 2 puffs q4h PRN, Budesonide/Formoterol 2 puffs BID GI Consult suspected cough is related to cardiopulmonary comorbidities rather than GERD. Consult advised the addition of Pantoprazole 40 mg qAM + Famotidine 20 mg BID. Also advised outpatient GI work up if clinically appropriate in the future. Appreciate the consult. (2) Diastolic heart failure: Lasix improved LE swelling. Administering lower dose of Lasix 20 mg PO BID for removal of excess fluid. (3) Bilateral pleural effusion: Small bilateral pleural effusions found on CXR. Stable from previous studies. Follow-up CXR in one month to check for worsening. (4) Elevated brain natriuretic peptide (BNP) level: CT shows mild elements of diastolic HF. Starting lower dose of Lasix to reduce fluid levels. (5) Atrial fibrillation: Consistent A. fib with a bought of VTach this morning. Continue carvedilol (6.25 mg PO BID) and Warfarin 2 mg. Patient states she has plans for outpatient cardioversion at the end of the month. Atrial fibrillation type: paroxysmal Qualified Code(s): I48.0 - Paroxysmal atrial fibrillation (6) DVT prophylaxis: See above for Atrial fibrillation. (7) CAD (coronary artery disease): Continue Carvedilol (6.25 mg PO BID) and Simvastatin (40 mg), ASA 81. Order lipids. Associated angina: without angina Coronary Disease-Associated Artery/Lesion type: unspecified vessel or lesion type [place] vs. transplanted heart: [place] heart Qualified Code(s): I25.10 - Atherosclerotic heart disease of [place] coronary artery without angina pectoris (8) Anemia: Continue to monitor. Present at admission. Continue folic acid 1 mg PO daily. Anemia type: unspecified type Qualified Code(s): D64.9 - Anemia, unspecified (9) Chronic back pain: Patient does not complain of pain. Has multiple old compression fractures. Continue Vitamin D, Prednisone (on taper currently: 30-20-10, then restart 5mg daily). If severe, then can do lidocaine patches, scheduled Tylenol, which has worked well in past. Has seen Dr. Mathew in the past for compression fractures. Subjective ER Course: CXR- Cardiomegaly and small b/l pleural effusions. 4 cm opacity at the R lateral lung base with consideration for PNA, atelectasis, or pulmonary infarct. Chest CTA- No evidence of acute PE. Increasing bilateral pleural effusions. Evidence of right heart dysfunction. Pulmonary HTN. Stable 21 mm pleural-based nodule at the right lung base. Multiple thoracic vertebral body compression fractures Labs: BNP 4050, Phos 2.4. Otherwise unremarkable. Pt given IV Lasix 40 mg and PO Carvedilol 6.25 mg 9/: 79 y/o F with PMH HTN, HLD, CAD s/p CABG w/stenting, Anemia, Afib, NIIDM2, Anxiety, and Chronic Back Pain presents to [facility] with dry cough that began one week ago along with some head congestion. Was seen by PCP who prescribed tessalon perles and decongestant, which did not help. Pt went back to PCP office yesterday and was given neb breathing tx, which pt did not seem to think helped very much. Pt sent to get blood work and CXR today. Per her results, there was fluid in her lungs so they recommended she come here. Pt additionally admits to LE Swelling, BAHENA, Fatigue, and 5 lb wt gain over last month. She is normally very active with activities including gardening, quilting club, and never had issues before. Denies F/N/V/D, rhinorrhea, sinus tenderness. Admits poor diet of mostly sandwiches and canned soups. 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 Has also been getting IV iron infusion one time. Pt with no other acute concerns or complaints. 05/24: Patient is continuously coughing, making conversation difficult. Nurse administered Delsym early during exam and seems to have brought her relief. Patient also endorses hot tea as bringing her relief. Salty foods make the cough worse. She does not complain of any general pain, but says her throat gets a little sore after all of the coughing (rated 3/10). Nurse states patient gets tachycardic when her cough is not well controlled. 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 She is happy that her swelling has gone down and her legs and feet are back to their baseline size. Patient endorses sore throat, fatigue, and dyspnea with and without exertion. She also mentioned having a stuffy nose when this cough began last week that has since resolved. Patient denies H/A, visual changes, dry eye, nosebleeds, dry mouth, change in appetite, heartburn, weakness, chest pain, palpitations, syncope, stomach pain, N/V, diarrhea, constipation, urinary and bowel changes, paresthesias in the extremities, swelling, or joint pain. Physical Exam Constitutional: WD/WN, vitals as above + acute distress and cooperative Eyes: PERRL, conjunctivae normal, anicteric sclerae normal accommodation and EOM intact bilaterally ENMT: external ear and nose normal, oropharynx normal Nose: no nasal disc harge Mouth: oral mucous membranes not dry Neck: trachea midline, no thyromegaly normal visual inspection; neck nontender Respiratory: normal respiratory effort and + tactile fremitus Auscultation: + diminished lung sounds and + rales (bilateral bases) Cardiovascular: Rate/Rhythm: + irregularly irregular Gastrointestinal (Abdomen): normal bowel sounds, soft, nontender, no hepatosplenomegaly Musculoskeletal: Head/Neck/Chest: + head abnormal to inspection, normocephalic, head atraumatic and neck supple Spine: + kyphosis Extremities: no cyanosis and no clubbing Skin: no rashes, warm and dry Neurologic: CN's II-XI intact bilaterally (appear to be) Psychiatric: A+Ox3, euthymic affect Eye Contact: good eye contact Affect: euthymic affect Lymphatic: no lymphedema Results & Data Medications Administered Aspirin (Ecotrin Ectab) 81 mg PO DAILY CESARIO Stop: 06/23/19 08:59 Last Admin: 05/24/19 08:28 Dose: 81 mg Documented by: [id number] Benzonatate (Tessalon Perle) 100 mg PO TID PRN PRN Reason: Cough Stop: 06/23/19 00:45 Last Admin: 05/24/19 08:35 Dose: 100 mg Documented by: [id number] Budesonide/Formoterol Fumarate (Symbicort 160mcg/4.5mcg) 2 puffs INH BID [facility] Stop: 06/23/19 08:59 Last Admin: 05/24/19 08:36 Dose: 2 puffs Documented by: [id number] Carvedilol (Coreg) 6.25 mg PO BID [facility] Stop: 06/23/19 08:59 Last Admin: 05/24/19 08:27 Dose: 6.25 mg Documented by: [id number] Dextromethorphan Polymer Complex (Delsym) 60 mg PO Q12H PRN PRN Reason: Cough Stop: 06/23/19 00:45 Last Admin: 05/24/19 12:51 Dose: 60 mg Documented by: [id number] Folic Acid (Folvite) 1 mg PO DAILY [facility] Stop: 06/23/19 08:59 Last Admin: 05/24/19 08:30 Dose: 1 mg Documented by: [id number] Prednisone (Prednisone) 30 mg PO QAM [facility]; Taper Stop: 05/26/19 23:44 Last Admin: 05/24/19 08:33 Dose: 30 mg Documented by: [id number] Vitamin D (Vitamin D3) 2,000 units PO DAILY [facility] Stop: 06/23/19 08:59 Last Admin: 05/24/19 08:31 Dose: 2,000 units Documented by: [id number] Supervising Attestation I personally interviewed and examined the patient. I agree with history of present illness and physical exam mentioned above, I also performed my own history taking and examination. Past medical history and review of system has been obtained by myself I reviewed all pertinent labs and studies Reviewed current medications I discussed and formulated of the assessment and plan mentioned above. Please refer to the Summary mentioned below. 79-year-old female with past medical history of essential hypertension, dyslipidemia, CAD status post CABG, also status post stenting, anemia, A. fib, [id number] diabetes mellitus, anxiety, chronic back pain who has been having dry cough for 2 weeks, failed outpatient prednisone, reported gaining 5 pounds, increased lower extremity swelling. Patient received 40 mg of Lasix in the ED and diuresed well. Continued to have dry cough, likely bronchospastic element also developed A. fib with RVR heart rate ranging from 1 40-1 20 while on the floor Received 5 mg of Lopressor IV For her acute CHF She had a 2D echo done on 02/2019 that showed mild asymmetric left ventricular hypertrophy, normal ejection fraction, mild mitral regurgitation, mild aortic regurgitation, moderate tricuspid regurgitation, right ventricular systolic pressure was elevated 30 to 40 mmHg with moderate mitral annular calcification. Acute diastolic congestive heart failure Continue I/O, daily weight, Lasix 10 mg IV twice daily For her bronchospasm DuoNeb as needed wheezing For bacterial bronchitis Azithromycin IV 500 mg daily Coumadin coagulopathy with INR of 3 Due to potential interaction with azithromycin which was not started yet, I expect INR even to go further up, will give 2.5 mg vitamin K IV, also will hold aspirin for now General Appearance: not in acute distress Eyes: normal Sclerae, extraocular muscle intact ENT: hearing grossly normal Neck: supple Respiratory/Chest: Harsh vesicular breathing, bilateral Rales and scattered rhonchi Cardiovascular: regular rate, rhythm, no murmur Abdomen: non tender, soft, no masses Extremities: no edema musculoskeletal: no significant swelling or inflammation in any joint Neurologic/Psychiatric: Awake alert oriented times place and person moves all extremities sensation intact cranial nerves II-12 appear to be intact Skin: normal color, warm/dry, no rash Estela Griffiths MD, [facility] [place] [place]
[2019-05-24] MEDS ORDERED: WARFARIN SOD 2 MG TAB PO SCH (16:00)
[2019-05-24] MEDS ORDERED: METOPROLOL TARTRATE 1 MG/ML VIAL IV STA (18:30)
[2019-05-24] MEDS ORDERED: PHYTONADIONE 2.5 MG in SODIUM CHLORIDE 0.9% 50 ML IV ONE (18:35)
--- NOTE | 2019-05-24 18:45 | Hospitalist Progress Note ---
Date of Service My student attestation for billing This note was placed for billing purposes, it is an extension to my previous note. Please refer to the full note that was generated by me and the medical student for the same day for clinical information. May 24, 2019 Results & Data Vital Signs (Past 12 Hours) Vital Signs Temp Pulse Pulse Resp BP BP Pulse Ox 05/24/19 18:09 135 H 18 130/93 05/24/19 18:08 124 H 18 146/98 H 97 05/24/19 18:07 124 H 18 155/116 H 96 05/24/19 16:32 118 H 05/24/19 16:30 36.7 C 109 H 18 142/103 H 96 05/24/19 11:30 36.7 C 112 H 20 132/91 95 05/24/19 07:33 36.7 C 109 H 20 122/81 94 PG Care Time/CCT Total # of Minutes Spent Total Time Spent with Patient: Total time spent is greater than 50% in coordination of care (as documented) at patient's floor/unit and/or counseling patient:
--- NOTE | 2019-05-24 19:20 | Communication Note ---
Date of Service: May 24, 2019 Joaquina key [email or web address] Started Cardizem drip and will transfer to [facility]
[2019-05-24] MEDS: methylPREDNISolone 30 MG in SYRINGE 0 ML IV SCH (19:40)
[2019-05-24] MEDS: FUROSEMIDE 10 MG in SYRINGE 0 ML IV SCH (20:49)
[2019-05-24] MEDS: AZITHROMYCIN 500 MG in DEXTROSE 5% 250 ML IV SCH (20:49)
[2019-05-24] MEDS: SIMVASTATIN 40 MG TAB PO SCH (20:51)
[2019-05-24] MEDS: ROPINIROLE HCL 1 MG TABLET PO SCH (20:53)
[2019-05-24] MEDS: FAMOTIDINE 20 MG TAB PO SCH (20:54)
[2019-05-24] MEDS ORDERED: dilTIAZem HCl 125 MG in DEXTROSE 5% 100 ML IV SCH (21:20)
[2019-05-24] MEDS ORDERED: dilTIAZem HCl 5 MG/ML 5 ML VIAL IV STA (21:20)
[2019-05-24] MEDS: ACETAMINOPHEN 325 MG TAB PO PRN (22:45)
[2019-05-25] MEDS: DEXTROMETHORPHAN POLYMR COMPLX 30 MG/5 ML UDP PO PRN ×2 (01:28→21:28)
[2019-05-25] MEDS: methylPREDNISolone 30 MG in SYRINGE 0 ML IV SCH ×4 (01:29→18:11)
[2019-05-25] MEDS: CARVEDILOL 6.25 MG TAB PO SCH (07:56)
[2019-05-25] MEDS: CHOLECALCIFEROL 1,000 UNITS TAB PO SCH (07:56)
[2019-05-25] MEDS: BUDESONIDE/FORMOTEROL FUMARATE 160/4.5 60 PUFFS/INHALER INH SCH (07:58)
[2019-05-25] MEDS: PANTOprazole 40 MG TAB PO SCH (07:58)
[2019-05-25] MEDS: FAMOTIDINE 20 MG TAB PO SCH ×2 (07:58→20:34)
[2019-05-25] MEDS: FOLIC ACID 1 MG TAB PO SCH (07:58)
[2019-05-25] MEDS: BENZONATATE 100 MG CAPSULE PO PRN (07:59)
--- NOTE | 2019-05-25 09:27 | XRay Report ---
XR chest 1V portable CLINICAL HISTORY: sob COMPARISON STUDY: 05/23/2019 FINDINGS: There are postsurgical changes of a midline sternotomy and valvular replacement. The heart remains enlarged. There are small pleural effusions. There is been resolution of previously identifie d focal right basilar airspace opacity. There is mild diffuse elevation of interstitium, similar to t he prior study. IMPRESSION: 1. Cardiomegaly and small pleural effusions 2. Interval resolution of the previously identified focal right basilar airspace opacity Electronically signed by: Yusef Teran M.D. 05/25/2019 9:25 AM
[2019-05-25] MEDS: AZITHROMYCIN 500 MG in DEXTROSE 5% 250 ML IV SCH (09:58)
[2019-05-25] MEDS: FUROSEMIDE 10 MG in SYRINGE 0 ML IV SCH ×2 (10:07→20:31)
--- NOTE | 2019-05-25 14:01 | Hospitalist Progress Note ---
Date of Service May 25, 2019 Assessment & Plan (1) Acute bacterial bronchitis: Appears to be atypical in presentation but extensive enough to initiate azithromycin on 05/24 And ceftriaxone on 05/25 We will continue to monitor We will order procalcitonin Ordered sputum culture, respiratory therapist can induce sputum if needed (2) Bilateral pleural effusion: Small bilateral, continue to observe Possibly secondary to diastolic congestive heart (3) Cough: As above, Suspected pertussis Pertussis DNA was sent Placed on isolation Continue azithromycin (4) Atrial fibrillation: With RVR, likely secondary to cough/bronchitis Ordered Cardizeumberto hall Switched her carvedilol to metoprolol for better rate control as it appears she responded much better to Lopressor 5 mg IV x1 (5) Diastolic heart failure: Acute on chronic diastolic congestive heart failure Low-dose Lasix 10 mg IV twice daily Calculate I/O Daily weight she had a 2D echo done on 02/2019 that showed mild asymmetric left ventricular hypertrophy, normal ejection fraction, mild mitral regurgitation, mild aortic regurgitation, moderate tricuspid regurgitation, right ventricular systolic pressure was elevated 30 to 40 mmHg with moderate mitral annular calcification. Subjective Said that her cough appears to be improved but still coughing No sputum production No chest pain or shortness of breath Review of Systems Review of Systems: Review of system Constitutional: No fever / no chills / no sweats / no weakness / no fatigue Eyes: no blurring of vision / no eye pain / no discharge / no redness ENT: no hearing loss / no epistaxis /no swallowing problems Respiratory: Significant dry hacking/ no wheezing / no SOB / no hemoptysis Cardiovascular: no Chest pain / no lower extremity edema / no palpitation Abdomen: no pain / no nausea / no vomiting / no constipation Musculoskeletal: no joint pain / no muscle pain / no joint swelling Genitourinary: no dysuria / no incontinence / no urinary retention Neurologic: no focal weakness / no numbness/tingling / no ataxia Psychiatric: no depression symptoms / no anxiety / no insomnia Endocrine: no excessive thirst / no excessive urination Hematologic: no abnormal bleeding / no bruising / no LN swelling Skin: No rash / no pallor Physical Exam Physical Exam: Physical examination General patient appears to be comfortable, not in acute distress HEENT: Atraumatic , normocephalic /no jaundice /no pallor /anicteric /no dry mucous membrane /normal external ear inspection Neck: Supple /no swelling /central trach Heart: S1/S2 normal/regular rate and rhythm/no gallop /no rub /no murmur Lungs: Clear to auscultation bilaterally/normal chest with expansion/no rhonchi/no rales/no wheezing/no use of accessory muscles of respiration Abdomen: Soft/nontender/no guarding/no rebound/no organomegaly/no pulsatile mass Musculoskeletal: No swelling/no edema/no tenderness/normal range of motion Neuro exam: Awake alert oriented 3/cranial nerves II through XII appear to be intact/sensation intact/moves all extremities/no abnormal movements Psychiatric evaluation: No depressed mood/normal affect Skin: No rash on exposed skin area/no erythema Extremity: Normal pulse/no pitting edema/no clubbing or cyanosis Endocrine/lymphatic: No obvious lymphadenopathy /no lymphedema Results & Data Vital Signs (Past 12 Hours) Vital Signs Temp Pulse Resp BP Pulse Ox 05/25/19 10:50 36.7 C 116 H 19 129/90 94 05/25/19 07:30 36.6 C 122 H 16 107/55 L 95 05/25/19 04:17 36.6 C 105 H 20 156/86 H 94 PG Care Time/CCT Total # of Minutes Spent Total Time Spent with Patient: Total time spent is greater than 50% in coordination of care (as documented) at patient's floor/unit and/or counseling patient: (1) Atrial fibrillation Atrial fibrillation type: paroxysmal Qualified Code(s): I48.0 - Paroxysmal atrial fibrillation
[2019-05-25 14:58] LABS: Hematocrit (blood only) 34.1 % (37-47); Hemoglobin 10.7 g/dL (12.0-16.0); Mean Corpuscular Volume 87.2 fL (80-100); Mean Platelet Volume 9.3 fL (7.4-10.4); Platelet Count 241 K/uL (130-400); RDW Coefficient of Variation 17.1 % (11.5-14.5); RDW Standard Deviation 53.8 fL (36.4-46.3); Red Blood Count 3.91 M/uL (4.2-5.4)
[2019-05-25 14:59] LABS: Mean Corpuscular Hgb Conc 31.4 g/dL (32-36)
[2019-05-25] MEDS: cefTRIAXone SODIUM 1,000 MG in DEXTROSE 5% 50 ML IV SCH (15:01)
[2019-05-25] MEDS: ALBUT/IPRATROP 3MG/0.5MG NEB 3 ML VIAL NEB SCH ×2 (15:08→19:29)
[2019-05-25 15:15] LABS: BUN Creatinine Ratio 25.8 (10-20); Calcium 8.4 mg/dl (8.5-10.1); Creatinine Clr Calc Pharmacy 25.2 ml/min; Est GFR (African American) 42.8; Est GFR (Non-African American) 36.9; Magnesium 2.3 mg/dl (1.8-2.4); Potassium 4.1 mmol/L (3.5-5.1)
[2019-05-25] MEDS: LACTOBACILLUS ACIDOPHILUS 1 GM PACK PO SCH (15:35)
[2019-05-25] MEDS: METOPROLOL TARTRATE 25 MG TAB PO SCH ×2 (15:35→20:34)
[2019-05-25] MEDS: SIMVASTATIN 40 MG TAB PO SCH (20:33)
[2019-05-25] MEDS: ROPINIROLE HCL 1 MG TABLET PO SCH (20:33)
[2019-05-26] MEDS: methylPREDNISolone 30 MG in SYRINGE 0 ML IV SCH ×4 (02:09→18:29)
[2019-05-26 06:50] LABS: Hematocrit (blood only) 35.2 % (37-47); Hemoglobin 10.9 g/dL (12.0-16.0); Mean Corpuscular Volume 87.3 fL (80-100); Mean Platelet Volume 9.7 fL (7.4-10.4); Platelet Count 252 K/uL (130-400); RDW Coefficient of Variation 17.1 % (11.5-14.5); RDW Standard Deviation 54.4 fL (36.4-46.3); Red Blood Count 4.03 M/uL (4.2-5.4); White Blood Count 7.19 K/uL (4.8-10.8)
[2019-05-26 07:02] LABS: INR 1.2 (0.9-1.1); Prothrombin Time 11.8 Seconds (9.0-12.0)
[2019-05-26] MEDS: ALBUT/IPRATROP 3MG/0.5MG NEB 3 ML VIAL NEB SCH ×4 (07:03→19:21)
[2019-05-26 07:28] LABS: Alanine Aminotransferase 80 U/L (12-78); Aspartate Aminotransferase 44 U/L (15-37); BUN Creatinine Ratio 28.7 (10-20); Blood Urea Nitrogen 32 mg/dl (7-18); Calcium 8.4 mg/dl (8.5-10.1); Carbon Dioxide 26 mmol/L (21-32); Chloride 105 mmol/L (98-107); Creatinine Clr Calc Pharmacy 31.2 ml/min; Est GFR (African American) 54.7; Est GFR (Non-African American) 47.2; Glucose 122 mg/dl (70-99); Magnesium 2.4 mg/dl (1.8-2.4); Potassium 3.5 mmol/L (3.5-5.1); Sodium 139 mmol/L (136-145)
[2019-05-26 07:33] LABS: Albumin Globulin Ratio 0.9 (0.9-2); Alkaline Phosphatase 74 U/L (45-117); Bilirubin,Total 0.6 mg/dl (0.2-1); Globulin 3.5 gm/dl (2.5-4.0); Total Protein 6.5 gm/dl (6.4-8.2); Troponin I < 0.015 ng/ml (0-0.045)
[2019-05-26] MEDS: CHOLECALCIFEROL 1,000 UNITS TAB PO SCH (07:55)
[2019-05-26] MEDS: FOLIC ACID 1 MG TAB PO SCH (07:55)
[2019-05-26] MEDS: BENZONATATE 100 MG CAPSULE PO PRN (07:55)
[2019-05-26] MEDS: FUROSEMIDE 10 MG in SYRINGE 0 ML IV SCH ×2 (07:55→20:11)
[2019-05-26] MEDS: LACTOBACILLUS ACIDOPHILUS 1 GM PACK PO SCH ×3 (07:55→18:29)
[2019-05-26] MEDS: METOPROLOL TARTRATE 25 MG TAB PO SCH ×2 (07:55→20:03)
[2019-05-26] MEDS: PANTOprazole 40 MG TAB PO SCH (07:56)
[2019-05-26] MEDS: FAMOTIDINE 20 MG TAB PO SCH ×2 (07:56→20:04)
[2019-05-26] MEDS: AZITHROMYCIN 500 MG in DEXTROSE 5% 250 ML IV SCH (08:02)
[2019-05-26] MEDS: DEXTROMETHORPHAN POLYMR COMPLX 30 MG/5 ML UDP PO PRN ×2 (09:16→20:06)
[2019-05-26] MEDS: cefTRIAXone SODIUM 1,000 MG in DEXTROSE 5% 50 ML IV SCH (12:49)
--- NOTE | 2019-05-26 17:15 | Hospitalist Progress Note ---
Date of Service May 26, 2019 Assessment & Plan (1) Acute bacterial bronchitis: Appears to be atypical in presentation but extensive enough to initiate azithromycin on 05/24 And ceftriaxone on 05/25 We will continue to monitor Follow-up procalcitonin Ordered sputum culture, respiratory therapist can induce sputum if needed, unable to give the same Every time tries to take a deep breath or talk goes into prolonged coughing spell Feels that that is something in her throat Consulted ENT for visualization of vocal cords Started her on a statin swish for suspected oral Ordered bedside swallow eval (2) Bilateral pleural effusion: Small bilateral, continue to observe Possibly secondary to diastolic congestive heart (3) Cough: As above, Suspected pertussis Pertussis DNA was sent Placed on isolation Continue azithromycin (4) Atrial fibrillation: With RVR, likely secondary to cough/bronchitis Ordered Cardizem drip Switched her carvedilol to metoprolol for better rate control as it appears she responded much better to Lopressor 5 mg IV x1 Can increase the dose of oral metoprolol as needed (5) Diastolic heart failure: Acute on chronic diastolic congestive heart failure Low-dose Lasix 10 mg IV twice daily Calculate I/O Daily weight she had a 2D echo done on 02/2019 that showed mild asymmetric left ventricular hypertrophy, normal ejection fraction, mild mitral regurgitation, mild aortic regurgitation, moderate tricuspid regurgitation, right ventricular systolic pressure was elevated 30 to 40 mmHg with moderate mitral annular calcification. 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 Feeling something in her throat Review of Systems Review of Systems: Review of system Constitutional: No fever / no chills / no sweats / no weakness /slight fatigue Eyes: no blurring of vision / no eye pain / no discharge / no redness ENT: no hearing loss / no epistaxis /no swallowing problems Respiratory: Significant cough especially when she tries to talk, including long cough spells, shortness of breath/ no hemoptysis Cardiovascular: no Chest pain / no lower extremity edema / no palpitation Abdomen: no pain / no nausea / no vomiting / no constipation Musculoskeletal: no joint pain / no muscle pain / no joint swelling Genitourinary: no dysuria / no incontinence / no urinary retention Neurologic: no focal weakness / no numbness/tingling / no ataxia Psychiatric: no depression symptoms / no anxiety / no insomnia Endocrine: no excessive thirst / no excessive urination Hematologic: no abnormal bleeding / no bruising / no LN swelling Skin: No rash / no pallor Physical Exam Physical Exam: Physical examination General patient appears to be comfortable, not in acute distress HEENT: Atraumatic , normocephalic /no jaundice /no pallor /anicteric /no dry mucous membrane /normal external ear inspection suspected oral thrush Neck: Supple /no swelling /central trach Heart: S1/S2 normal/regular rate and rhythm/no gallop /no rub /no murmur Lungs: Clear to auscultation bilaterally but every time she tries to take a deep breath she starts a coughing spell. Abdomen: Soft/nontender/no guarding/no rebound/no organomegaly/no pulsatile mass Musculoskeletal: No swelling/no edema/no tenderness/normal range of motion Neuro exam: Awake alert oriented 3/cranial nerves II through XII appear to be intact/sensation intact/moves all extremities/no abnormal movements Psychiatric evaluation: No depressed mood/normal affect Skin: No rash on exposed skin area/no erythema Extremity: Normal pulse/no pitting edema/no clubbing or cyanosis Results & Data Vital Signs (Past 12 Hours) Vital Signs Temp Pulse Resp BP Pulse Ox 05/26/19 16:19 36.6 C 101 H 16 133/80 92 05/26/19 15:23 96 H 18 94 05/26/19 11:21 36.9 C 103 H 19 110/74 94 05/26/19 11:20 116 H 18 95 05/26/19 08:00 36.6 C 105 H 18 150/111 H 95 05/26/19 07:04 84 16 97 PG Care Time/CCT Total # of Minutes Spent Total Time Spent with Patient: Total time spent is greater than 50% in coordination of care (as documented) at patient's floor/unit and/or counseling patient: (1) Atrial fibrillation Atrial fibrillation type: paroxysmal Qualified Code(s): I48.0 - Paroxysmal atrial fibrillation
[2019-05-26] MEDS: NYSTATIN SUSP 500,000 U/5 ML UDC PO SCH ×2 (18:28→20:06)
[2019-05-26] MEDS: WARFARIN SOD 2 MG TAB PO SCH (18:28)
[2019-05-26] MEDS: ACETAMINOPHEN 325 MG TAB PO PRN (20:01)
[2019-05-26] MEDS: SIMVASTATIN 40 MG TAB PO SCH (20:05)
[2019-05-26] MEDS: ROPINIROLE HCL 1 MG TABLET PO SCH (20:05)
[2019-05-27] MEDS: methylPREDNISolone 30 MG in SYRINGE 0 ML IV SCH ×2 (01:41→06:21)
[2019-05-27 07:05] LABS: Hematocrit (blood only) 36.9 % (37-47); Hemoglobin 11.5 g/dL (12.0-16.0); Mean Corpuscular Hgb Conc 31.2 g/dL (32-36); Mean Corpuscular Volume 87.6 fL (80-100); Mean Platelet Volume 9.3 fL (7.4-10.4); Nucleated RBC # (auto) 0.02 K/uL (0-0); Nucleated RBC % (auto) 0.2 %; Platelet Count 273 K/uL (130-400); RDW Coefficient of Variation 16.9 % (11.5-14.5); RDW Standard Deviation 53.5 fL (36.4-46.3); Red Blood Count 4.21 M/uL (4.2-5.4); White Blood Count 8.98 K/uL (4.8-10.8)
[2019-05-27] MEDS: ALBUT/IPRATROP 3MG/0.5MG NEB 3 ML VIAL NEB SCH ×4 (07:07→19:34)
[2019-05-27 07:12] LABS: INR 1.5 (0.9-1.1); Prothrombin Time 14.8 Seconds (9.0-12.0)
[2019-05-27 07:37] LABS: BUN Creatinine Ratio 28.3 (10-20); Calcium 8.1 mg/dl (8.5-10.1); Creatinine Clr Calc Pharmacy 29.8 ml/min; Est GFR (African American) 52.4; Est GFR (Non-African American) 45.2; Potassium 3.4 mmol/L (3.5-5.1)
[2019-05-27] MEDS: PANTOprazole 40 MG TAB PO SCH (08:05)
[2019-05-27] MEDS: FAMOTIDINE 20 MG TAB PO SCH (08:05)
[2019-05-27] MEDS: FUROSEMIDE 10 MG in SYRINGE 0 ML IV SCH (08:05)
[2019-05-27] MEDS: CHOLECALCIFEROL 1,000 UNITS TAB PO SCH (08:06)
[2019-05-27] MEDS: FOLIC ACID 1 MG TAB PO SCH (08:07)
[2019-05-27] MEDS: METOPROLOL TARTRATE 25 MG TAB PO SCH (08:07)
[2019-05-27] MEDS: NYSTATIN SUSP 500,000 U/5 ML UDC PO SCH ×3 (08:07→18:29)
[2019-05-27] MEDS: LACTOBACILLUS ACIDOPHILUS 1 GM PACK PO SCH ×3 (08:07→18:29)
[2019-05-27] MEDS: AZITHROMYCIN 500 MG in DEXTROSE 5% 250 ML IV SCH (08:15)
[2019-05-27] MEDS ORDERED: METOPROLOL TARTRATE 25 MG TAB PO STA (08:48)
--- NOTE | 2019-05-27 12:20 | Pulmonary Consultation ---
Date of Consultation May 27, 2019 Assessment & Plan (1) Cough: The cause of the cough may be multifactorial. It did have an acute onset. The elevated proBNP would make one think it may be related to congestive heart failure. She has a history of normal systolic function. The neck veins are very distended. Thus she may have diastolic dysfunction. In addition she may have an acute bronchitis. It is difficult to assess that she is now significantly better according to the patient. She did not describe having a long-term cough. Mitigating against acute CHF is the fact that her proBNP in February was similar and actually higher than what it is currently. Suggest stopping methylprednisolone and starting prednisone 40 mg/day. Consider stopping ceftriaxone and placing her on Ceftin for a few more days up to a total of 7. According to the patient she is dramatically better. She may be able to be discharged soon. She should follow up with her own armed security guard and placement manager. (2) Pleural effusion: The rapid improvement in the chest x-ray from the date of admission until 2 days later with suggest that the pleural effusion likely is improved. She still ultimately needs follow-up regarding this. (3) Pulmonary hypertension: Treat underlying cardiac and respiratory problems as currently. (4) Multiple lung nodules on CT: She will ultimately need a follow-up CAT scan. She is followed by a placement manager from [place]. History of Present Illness Attending Physician: Damion Navarrete History of Present Illness The patient is being seen at the request of Dr. Navarrete regarding cough and shortness of breath. She is a 79-year-old female who came to the emergency room on May 23. She had a one-week history of cough and shortness of breath. She had gone to her primary physician in [place]. He did some blood work and told her that her lungs were full of fluid and she should go to the ER. She states that she had been having head congestion and postnasal drip. Her symptoms for for 1 week prior to admission. She was having frequent cough with clear mucus. It was no hemoptysis. She denies chills fevers or sweats. The patient states that she has had a lot of diuresis since she was admitted. She d enied a prior history of lung problems. However upon close questioning she acknowledges that she sees a placement manager, Dr. Hong in [place]. She actually had a needle biopsy of a right lung nodule approximately August 2018. She states it was benign. Her medicine list suggest she has been taking some inhalers including albuterol and Symbicort. At the present time the patient states she is "90% better ". Her cough today is much less. She is not feeling short of breath at all. The patient is anxious for discharge. She states her nasal and sinus symptoms have resolved. The patient has never smoked. 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 She did have a tick bite in February. 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 She feels that a lot of problems seemingly are related to when she got sick then. She has a recent history of atrial fibrillation. She does follow with a armed security guard in [place] for this. Other significant past medical history includes breast cancer diagnosed approximately 1987. She had a mastectomy done and she had chemotherapy. To the best of her knowledge there is never been any recurrence. Her family history includes father dying in his 70s with heart problems. Mother age 83 with heart problems and dementia. Allergies Allergy/AdvReac Type Severity Reaction Status Date / Time lorazepam AdvReac Severe DELIRIUM Verified 05/23/19 18:29 promethazine AdvReac Severe DELIRIUM Verified 05/23/19 18:29 Home Medications Home Medications Medication Instructions Recorded Confirmed Type aspirin 81 mg PO DAILY 02/19/19 05/23/19 History folic acid 1 mg PO DAILY 02/19/19 05/23/19 History prednisone 5 mg PO QPM 02/19/19 05/23/19 History ranitidine HCl 150 mg PO BID PRN 02/19/19 05/23/19 History simvastatin 40 mg PO PM 02/19/19 05/23/19 History zoledronic [id number]-lauzascs-prszp 5 mg IV YEARLY 02/19/19 05/23/19 History [Reclast] albuterol sulfate 2 puff INHALATION DIRECTED PRN 05/23/19 05/23/19 History benzonatate 100 mg PO DIRECTED PRN 05/23/19 05/23/19 History budesonide-formoterol [Symbicort] 2 puff INHALATION BID 05/23/19 05/23/19 History carvedilol 6.25 mg PO BID 05/23/19 05/23/19 History cefuroxime axetil 250 mg PO BID 05/23/19 05/23/19 History cholecalciferol (vitamin D3) 2,000 unit PO DAILY 05/23/19 05/23/19 History [Vitamin D3] dextromethorphan polistirex [Cough 10 ml PO Q12H PRN 05/23/19 05/23/19 History DM ER] diphenhydramine-acetaminophen 1 tab PO HS PRN 05/23/19 05/23/19 History [Tylenol PM Extra Strength] methotrexate sodium 12.5 mg PO WK 05/23/19 05/23/19 History methylprednisolone [Medrol (Mariano)] 0 mg PO DIRECTED 05/23/19 05/23/19 History ropinirole 0.5 - 1 mg PO HS 05/23/19 05/23/19 History warfarin 2 mg PO DAILY 05/23/19 05/23/19 History Patient History Medical History Compression fracture (Chronic) Anemia Arthritis Breast cancer CAD (coronary artery disease) s/p CABG with stenting Surgical History History of coronary artery bypass graft History of coronary artery stent placement History of mastectomy History of mitral valve replacement History of shoulder surgery Family History Other Family history non-contributory Social History Preferred Language: South [place] Communication Ability: Effective Sales Assistant Entertainment And Media Required: No Beliefs That Will Affect Care: None Current Living Situation: Alone Other Information That Helps Us Care for You: No Feels Safe at Home: Yes Safety Concerns: Feels Safe At This Time Smoking Status: Never smoker Hx Alcohol Use: No Hx Substance Use: No Review of Systems Review of Systems: In addition to the problems noted in history of present illness the patient admits to having chronic back pain. She is known to have compression fractures of her spine. She states she also has rheumatoid arthritis and she receives prednisone and methotrexate for that. She denies any bowel problems. She denies urine problems. The sinus problems have resolved as noted. Appetite is good. Weight is stable. Review of systems is otherwise negative. 10 systems reviewed. Physical Exam 2 Physical Exam: The patient is a 79-year-old female who was cooperative alert and oriented. She was in no distress at rest. She coughed slightly. BMI is 26.6. Temperature is 36.8. There has been no fevers during this hospital stay. Weight is 57.7 kg. BMI 26.6. Pupils were reactive. It appeared she likely has had cataract surgery. Nares were clear. Mouth exam shows a Mallampati grade 2 pharynx. Neck veins were distended even with the patient in the near upright position. No lymphadenopathy noted. Cardiac rate 100. Rhythm is irregularly irregular. Blood pressure elevated 146/95. Examination of the chest reveals a dorsal kyphosis. Respiratory rate was 18 breaths/min and not labored. Saturation on room air 95%. Auscultation reveals rales posteriorly bilaterally. There was difficult to determine with certainty if these were wet or dry but they sounded more dry. Abdomen is soft. Bowel sounds normal there was no tenderness to palpation, masses, or organomegaly. Extremities showed. No cyanosis clubbing or edema. She insists that she had much edema when she first came in. Results & Data Vital Signs (Past 12 Hours) Vital Signs Temp Pulse Resp BP Pulse Ox 05/27/19 11:21 85 16 97 05/27/19 07:08 110 H 16 94 05/27/19 06:45 36.7 C 97 H 19 155/95 H 96 05/27/19 03:09 36.5 C 100 H 16 139/90 94 Laboratory Results CBC today showed a white count of 8.98. Hemoglobin 11.5. Platelets 273,000. Electrolytes today show sodium 138 potassium 3.4 chloride 102 bicarb 24. BUN elevated at 33 with creatinine 1.15. AST elevated at 44 with ALT elevated at 80. Procalcitonin was less than 0.05. proBNP was 4380 on 02/19/2019 and on 05/23/2019 the proBNP is 4050. Total protein is 6.5 with albumin 3.0. INR today is 1.5. PCR for Bordetella pertussis is pending. Diagnostic Findings Chest x-ray on admission showed cardiomegaly with small effusions. There was an increased opacity at the right lung base. In light of that a CAT scan of the chest was done on 05/23/2019. This showed no evidence of pulmonary emboli. Right heart dysfunction was suggested by reflux of contrast into the inferior vena cava and hepatic veins. Moderate size hiatal hernia was noted. Small bilateral pleural effusions were noted but they are increased compared with February. There are again some pleural-based nodules at the right lung base. It is difficult to determine if these are the same ones that were biopsied last August elsewhere. Multiple compression deformities are noted. Chest x-ray done 05/25/2019 shows resolution of the previously seen right basilar opacity. PG Care Time/CCT Total # of Minutes Spent Total Time Spent with Patient: Total time spent is greater than 50% in coordination of care (as documented) at patient's floor/unit and/or counseling patient:
[2019-05-27] MEDS: WARFARIN SOD 2 MG TAB PO SCH (15:47)
[2019-05-27] MEDS: cefTRIAXone SODIUM 1,000 MG in DEXTROSE 5% 50 ML IV SCH (15:47)
--- NOTE | 2019-05-27 17:58 | ENT Consultation ---
Date of Consultation May 27, 2019 Assessment & Plan (1) Diastolic heart failure: ENT examination included fiberoptic laryngoscopy showed the vocal cords to be mobile with normal mobility. I cannot find a ENT because of the cough. (2) Multiple lung nodules on CT: History of Present Illness Reason for Consultation: Persistent cough Attending Physician: Damion Navarrete History of Present Illness 79-year-old lady admitted with persistent cough after acquiring anaplasmosis the summer. She states the cough is much better. ENT consultation was requested to evaluate the vocal cords. Allergies Allergy/AdvReac Type Severity Reaction Status Date / Time lorazepam AdvReac Severe DELIRIUM Verified 05/23/19 18:29 promethazine AdvReac Severe DELIRIUM Verified 05/23/19 18:29 Home Medications Home Medications Medication Instructions Recorded Confirmed Type aspirin 81 mg PO DAILY 02/19/19 05/23/19 History folic acid 1 mg PO DAILY 02/19/19 05/23/19 History prednisone 5 mg PO QPM 02/19/19 05/23/19 History ranitidine HCl 150 mg PO BID PRN 02/19/19 05/23/19 History simvastatin 40 mg PO PM 02/19/19 05/23/19 History zoledronic sokb-dyknrddo-hfpum 5 mg IV YEARLY 02/19/19 05/23/19 History [Reclast] albuterol sulfate 2 puff INHALATION DIRECTED PRN 05/23/19 05/23/19 History benzonatate 100 mg PO DIRECTED PRN 05/23/19 05/23/19 History budesonide-formoterol [Symbicort] 2 puff INHALATION BID 05/23/19 05/23/19 History carvedilol 6.25 mg PO BID 05/23/19 05/23/19 History cefuroxime axetil 250 mg PO BID 05/23/19 05/23/19 History cholecalciferol (vitamin D3) 2,000 unit PO DAILY 05/23/19 05/23/19 History [Vitamin D3] dextromethorphan polistirex [Cough 10 ml PO Q12H PRN 05/23/19 05/23/19 History DM ER] diphenhydramine-acetaminophen 1 tab PO HS PRN 05/23/19 05/23/19 History [Tylenol PM Extra Strength] methotrexate sodium 12.5 mg PO WK 05/23/19 05/23/19 History methylprednisolone [Medrol (Mariano)] 0 mg PO DIRECTED 05/23/19 05/23/19 History ropinirole 0.5 - 1 mg PO HS 05/23/19 05/23/19 History warfarin 2 mg PO DAILY 05/23/19 05/23/19 History Patient History Medical History Compression fracture (Chronic) Anemia Arthritis Breast cancer CAD (coronary artery disease) s/p CABG with stenting Surgical History History of coronary artery bypass graft History of coronary artery stent placement History of mastectomy History of mitral valve replacement History of shoulder surgery Family History Other Family history non-contributory Social History Preferred Language: Nauruan Communication Ability: Effective Fitting Room Associate Required: No Beliefs That Will Affect Care: None Current Living Situation: Alone Other Information That Helps Us Care for You: No Feels Safe at Home: Yes Safety Concerns: Feels Safe At This Time Smoking Status: Never smoker Hx Alcohol Use: No Hx Substance Use: No Physical Exam Constitutional: WD/WN, vitals as above Eyes: PERRL, conjunctivae normal, anicteric sclerae ENMT: Ears: + unable to visualize TM (Cerumen) Fiberoptic examination of the vocal cords showed both vocal cords to be mobile and normal in appearance Neck: trachea midline, no thyromegaly Results & Data Vital Signs (Past 12 Hours) Vital Signs Temp Pulse Resp BP Pulse Ox 05/27/19 15:47 102 H 16 98 05/27/19 15:06 36.7 C 96 H 16 153/93 H 95 05/27/19 11:55 36.8 C 101 H 17 146/95 H 95 05/27/19 11:21 85 16 97 05/27/19 07:08 110 H 16 94 05/27/19 06:45 36.7 C 97 H 19 155/95 H 96
[2019-05-27] MEDS: ACETAMINOPHEN 325 MG TAB PO PRN (18:32)
[2019-05-27] MEDS ORDERED: METOPROLOL TARTRATE 50 MG TAB PO SCH (21:00)
[2019-05-28] MEDS ORDERED: AZITHROMYCIN 250 MG TAB PO ONE (09:00)
[2019-05-28] MEDS ORDERED: predniSONE 20 MG TAB PO SCH (09:00)
[2019-05-29 13:50] LABS: Bordetella parapertussis DNA Not Detected (Not Detected)
[2019-05-30 05:51] LABS: CK Total 59 U/L (29-143); CK-MB 0 % (<5); CK-MM 100 % (95-100)
== END 2019-05-27 20:15 | disposition home or self-care (01) | DRG 202 ==
LOC: ED 17:22 → 2N 23:42 → SUATTDRO 23:42 → 2N 05-24 00:06 → 2S 05-24 19:15
DX: I48.0 Paroxysmal atrial fibrillation; D68.32 Hemorrhagic disorder due to extrinsic circulating anticoagulants; G89.29 Other chronic pain; Z95.1 Presence of aortocoronary bypass graft; I11.0 Hypertensive heart disease with heart failure; J20.9 Acute bronchitis, unspecified; I25.10 Atherosclerotic heart disease of native coronary artery without angina pectoris; E78.5 Hyperlipidemia, unspecified; M54.9 Dorsalgia, unspecified; Z79.82 Long term (current) use of aspirin; I50.33 Acute on chronic diastolic (congestive) heart failure; I27.29 Other secondary pulmonary hypertension; Z79.01 Long term (current) use of anticoagulants; R91.8 Other nonspecific abnormal finding of lung field; Z79.52 Long term (current) use of systemic steroids; K21.0 Gastro-esophageal reflux disease with esophagitis; Z88.8 Allergy status to other drugs, medicaments and biological substances; D64.9 Anemia, unspecified; Z79.83 Long term (current) use of bisphosphonates; R79.89 Other specified abnormal findings of blood chemistry; Z86.19 Personal history of other infectious and parasitic diseases; J90 Pleural effusion, not elsewhere classified; Z95.2 Presence of prosthetic heart valve; Z95.5 Presence of coronary angioplasty implant and graft; Z79.899 Other long term (current) drug therapy

== ENCOUNTER 2019-06-14 11:13 | Inpatient (IN) ==
--- NOTE | 2019-06-14 12:26 | XRay Report ---
XR chest 1V portable HISTORY: Dyspnea COMPARISON: Chest 05/25/2019. FINDINGS: No pneumothorax. The heart remains enlarged. A mitral valve ring is noted. There are postst ernotomy changes. Mild central pulmonary vascular congestion without overt edema. This is similar to the prior study. Small right pleural effusion, unchanged. A mcrls-vj-evvgouiz left pleural effusion h as increased in size. Midline skin meagan within the abdomen. Right shoulder prosthesis. IMPRESSION: 1. Increase in size in the small to moderate left pleural effusion. A small right pleural effusion pe rsists. 2. Mild central pulmonary vascular congestion without overt edema, unchanged. Electronically signed by: Alex Desouza M.D. 06/14/2019 12:25 PM
[2019-06-14 13:23] LABS: Alanine Aminotransferase 20 U/L (12-78); BUN Creatinine Ratio 26.2 (10-20); Blood Urea Nitrogen 28 mg/dl (7-18); Carbon Dioxide 24 mmol/L (21-32); Chloride 112 mmol/L (98-107); Est GFR (African American) 57.8; Est GFR (Non-African American) 49.9; Glucose 102 mg/dl (70-99)
[2019-06-14 13:25] LABS: Albumin Globulin Ratio 0.6 (0.9-2); Alkaline Phosphatase 232 U/L (45-117); Bilirubin,Total 1.4 mg/dl (0.2-1); Globulin 3.1 gm/dl (2.5-4.0); Total Protein 5.1 gm/dl (6.4-8.2); Troponin I < 0.015 ng/ml (0-0.045)
[2019-06-14 13:27] LABS: Basophils # (auto) 0.02 K/uL (0-0.2); Basophils % (auto) 0.2 %; Hematocrit (blood only) 34.3 % (37-47); Hemoglobin 10.6 g/dL (12.0-16.0); Immature Granulocytes # (auto) 0.09 K/uL (0.00-0.02); Lymphocytes # (auto) 1.01 K/uL (1.2-3.4); Lymphocytes % (auto) 11.7 %; Mean Corpuscular Hemoglobin 27.2 pg (25-34); Mean Corpuscular Hgb Conc 30.9 g/dL (32-36); Mean Corpuscular Volume 88.2 fL (80-100); Mean Platelet Volume 11.3 fL (7.4-10.4); Monocytes # (auto) 0.64 K/uL (0.11-0.59); Monocytes % (auto) 7.4 %; Neutrophils # (auto) 6.86 K/uL (1.4-6.5); Neutrophils % (auto) 79.7 %; Platelet Count 193 K/uL (130-400); RDW Coefficient of Variation 21.9 % (11.5-14.5); RDW Standard Deviation 57.3 fL (36.4-46.3); Red Blood Count 3.89 M/uL (4.2-5.4); White Blood Count 8.62 K/uL (4.8-10.8)
[2019-06-14 13:38] LABS: Potassium 3.8 mmol/L (3.5-5.1); Sodium 144 mmol/L (136-145)
[2019-06-14 13:39] LABS: INR 2.5 (0.9-1.1); Partial Thromboplastin Ratio 1.3; Partial Thromboplastin Time 36.5 Seconds (21.0-31.0)
[2019-06-14 13:44] LABS: Aspartate Aminotransferase 37 U/L (15-37)
[2019-06-14 13:47] LABS: Influenza A virus by PCR Neg for Influ A (Neg); Influenza B virus by PCR Neg for Influ B (Neg)
[2019-06-14 13:52] LABS: Ovalocytes 1+; Target Cells 1+
[2019-06-14] MEDS ORDERED: dilTIAZem HCl 5 MG/ML 5 ML VIAL IV STA (13:56)
[2019-06-14] MEDS ORDERED: dilTIAZem HCL 125 MG in DEXTROSE 5% 100 ML IV SCH (14:00)
[2019-06-14 14:31] LABS: Appearance Urine Clear (Clear); Bilirubin Urine Negative (Negative); Blood Urine 3+ (Negative); Epithelial Cell Urine Auto >30 /lpf (0-5); Glucose Urine UA Negative (Negative); Ketones Urine Negative (Negative); Leukocyte Esterase Urine 2+ (Negative); Nitrite Urine Positive (Negative); Protein Urine Trace (Negative); RBC Urine Automated >30 /hpf (0-4); Urobilinogen Urine Negative (Negative)
[2019-06-14 14:33] LABS: Color Urine Amber
[2019-06-14 14:46] LABS: Mucus Urine Present (None Prsent)
[2019-06-14 14:47] LABS: Bacteria Urine Automated 1+ (Negative)
--- NOTE | 2019-06-14 16:18 | History & Physical Report ---
Date of Service June 14, 2019 Assessment & Plan (1) Acute diastolic heart failure: * Admit to Telemetry- pt s/p subtotal colectomy [facility] secondary to c. diff colitis * EKG Afib with RVR- likely secondary to acute volume overload, possible Addisonian crisis given chronic prednisone use without stress dose steroids * CXR with increasing left pleural effusion, small right effusion * Cardizem gtt * Repeat ECHO * Repeat CXR * Weight 147.4 currently- weight at discharge 127lb on 05/27/19 * Lasix 20mg IV now, then CESARIO * Strict I&O * Daily Weights- standing scale * Cardiology Consult * UTI- UA+ for nitrite, 2+ leuk esterase--> given patient's recent medical history , empiric treatment with Cefepime and Dapto x 1 * Cefepime IV * Dapto x 1 tonight * Stress dose steroids- Hydrocortisone 12.5mg IV BID * Elevated liver enzymes, likely secondary to hepatic congestion- will continue to monitor * CBC, CMP in AM * (2) Atrial fibrillation with RVR: * EKG on admission afib with rvr- likely secondary to volume overload, acute chf, UTI * Cardizem gtt * Continue home medications (3) Bilateral pleural effusion: * As above- Lasix IV, repeat CXR, daily weights, I&Os * May need to consider thoracentesis pending improvement with diuresis (4) UTI (urinary tract infection): * As above * Given recent hospitalizations, will cover empirically for pseudomonas (5) Elevated transaminase level: * Elevated AST/ALT- likely secondary to hepatic congestion with 20lb wt gain over the past three weeks * Will continue to monitor * Repeat labs (6) Rheumatoid arthritis: * Patient currently not taking methotrexate * Immunosuppressed with daily 5mg prednisone- will give stress dose streoids during admission (7) CAD (coronary artery disease): Hx CABG, Mitral Valve Repair, as above Continue home medications (8) Sciatica: Per history (9) Multiple lung nodules on CT: Per history Has had biopsy in past, gwendolyn (10) History of mitral valve repair: * CABG and valve repair [facility] 7 years ago * Continue home medications (11) Ileostomy, has currently: As above Ileostomy S/P Subtotal colectomy [facility] last week (12) C. difficile colitis: As above (13) DVT prophylaxis: * Patient on coumadin * INR therapeutic - 2.5 * Continue coumadin * INR in AM History of Present Illness Patient is a 79yo female with significant past medical history for CAD (S/P CABG 2011, Mitral Valve Repair at [facility]), Pulmonary HTN, Atrial Fibrillation, Diastolic CHF, Rheumatoid Arthritis, Breast Ca (Right Mastectomy 1987- received chemo only), recent discharge from [facility] on 06/13 to [facility] with ileostomy s/p c.diff colitis and subsequent bowel resection. Patient was seen in the emergency room for further evaluation of shortness of breath. Patient and family state the patient was discharged from [facility] on May 27, and continued to have a cough and felt weak, so she went to [facility] where she was diagnosed with c.diff colitis. The patient became septic and was subsequently life flighted to [facility] where the patient underwent a subtotal colectomy with resulting ileostomy. She was discharge last evening to [facility]. The patient states she believe she may have had a panic attack when she thought two nursing aides at [facility] could potentially drop her when she was getting up. She continues to have shortness of breath, not worsened by inspiration, however she has had some immobilization over the past weeks. She is more comfortable when she sits upright. Patient chronically immunosuppresed with daily prednisone 5mg for her RA, however she has not been taking her methotrexate for several months as per her Pediatric Dietician. She does not believe she was given stress dose steroids during her admission and dose have increased swelling in her legs. Baseline weight 57-58kg. Currently 67kg. EKG atrial fibrillation with RVR. Cardizem x1 in ED. Negative flu. UA positive for protein, 3+ blood, +nitrite, 2+ leuk esterase. CXR with increasing left pleural effusion, persistent right effusion. Current INR, on coumadin, 2.5. Primary Care Provider: Damion Carballo Allergies Allergy/AdvReac Type Severity Reaction Status Date / Time lorazepam AdvReac Intermediate DELIRIUM Verified 06/14/19 16:56 promethazine AdvReac Intermediate DELIRIUM Verified 06/14/19 16:56 Home Medications Home Medications Medication Instructions Recorded Confirmed Type aspirin 81 mg PO QAM 02/19/19 06/14/19 History prednisone 5 mg PO QAM 02/19/19 06/14/19 History simvastatin 40 mg PO PM 02/19/19 06/14/19 History zoledronic jndh-[id number] 5 mg IV YEARLY 02/19/19 06/14/19 History [Reclast] albuterol sulfate 2 puff INHALATION DIRECTED PRN 05/23/19 06/14/19 History carvedilol 6.25 mg PO BID 05/23/19 06/14/19 History cholecalciferol (vitamin D3) 2,000 unit PO DAILY 05/23/19 06/14/19 History [Vitamin D3] methotrexate sodium 12.5 mg PO WK 05/23/19 06/14/19 History ropinirole 0.5 - 1 mg PO HS 05/23/19 06/14/19 History acetaminophen 325 mg PO Q4H PRN 06/14/19 06/14/19 History atorvastatin 20 mg PO HS 06/14/19 06/14/19 History bisacodyl 10 mg MT DAILY PRN 06/14/19 06/14/19 History clopidogrel 75 mg PO QAM 06/14/19 06/14/19 History diclofenac sodium [Voltaren] 2 g TOPICAL QID PRN 06/14/19 06/14/19 History docusate sodium 100 mg PO BID 06/14/19 06/14/19 History famotidine 20 mg PO DAILY 06/14/19 06/14/19 History furosemide 20 mg PO QAM 06/14/19 06/14/19 History metoprolol succinate 75 mg PO QAM 06/14/19 06/14/19 History mometasone 1 spray INTRANASAL DAILY 06/14/19 06/14/19 History polyethylene glycol 3350 [Miralax] 17 g PO DAILY PRN 06/14/19 06/14/19 History sodium phosphates [Fleet Enema] 133 ml MT DAILY PRN 06/14/19 06/14/19 History tramadol 50 mg PO Q6H PRN 06/14/19 06/14/19 History warfarin 2 mg PO UD 06/14/19 06/14/19 History Past Med/Surg History Medical History Multiple lung nodules on CT Pleural effusion (Acute) Volume overload (Acute) Diastolic heart failure (Acute) Acute bacterial bronchitis (Acute) Bronchitis (Acute) Bilateral pleural effusion (Acute) Chronic back pain (Acute) Cough Pulmonary hypertension (Acute) Metabolic acidosis Atrial fibrillation Tachycardia Anaplasmosis Arthritis Back pain Thrombocytopenia Anemia CAD (coronary artery disease) Hypoxia (Acute) Nausea, vomiting, and diarrhea (Acute) Elevated brain natriuretic peptide (BNP) level (Acute) Dehydration (Acute) Black tarry stools (Acute 11/13/13) GI bleed (Acute) Rib fractures (Acute) Dizziness (Acute) Sciatica (Chronic) Minor head injury (Acute) Scalp abrasion (Acute) Vertigo (Acute) C. difficile diarrhea Ileostomy in place Compression fracture (Chronic) Anemia Arthritis Breast cancer CAD (coronary artery disease) s/p CABG with stenting Surgical History History of mitral valve repair History of total colectomy [facility] - due to toxic megacolon from c.diff - 05/2019; with ileostomy formation History of coronary artery bypass graft History of coronary artery stent placement History of mastectomy History of mitral valve replacement History of shoulder surgery Family History Mother Cancer, Onset Age: 60 Colon Ca Social History Preferred Language: Maltese Communication Ability: Effective Business Banking Officer Required: No Beliefs That Will Affect Care: None marital status: / Current Living Situation: Rehab Current Living Situation Comment: was at [employer] current occupational status: retired Other Information That Helps Us Care for You: No Feels Safe at Home: Yes Safety Concerns: Feels Safe At This Time Smoking Status: Never smoker Hx Alcohol Use: No Hx Substance Use: No Review of Systems Review of Systems: All systems reviewed & are unremarkable except as noted in HPI & below Constitutional: + weakness (from multiple hospitalizations); no fever and no chills Eyes: no diplopia and no eye pain Ear, Nose, Mouth, Throat: no ear pain and no tinnitus Respiratory: + cough, + chest congestion and + dyspnea Cardiovascular: + edema; no chest pain Gastrointestinal: + abdominal pain; no nausea and no vomiting recent ileostomy Genitourinary: + hematuria (brown removed two or three days ago); no dysuria and no difficulty urinating Musculoskeletal: chronic compression fractures due to steroid use Integumentary: no acne, no rash and no lesions Neurologic: + generalized weakness; no dizziness and no abnormal speech Psychiatric: + anxiety Physical Exam Constitutional: + ill appearing, + frail appearing and cooperative Eyes: PERRL, conjunctivae normal, anicteric sclerae ENMT: erythema and fungal infection of posterior oropharynx Neck: trachea midline, no thyromegaly JVD Respiratory: + tachypneic; no labored breathing, no audible wheezes and no stridor Auscultation: + diminished lung sounds (bilaterally, left significantly >> right) and + wheezes Cardiovascular: Rate/Rhythm: + tachycardic and + irregularly irregular Vessels: + JVD Extremities: + edema (2+ bilateral lower extremity edema to thighs) Gastrointestinal (Abdomen): Inspection/Auscultation: normal bowel sounds Percussion/Palpation: abdomen soft and + tympanic to percussion; abdomen nontender Ileostomy RLQ- without erythema or drainage around ostomy Musculoskeletal: no cyanosis or clubbing, extremities motor strength 5/5 Skin: no rashes, warm and dry + pallor (decreased pallor) Neurologic: PERRL, EOMI, accommodation nl, no face palsy, no dysarthria Psychiatric: Patient pleasant but visibly anxious, ill appearing Results & Data Vital Signs (Past 12 Hours) Vital Signs Temp Pulse Resp BP Pulse Ox 06/14/19 15:15 95 H 31 H 106/80 95 06/14/19 15:00 100 H 22 101/72 99 06/14/19 14:55 98 H 31 H 105/69 96 06/14/19 14:50 94 H 31 H 115/70 06/14/19 14:45 96 H 34 H 84/64 L 06/14/19 14:41 105 H 25 H 111/80 06/14/19 14:30 93 H 28 H 111/81 06/14/19 14:20 103 H 30 H 104/72 06/14/19 14:00 111 H 29 H 98/79 L 95 06/14/19 13:30 135 H 27 H 06/14/19 13:00 116 H 33 H 94 06/14/19 12:30 110 H 30 H 119/91 99 06/14/19 12:21 124 H 32 H 97/80 L 99 06/14/19 11:34 88 L 06/14/19 11:22 36.7 C 113 H 20 104/71 97 Laboratory Results 06/14/19 06/14/19 06/14/19 Range/Units 13:45 13:13 13:13 WBC 8.62 (4.8-10.8) K/uL RBC 3.89 L (4.2-5.4) M/uL Hgb 10.6 L (12.0-16.0) g/dL Hct 34.3 L (37-47) % MCV 88.2 (80-100) fL MCH 27.2 (25-34) pg MCHC 30.9 L (32-36) g/dL RDW Std Deviation 57.3 H (36.4-46.3) fL RDW Coeff of Nina 21.9 H (11.5-14.5) % Plt Count 193 (130-400) K/uL MPV 11.3 H (7.4-10.4) fL Immature Gran % (Auto) 1.0 % Neut % (Auto) 79.7 % Lymph % (Auto) 11.7 % [place] % (Auto) 7.4 % Eos % (Auto) 0.0 % Baso % (Auto) 0.2 % Immature Gran # (Auto) 0.09 H (0.00-0.02) K/uL Neut # (Auto) 6.86 H (1.4-6.5) K/uL Lymph # (Auto) 1.01 L (1.2-3.4) K/uL [place] # (Auto) 0.64 H (0.11-0.59) K/uL Eos # (Auto) 0.00 (0-0.5) K/uL Baso # (Auto) 0.02 (0-0.2) K/uL Target Cells 1+ Ovalocytes 1+ PT 24.0 H (9.0-12.0) Seconds INR 2.5 H (0.9-1.1) APTT 36.5 H (21.0-31.0) Seconds PTT Ratio 1.3 Sodium (136-145) mmol/L Potassium (3.5-5.1) mmol/L Chloride (98-107) mmol/L Carbon Dioxide (21-32) mmol/L Anion Gap (3-11) BUN (7-18) mg/dl Creatinine (0.6-1.2) mg/dl Est Cr Clr Drug Dosing Est GFR ( Amer) Est GFR (Non-Af Amer) BUN/Creatinine Ratio (10-20) Glucose (70-99) mg/dl Calcium (8.5-10.1) mg/dl Total Bilirubin (0.2-1) mg/dl AST (15-37) U/L ALT (12-78) U/L Alkaline Phosphatase (45-117) U/L Troponin I (0-0.045) ng/ml Total Protein (6.4-8.2) gm/dl Albumin (3.4-5.0) gm/dl Globulin (2.5-4.0) gm/dl Albumin/Globulin Ratio (0.9-2) Urine Color Navya Urine Appearance Clear (Clear) Urine pH 5.0 (4.5-7.5) Ur Specific [place] 1.020 (1.000-1.030) Urine Protein Trace H (Negative) Urine Glucose (UA) Negative (Negative) Urine Ketones Negative (Negative) Urine Blood 3+ H (Negative) Urine Nitrite Positive A (Negative) Urine Bilirubin Negative (Negative) Urine Urobilinogen Negative (Negative) Ur Leukocyte Esterase 2+ H (Negative) Urine WBC (Auto) 10-30 H (0-5) /hpf Urine RBC (Auto) >30 H (0-4) /hpf U Hyaline Cast (Auto) 1-5 (0-5) /lpf U Epithel Cells (Auto) >30 H (0-5) /lpf Urine Bacteria (Auto) 1+ H (Negative) Ur Renal Epithelial Cell Not Reportable Urine Mucus Present A (None Prsent) Influenza Type A (PCR) (Neg) Influenza Type B (PCR) (Neg) 06/14/19 06/14/19 Range/Units 12:52 12:45 WBC (4.8-10.8) K/uL RBC (4.2-5.4) M/uL Hgb (12.0-16.0) g/dL Hct (37-47) % MCV (80-100) fL MCH (25-34) pg MCHC (32-36) g/dL RDW Std Deviation (36.4-46.3) fL RDW Coeff of Nina (11.5-14.5) % Plt Count (130-400) K/uL MPV (7.4-10.4) fL Immature Gran % (Auto) % Neut % (Auto) % Lymph % (Auto) % [place] % (Auto) % Eos % (Auto) % Baso % (Auto) % Immature Gran # (Auto) (0.00-0.02) K/uL Neut # (Auto) (1.4-6.5) K/uL Lymph # (Auto) (1.2-3.4) K/uL [place] # (Auto) (0.11-0.59) K/uL Eos # (Auto) (0-0.5) K/uL Baso # (Auto) (0-0.2) K/uL Target Cells Ovalocytes PT (9.0-12.0) Seconds INR (0.9-1.1) APTT (21.0-31.0) Seconds PTT Ratio Sodium 144 (136-145) mmol/L Potassium 3.8 (3.5-5.1) mmol/L Chloride 112 H (98-107) mmol/L Carbon Dioxide 24 (21-32) mmol/L Anion Gap 8.0 (3-11) BUN 28 H (7-18) mg/dl Creatinine 1.06 (0.6-1.2) mg/dl Est Cr Clr Drug Dosing Not Reportable Est GFR ( Amer) 57.8 Est GFR (Non-Af Amer) 49.9 BUN/Creatinine Ratio 26.2 H (10-20) Glucose 102 H (70-99) mg/dl Calcium 8.0 L (8.5-10.1) mg/dl Total Bilirubin 1.4 H (0.2-1) mg/dl AST 37 (15-37) U/L ALT 20 (12-78) U/L Alkaline Phosphatase 232 H (45-117) U/L Troponin I < 0.015 (0-0.045) ng/ml Total Protein 5.1 L (6.4-8.2) gm/dl Albumin 2.0 L (3.4-5.0) gm/dl Globulin 3.1 (2.5-4.0) gm/dl Albumin/Globulin Ratio 0.6 L (0.9-2) Urine Color Urine Appearance (Clear) Urine pH (4.5-7.5) Ur Specific [place] (1.000-1.030) Urine Protein (Negative) Urine Glucose (UA) (Negative) Urine Ketones (Negative) Urine Blood (Negative) Urine Nitrite (Negative) Urine Bilirubin (Negative) Urine Urobilinogen (Negative) Ur Leukocyte Esterase (Negative) Urine WBC (Auto) (0-5) /hpf Urine RBC (Auto) (0-4) /hpf U Hyaline Cast (Auto) (0-5) /lpf U Epithel Cells (Auto) (0-5) /lpf Urine Bacteria (Auto) (Negative) Ur Renal Epithelial Cell Urine Mucus (None Prsent) Influenza Type A (PCR) Neg for Influ A (Neg) Influenza Type B (PCR) Neg for Influ B (Neg) Diagnostic Findings XR chest 1V portable HISTORY: Dyspnea COMPARISON: Chest 05/25/2019. FINDINGS: No pneumothorax. The heart remains enlarged. A mitral valve ring is noted. There are poststernotomy changes. Mild central pulmonary vascular congestion without overt edema. This is similar to the prior study. Small right pleural effusion, unchanged. A [id number] left pleural effusion has increased in size. Midline skin meagan within the abdomen. Right shoulder prosthesis. IMPRESSION: 1. Increase in size in the small to moderate left pleural effusion. A small right pleural effusion persists. 2. Mild central pulmonary vascular congestion without overt edema, unchanged. Electronically signed by: Alex Desouza M.D. 06/14/2019 12:25 PM Supervising Physician Co-Signing Physician Notes Attending Attestation & Admission Note: Pt seen/examined, chart reviewed, care plan d/w FREEMAN Pressley. I agree w/ the hess components of her admission documentation. Sickly 79yo female with numerous medical problems including CAD, h/o CABG, MVR, a.fib, steroid-dependent RA - recent hospital stay at [facility] in early May for acute bronchitis, followed by development of c.diff colitis requiring hospitalization at [facility], and then ultimately transferred to [facility] for toxic megacolon & subtotal colectomy - presents from [facility] due to dyspnea. Apparently she was being lifted from a chair by 2 nurses at rehab and developed sudden dyspnea. This was in the absence of chest pain, abdominal pain, fever or other complaints. Family at bedside report no obvious dyspnea while at [facility]. She has had poor appetite. She does not use oxygen. Has long-standing a.fib. PMH, PSH, allergies, meds, sochx, famhx, ros - reviewed VS - tachy, mildly low BP, afebrile gen - sickly, pale, frail appearing neck - JVD present mouth - ulcerations of palate and buccal mucosa heart - tachy, s1, s2, irregularly irregular lungs - decreased BS left base, rales right base abd - soft, ileostomy in place with brown stool (liquid), BS+, NT ext - 2-3+ edema b/l labs, EKG, cxr, u/a - reviewed A/P: 1. acute hypoxic respiratory failure - likely 2nd to acute/chronic diastolic CHF - 20 pounds volume overloaded from previous admission at [facility]. 2. left-sided pleural effusion - worse than previous cxr. 3. possible UTI. 4. a.fib with RVR. 5. steroid-dependent RA. 6. CKD stage 3. 7. recent toxic megacolon 2nd to c diff colitis s/p subtotal colectomy and ileostomy formation. 8. hypoalbuminemia. Diurese. Antibiotics for possible UTI. Cardizem drip for a.fib RVR. Repeat cxr 1-2 days to reassess L pleural effusion. Stress dose steroids. Jesus Berg MD PG Care Time/CCT Total # of Minutes Spent Total Time Spent with Patient: Total time spent is greater than 50% in coordination of care (as documented) at patient's floor/unit and/or counseling patient:75 (1) CAD (coronary artery disease) Associated angina: without angina Coronary Disease-Associated Artery/Lesion type: unspecified vessel or lesion type [place] vs. transplanted heart: [place] heart Qualified Code(s): I25.10 - Atherosclerotic heart disease of [place] coronary artery without angina pectoris
[2019-06-14] MEDS ORDERED: FUROSEMIDE 20 MG in SYRINGE 0 ML IV ONE (16:30)
[2019-06-14] MEDS ORDERED: FUROSEMIDE 40 MG/4 ML VIAL IV ONE (17:25)
[2019-06-14] MEDS ORDERED: bisacodyL 10 MG SUPP PR PRN (18:42)
[2019-06-14] MEDS ORDERED: DAPTOmycin 500 MG VIAL IV ONE (18:42)
[2019-06-14] MEDS ORDERED: ACETAMINOPHEN 325 MG TAB PO PRN (18:42)
[2019-06-14] MEDS ORDERED: POLYETHYLENE (MIRALAX) 17 GM PACK PO PRN ×2 (18:42)
[2019-06-14] MEDS ORDERED: ALBUTEROL HFA 8 GM INHALER INH PRN (18:42)
[2019-06-14] MEDS ORDERED: TRAMADOL HCL 50 MG TABLET PO PRN (18:42)
[2019-06-14] MEDS ORDERED: SOD PHOSPHATE/SOD BIPHOSPHATE ENEMA 132 ML BTL PR PRN (18:42)
--- NOTE | 2019-06-14 19:07 | Emergency Department Note ---
Entered by Maira Fonseca acting as a scribe for History of Present Illness General Chief complaint: Shortness of Breath/Dyspnea Source: patient History of Present Illness Onset (ago): minute(s) (prior to arrival) Location: chest Pain Consistency: + now resolved and + other (episode) Quality: + other (shortness of breath) Associated symptoms: + denies other symptoms (rhinorrhea, diarrhea, abdominal pain); no chest pain, no cough and no nausea/vomiting The patient is a 79 year old female who presents to the Emergency Room with complaints of an episode of now resolved shortness of breath occurring prior to arrival. The patient states that she is at [facility] following a placement of an ileostomy. She states that she got there yesterday from [email or web address]. She reports that today when they wanted her to do this exercise, she became worked up. She states that she didnt want to do it and ended up having an episode of shortness of breath. She reports that she thinks it was a panic attack, but the doctor was concerned for pneumonia and sent her here. The patient notes that they put oxygen on her before coming over, but she doesnt typically wear any. She note that she is on Coumadin for atrial fibrillation and right before coming here, her numbers were low, but she cannot remember how low. The patient denies cough, rhinorrhea, chest pain, nausea, vomiting, diarrhea, abdominal pain, a history of lung disease, and a history of asthma. Home Medications Home Medications Medication Instructions Recorded Confirmed Type aspirin 81 mg PO QAM 02/19/19 06/14/19 History prednisone 5 mg PO QAM 02/19/19 06/14/19 History simvastatin 40 mg PO PM 02/19/19 06/14/19 History zoledronic [id number] 5 mg IV YEARLY 02/19/19 06/14/19 History [Reclast] albuterol sulfate 2 puff INHALATION DIRECTED PRN 05/23/19 06/14/19 History carvedilol 6.25 mg PO BID 05/23/19 06/14/19 History cholecalciferol (vitamin D3) 2,000 unit PO DAILY 05/23/19 06/14/19 History [Vitamin D3] methotrexate sodium 12.5 mg PO WK 05/23/19 06/14/19 History ropinirole 0.5 - 1 mg PO HS 05/23/19 06/14/19 History acetaminophen 325 mg PO Q4H PRN 06/14/19 06/14/19 History atorvastatin 20 mg PO HS 06/14/19 06/14/19 History bisacodyl 10 mg OK DAILY PRN 06/14/19 06/14/19 History clopidogrel 75 mg PO QAM 06/14/19 06/14/19 History diclofenac sodium [Voltaren] 2 g TOPICAL QID PRN 06/14/19 06/14/19 History docusate sodium 100 mg PO BID 06/14/19 06/14/19 History famotidine 20 mg PO DAILY 06/14/19 06/14/19 History furosemide 20 mg PO QAM 06/14/19 06/14/19 History metoprolol succinate 75 mg PO QAM 06/14/19 06/14/19 History mometasone 1 spray INTRANASAL DAILY 06/14/19 06/14/19 History polyethylene glycol 3350 [Miralax] 17 g PO DAILY PRN 06/14/19 06/14/19 History sodium phosphates [Fleet Enema] 133 ml OK DAILY PRN 06/14/19 06/14/19 History tramadol 50 mg PO Q6H PRN 06/14/19 06/14/19 History warfarin 2 mg PO UD 06/14/19 06/14/19 History Allergies Allergy/AdvReac Type Severity Reaction Status Date / Time lorazepam AdvReac Intermediate DELIRIUM Verified 06/14/19 16:56 promethazine AdvReac Intermediate DELIRIUM Verified 06/14/19 16:56 Past Med/Surg History Medical History Multiple lung nodules on CT Pleural effusion (Acute) Volume overload (Acute) Diastolic heart failure (Acute) Acute bacterial bronchitis (Acute) Bronchitis (Acute) Bilateral pleural effusion (Acute) Chronic back pain (Acute) Cough Pulmonary hypertension (Acute) Metabolic acidosis Atrial fibrillation Tachycardia Anaplasmosis Arthritis Back pain Thrombocytopenia Anemia CAD (coronary artery disease) Hypoxia (Acute) Nausea, vomiting, and diarrhea (Acute) Elevated brain natriuretic peptide (BNP) level (Acute) Dehydration (Acute) Black tarry stools (Acute 11/13/13) GI bleed (Acute) Rib fractures (Acute) Dizziness (Acute) Sciatica (Chronic) Minor head injury (Acute) Scalp abrasion (Acute) Vertigo (Acute) C. difficile diarrhea Ileostomy in place Compression fracture (Chronic) Anemia Arthritis Breast cancer CAD (coronary artery disease) s/p CABG with stenting Surgical History History of mitral valve repair History of coronary artery bypass graft History of coronary artery stent placement History of mastectomy History of mitral valve replacement History of shoulder surgery Family History Mother Cancer, Onset Age: 60 Colon Ca Other Family history non-contributory Social History Preferred Language: Maori Communication Ability: Effective Permit Coordinator Required: No Beliefs That Will Affect Care: None marital status: / Current Living Situation: Rehab Current Living Situation Comment: was at [facility] current occupational status: retired Other Information That Helps Us Care for You: No Feels Safe at Home: Yes Safety Concerns: Feels Safe At This Time Smoking Status: Never smoker Hx Alcohol Use: No Hx Substance Use: No Review of Systems See HPI for pertinent positives & negatives. and A total of 10 systems reviewed and were otherwise negative Physical Exam Vital Signs Vital Signs - 24 hr 06/14/19 11:22 06/14/19 11:34 06/14/19 11:51 Temperature 36.7 C Temperature Source Oral Sepsis Recent Fever Within 48 Hours No Sepsis New/Unexplained Change in Mental Status No Sepsis Action Taken by Nursing No Action Required Oxygen Flow Rate - Titration 2 Pulse Oximetry Post Tiitration 96 Pulse Rate 113 H Respiratory Rate 20 Respiratory Effort / Characteristics Non-Labored Spontaneous Respiratory Depth Normal Respiratory Pattern Regular Blood Pressure 104/71 Blood Pressure Mean 82 Pulse Oximetry 97 88 L Oxygen Delivery Method Room Air Room Air Nasal Cannula Nasal Cannula Oxygen Flow Rate 0 2 06/14/19 12:21 06/14/19 12:30 06/14/19 13:00 Temperature Temperature Source Sepsis Recent Fever Within 48 Hours Sepsis New/Unexplained Change in Mental Status Sepsis Action Taken by Nursing Oxygen Flow Rate - Titration Pulse Oximetry Post Tiitration Pulse Rate 124 H 110 H 116 H Respiratory Rate 32 H 30 H 33 H Respiratory Effort / Characteristics Respiratory Depth Respiratory Pattern Blood Pressure 97/80 L 119/91 Blood Pressure Mean 85 100 Pulse Oximetry 99 99 94 Oxygen Delivery Method Nasal Cannula Nasal Cannula Nasal Cannula Oxygen Flow Rate 2 2 2 06/14/19 13:30 06/14/19 14:00 06/14/19 14:20 Temperature Temperature Source Sepsis Recent Fever Within 48 Hours Sepsis New/Unexplained Change in Mental Status Sepsis Action Taken by Nursing Oxygen Flow Rate - Titration Pulse Oximetry Post Tiitration Pulse Rate 135 H 111 H 103 H Respiratory Rate 27 H 29 H 30 H Respiratory Effort / Characteristics Respiratory Depth Respiratory Pattern Blood Pressure 98/79 L 104/72 Blood Pressure Mean 85 82 Pulse Oximetry 95 Oxygen Delivery Method Nasal Cannula Oxygen Flow Rate 2 06/14/19 14:30 06/14/19 14:41 06/14/19 14:45 Temperature Temperature Source Sepsis Recent Fever Within 48 Hours Sepsis New/Unexplained Change in Mental Status Sepsis Action Taken by Nursing Oxygen Flow Rate - Titration Pulse Oximetry Post Tiitration Pulse Rate 93 H 105 H 96 H Respiratory Rate 28 H 25 H 34 H Respiratory Effort / Characteristics Respiratory Depth Respiratory Pattern Blood Pressure 111/81 111/80 84/64 L Blood Pressure Mean 91 90 70 Pulse Oximetry Oxygen Delivery Method Oxygen Flow Rate 06/14/19 14:50 06/14/19 14:55 06/14/19 15:00 Temperature Temperature Source Sepsis Recent Fever Within 48 Hours Sepsis New/Unexplained Change in Mental Status Sepsis Action Taken by Nursing Oxygen Flow Rate - Titration Pulse Oximetry Post Tiitration Pulse Rate 94 H 98 H 100 H Respiratory Rate 31 H 31 H 22 Respiratory Effort / Characteristics Respiratory Depth Respiratory Pattern Blood Pressure 115/70 105/69 101/72 Blood Pressure Mean 85 81 81 Pulse Oximetry 96 99 Oxygen Delivery Method Nasal Cannula Nasal Cannula Oxygen Flow Rate 2 2 06/14/19 15:15 06/14/19 15:25 06/14/19 15:30 Temperature Temperature Source Sepsis Recent Fever Within 48 Hours Sepsis New/Unexplained Change in Mental Status Sepsis Action Taken by Nursing Oxygen Flow Rate - Titration Pulse Oximetry Post Tiitration Pulse Rate 95 H 94 H 93 H Respiratory Rate 31 H 28 H 25 H Respiratory Effort / Characteristics Respiratory Depth Respiratory Pattern Blood Pressure 106/80 104/73 104/67 Blood Pressure Mean 88 83 79 Pulse Oximetry 95 96 95 Oxygen Delivery Method Nasal Cannula Nasal Cannula Nasal Cannula Oxygen Flow Rate 2 2 2 06/14/19 15:35 06/14/19 15:40 Temperature Temperature Source Sepsis Recent Fever Within 48 Hours Sepsis New/Unexplained Change in Mental Status Sepsis Action Taken by Nursing Oxygen Flow Rate - Titration Pulse Oximetry Post Tiitration Pulse Rate 105 H 97 H Respiratory Rate 26 H 34 H Respiratory Effort / Characteristics Respiratory Depth Respiratory Pattern Blood Pressure 102/68 107/75 Blood Pressure Mean 79 85 Pulse Oximetry 95 91 Oxygen Delivery Method Nasal Cannula Nasal Cannula Oxygen Flow Rate 2 2 GENERAL: sitting up in bed, no acute distress, nontoxic, talking in full sentences EYE EXAM: normal conjunctiva OROPHARYNX: no exudate, no erythema, lips, buccal mucosa, and tongue normal and mucous membranes are moist NECK: supple, no nuchal rigidity, no adenopathy, non-tender, bandage over the left IJ. LUNGS: Diminished at bilateral bases. Normal chest wall mechanics HEART: no murmurs, S1 normal and S2 normal ABDOMEN: abdomen soft, ostomy in right lower quadrant, meagan midline, non- tender, normo-active bowel sounds, no masses, no rebound or guarding. BACK: Back is symmetrical on inspection and there is no deformity, no midline tenderness, no CVA tenderness. SKIN: no rashes and no bruising UPPER EXTREMITIES: upper extremities are grossly normal. LOWER EXTREMITIES: No pitting edema. Calves are equal bilaterally. NEURO EXAM: Normal sensorium, cranial nerves II-XII grossly intact, normal speech, no gross weakness of arms, no gross weakness of legs. Course ED COURSE: Vital signs were reviewed and showed hypotension, tachycardia, and tachypnea. The patients medical record was reviewed The above diagnostic studies were performed and reviewed. ED treatments and interventions as stated above. 1204: The patient was evaluated in room C3. A complete history and physical examination was performed. 1244: I reevaluated the patient and she is refusing to have anything done. She states that she would like to go back to [facility]. I explained that she is hypoxic. She states that she doesn't want anything done till her daughter gets here. 1240: The director case went and spoke with the patient. At the same time, the patient's daughter called in. Her daughter encouraged her to do everything we asked her to do. She is willing to. 1353: Upon reevaluation, the patient is resting comfortably. I discussed my findings with the patient and she understands and agrees with the treatment plan. Based on the patients age, coexisting illnesses, exam and lab findings the decision to treat as an inpatient was made. The patient remained stable while under my care. The patient will be evaluated for further management. 1358: I discussed the patient's case with Dr. Kayla BEASLEY Hospitalist. She will evaluate the patient for further management. Consultations Consultation #1: I discussed the patient's case with Dr. Kayla BEASLEY Hospitalist. She will evaluate the patient for further management. Time: 13:58 Administered Medications Discontinued Medications Diltiazem HCl (Cardizem) 5 mg IV NOW STA Stop: 06/14/19 13:57 Last Admin: 06/14/19 14:42 Dose: 5 mg Documented by: [id number] Cosigned by: [id number] Furosemide (Lasix) Confirm Administered Dose 40 mg IV [facility] Stop: 06/14/19 17:26 Last Admin: 06/14/19 17:30 Dose: 20 mg Documented by: [id number] Medical Decision Making Differential Diagnosis Differential diagnoses includes but is not limited to pneumonia, bronchitis, COPD/Asthma exacerbation, pneumothorax, pulmonary embolism, congestive heart failure, acute coronary syndrome Medical Records Attestation: I reviewed the patient's medical records. Home Medications Current Medication List: was personally reviewed by me Laboratory Data Attestation: I reviewed the patient's lab results. Result diagrams: 06/14/19 13:13 06/14/19 12:52 Lab Results 06/14/19 06/14/19 06/14/19 Range/Units 12:45 12:52 13:13 WBC 8.62 (4.8-10.8) K/uL RBC 3.89 L (4.2-5.4) M/uL Hgb 10.6 L (12.0-16.0) g/dL Hct 34.3 L (37-47) % MCV 88.2 (80-100) fL MCH 27.2 (25-34) pg MCHC 30.9 L (32-36) g/dL RDW Std Deviation 57.3 H (36.4-46.3) fL RDW Coeff of Nina 21.9 H (11.5-14.5) % Plt Count 193 (130-400) K/uL MPV 11.3 H (7.4-10.4) fL Immature Gran % (Auto) 1.0 % Neut % (Auto) 79.7 % Lymph % (Auto) 11.7 % [place] % (Auto) 7.4 % Eos % (Auto) 0.0 % Baso % (Auto) 0.2 % Immature Gran # (Auto) 0.09 H (0.00-0.02) K/uL Neut # (Auto) 6.86 H (1.4-6.5) K/uL Lymph # (Auto) 1.01 L (1.2-3.4) K/uL [place] # (Auto) 0.64 H (0.11-0.59) K/uL Eos # (Auto) 0.00 (0-0.5) K/uL Baso # (Auto) 0.02 (0-0.2) K/uL Target Cells 1+ Ovalocytes 1+ PT (9.0-12.0) Seconds INR (0.9-1.1) APTT (21.0-31.0) Seconds PTT Ratio Sodium 144 (136-145) mmol/L Potassium 3.8 (3.5-5.1) mmol/L Chloride 112 H (98-107) mmol/L Carbon Dioxide 24 (21-32) mmol/L Anion Gap 8.0 (3-11) BUN 28 H (7-18) mg/dl Creatinine 1.06 (0.6-1.2) mg/dl Est Cr Clr Drug Dosing Not Reportable Est GFR ( Amer) 57.8 Est GFR (Non-Af Amer) 49.9 BUN/Creatinine Ratio 26.2 H (10-20) Glucose 102 H (70-99) mg/dl Calcium 8.0 L (8.5-10.1) mg/dl Total Bilirubin 1.4 H (0.2-1) mg/dl AST 37 (15-37) U/L ALT 20 (12-78) U/L Alkaline Phosphatase 232 H (45-117) U/L Troponin I < 0.015 (0-0.045) ng/ml Total Protein 5.1 L (6.4-8.2) gm/dl Albumin 2.0 L (3.4-5.0) gm/dl Globulin 3.1 (2.5-4.0) gm/dl Albumin/Globulin Ratio 0.6 L (0.9-2) Urine Color Urine Appearance (Clear) Urine pH (4.5-7.5) Ur Specific [place] (1.000-1.030) Urine Protein (Negative) Urine Glucose (UA) (Negative) Urine Ketones (Negative) Urine Blood (Negative) Urine Nitrite (Negative) Urine Bilirubin (Negative) Urine Urobilinogen (Negative) Ur Leukocyte Esterase (Negative) Urine WBC (Auto) (0-5) /hpf Urine RBC (Auto) (0-4) /hpf U Hyaline Cast (Auto) (0-5) /lpf U Epithel Cells (Auto) (0-5) /lpf Urine Bacteria (Auto) (Negative) Ur Renal Epithelial Cell Urine Mucus (None Prsent) Influenza Type A (PCR) Neg for Influ A (Neg) Influenza Type B (PCR) Neg for Influ B (Neg) 06/14/19 06/14/19 Range/Units 13:13 13:45 WBC (4.8-10.8) K/uL RBC (4.2-5.4) M/uL Hgb (12.0-16.0) g/dL Hct (37-47) % MCV (80-100) fL MCH (25-34) pg MCHC (32-36) g/dL RDW Std Deviation (36.4-46.3) fL RDW Coeff of Nina (11.5-14.5) % Plt Count (130-400) K/uL MPV (7.4-10.4) fL Immature Gran % (Auto) % Neut % (Auto) % Lymph % (Auto) % [place] % (Auto) % Eos % (Auto) % Baso % (Auto) % Immature Gran # (Auto) (0.00-0.02) K/uL Neut # (Auto) (1.4-6.5) K/uL Lymph # (Auto) (1.2-3.4) K/uL [place] # (Auto) (0.11-0.59) K/uL Eos # (Auto) (0-0.5) K/uL Baso # (Auto) (0-0.2) K/uL Target Cells Ovalocytes PT 24.0 H (9.0-12.0) Seconds INR 2.5 H (0.9-1.1) APTT 36.5 H (21.0-31.0) Seconds PTT Ratio 1.3 Sodium (136-145) mmol/L Potassium (3.5-5.1) mmol/L Chloride (98-107) mmol/L Carbon Dioxide (21-32) mmol/L Anion Gap (3-11) BUN (7-18) mg/dl Creatinine (0.6-1.2) mg/dl Est Cr Clr Drug Dosing Est GFR ( Amer) Est GFR (Non-Af Amer) BUN/Creatinine Ratio (10-20) Glucose (70-99) mg/dl Calcium (8.5-10.1) mg/dl Total Bilirubin (0.2-1) mg/dl AST (15-37) U/L ALT (12-78) U/L Alkaline Phosphatase (45-117) U/L Troponin I (0-0.045) ng/ml Total Protein (6.4-8.2) gm/dl Albumin (3.4-5.0) gm/dl Globulin (2.5-4.0) gm/dl Albumin/Globulin Ratio (0.9-2) Urine Color [place] Urine Appearance Clear (Clear) Urine pH 5.0 (4.5-7.5) Ur Specific [place] 1.020 (1.000-1.030) Urine Protein Trace H (Negative) Urine Glucose (UA) Negative (Negative) Urine Ketones Negative (Negative) Urine Blood 3+ H (Negative) Urine Nitrite Positive A (Negative) Urine Bilirubin Negative (Negative) Urine Urobilinogen Negative (Negative) Ur Leukocyte Esterase 2+ H (Negative) Urine WBC (Auto) 10-30 H (0-5) /hpf Urine RBC (Auto) >30 H (0-4) /hpf U Hyaline Cast (Auto) 1-5 (0-5) /lpf U Epithel Cells (Auto) >30 H (0-5) /lpf Urine Bacteria (Auto) 1+ H (Negative) Ur Renal Epithelial Cell Not Reportable Urine Mucus Present A (None Prsent) Influenza Type A (PCR) (Neg) Influenza Type B (PCR) (Neg) Imaging Data Radiologist's Impression: Radiology results as stated below per my review and the radiologist's interpretation: XR chest 1V portable HISTORY: Dyspnea COMPARISON: Chest 05/25/2019. FINDINGS: No pneumothorax. The heart remains enlarged. A mitral valve ring is noted. There are poststernotomy changes. Mild central pulmonary vascular congestion without overt edema. This is similar to the prior study. Small right pleural effusion, unchanged. A [id number] left pleural effusion has increased in size. Midline skin meagan within the abdomen. Right shoulder prosthesis. IMPRESSION: 1. Increase in size in the small to moderate left pleural effusion. A small right pleural effusion persists. 2. Mild central pulmonary vascular congestion without overt edema, unchanged. Electronically signed by: Alex Desouza M.D. 06/14/2019 12:25 PM ECG Data Attestation: I personally reviewed and interpreted this ECG as follows: Indication: SOB/dyspnea Rate (beats per minute): 116 Rhythm: atrial fibrillation (with RVR) Findings: + other (poor baseline in lateral leads) and + left axis deviation; no PVC Blood Pressure Blood Pressure Findings: Low blood pressure Blood Pressure Disposition: further management by hospitalist PENELOPE Narrative Patient is a 79-year-old female who presents the ER for shortness of breath. Upon presentation she is found to be hypoxic at 88 to 87% on room air. Placed on nasal cannula. Patient has a past medical history of A. fib, mitral valve repair, CHF, and C. difficile. She had a recent bowel resection. IV was established blood work was obtained showed no significant leukocytosis or a mild anemia 10.6. INR was therapeutic at 2.5. BMP was unremarkable. Bilirubin slightly elevated at 1.4. No transaminitis. UA was contaminated with multiple epithelial cells and did not resolve until after admission but nitrates were positive. Influenza was negative. Chest x-ray with a large left pleural effusion. Do favor this to cause of her hypoxia. She is updated bedside. Discussed the hospitalist and she will be observed overnight for hypoxia and large left pleural effusion. EKG did show A. fib with RVR which was in the low 100s. Did not treat initially as she was fairly rate controlled. Impression & Plan Hypoxic, Tachycardia, Pleural effusion, Tachypnea, Atrial fibrillation with RVR Critical Care Time Critical Care Time: Yes Total Critical Care Time: 30 I have personally spent 30 minutes of critical care time in the direct management of this patient. This includes bedside care, interpretation of diagnostic studies, and testing, discussion with consultants, patient, and family members, and other required patient management activities. This 30 minutes is in excess of all separately billable procedures. Discharge Plan Visit Data *Final* Discharge Date/Time: 06/14/19 17:55 Chief Complaint: Shortness of Breath/Dyspnea ED Provider: Aj Capps Discharge Problem: Hypoxic, Tachycardia, Pleural effusion, Tachypnea, Atrial fibrillation with RVR Patient Disposition: Admitted As Inpatient Discharge Instructions Interventions: ED Discharge Assessment Last Done: 06/14/19 17:55 The scribe's documentation has been prepared under my direction and personally reviewed by me in its entirety. I confirm that the note above accurately reflects all work, treatment, procedures, and medical decision making performed by me.
[2019-06-14] MEDS ORDERED: DAPTOmycin 400 MG in SYRINGE 0 ML IV ONE (19:45)
[2019-06-14] MEDS: HYDROCORTISONE SOD 25 MG in SYRINGE 0 ML IV SCH (19:48)
[2019-06-14] MEDS: ROPINIROLE HCL 1 MG TABLET PO SCH (19:49)
[2019-06-14] MEDS ORDERED: HYDROCORTISONE 10 MG TAB PO SCH (21:00)
[2019-06-14] MEDS ORDERED: INFLUENZA ADMINISTRATION CHARGE ONE (21:00)
[2019-06-14] MEDS ORDERED: INFLUENZA VIRUS QUAD VACCINE 0.5 ML SYR IM ONE (21:00)
[2019-06-14] MEDS: CEFEPIME 1,000 MG in SYRINGE 0 ML IV SCH (21:26)
[2019-06-14] MEDS: WARFARIN SOD 2 MG TAB PO SCH (21:27)
[2019-06-14] MEDS: carvediloL 6.25 MG TAB PO SCH (21:28)
[2019-06-14] MEDS ORDERED: Nursing to Pharmacy Communication ONE ×2 (22:08→23:19)
[2019-06-15] MEDS ORDERED: FUROSEMIDE 20 MG in SYRINGE 0 ML IV ONE (05:30)
[2019-06-15 06:47] LABS: Hematocrit (blood only) 30.1 % (37-47); Hemoglobin 9.4 g/dL (12.0-16.0); Mean Corpuscular Hemoglobin 27.5 pg (25-34); Mean Corpuscular Hgb Conc 31.2 g/dL (32-36); Mean Platelet Volume 11.1 fL (7.4-10.4); Platelet Count 192 K/uL (130-400); RDW Coefficient of Variation 22.2 % (11.5-14.5); RDW Standard Deviation 57.9 fL (36.4-46.3); Red Blood Count 3.42 M/uL (4.2-5.4); White Blood Count 6.43 K/uL (4.8-10.8)
[2019-06-15 06:57] LABS: Prothrombin Time 28.6 Seconds (9.0-12.0)
[2019-06-15 07:28] LABS: Albumin Level 1.9 gm/dl (3.4-5.0); BUN Creatinine Ratio 27.9 (10-20); Calcium 7.5 mg/dl (8.5-10.1); Est GFR (African American) 64.4; Est GFR (Non-African American) 55.5; Potassium 3.3 mmol/L (3.5-5.1)
[2019-06-15 07:38] LABS: Albumin Globulin Ratio 0.8 (0.9-2); Bilirubin,Total 1.3 mg/dl (0.2-1); Globulin 2.5 gm/dl (2.5-4.0); Thyroid Stimulating Hormone 1.95 uIu/ml (0.300-4.500); Total Protein 4.4 gm/dl (6.4-8.2)
[2019-06-15] MEDS ORDERED: POTASSIUM CHLORIDE 20 MEQ TABCR PO STA (07:38)
--- NOTE | 2019-06-15 07:43 | XRay Report ---
XR chest 1V portable HISTORY: Shortness of breath. Volume Overload COMPARISON: None. FINDINGS: Small to moderate left pleural effusion and left basilar densities, unchanged. The heart re georgette mildly enlarged. No pneumothorax. Trace right pleural effusion persists. There are poststernoto my changes. Mild central pulmonary vascular congestion without overt edema. This remains unchanged. IMPRESSION: No significant change in the mild central pulmonary vascular congestion and bilateral pleural effusio ns. Electronically signed by: Alex Desouza M.D. 06/15/2019 7:42 AM
[2019-06-15] MEDS: CHOLECALCIFEROL 1,000 UNITS TAB PO SCH (08:14)
[2019-06-15] MEDS: FAMOTIDINE 20 MG TAB PO SCH (08:14)
[2019-06-15] MEDS: carvediloL 6.25 MG TAB PO SCH (08:14)
[2019-06-15] MEDS: FLUTICASONE PROPIONATE NA SPR 16 GM BTL SCH ×2 (08:15→08:16)
[2019-06-15] MEDS: HYDROCORTISONE SOD 25 MG in SYRINGE 0 ML IV SCH ×2 (08:15→20:33)
[2019-06-15] MEDS: ASPIRIN 81 MG ECTAB PO SCH (08:15)
[2019-06-15] MEDS ORDERED: FUROSEMIDE 20 MG in SYRINGE 0 ML IV SCH (09:00)
[2019-06-15] MEDS ORDERED: METOPROLOL SUCC 50MG EXT REL TAB PO SCH (09:00)
[2019-06-15] MEDS ORDERED: predniSONE 5 MG TAB PO SCH (09:00)
[2019-06-15] MEDS ORDERED: FUROSEMIDE 20 MG TAB PO SCH (09:00)
[2019-06-15] MEDS ORDERED: CLOPIDOGREL BISULFATE 75 MG TAB PO SCH (09:00)
--- NOTE | 2019-06-15 10:01 | Hospitalist Progress Note ---
Date of Service June 15, 2019 Assessment & Plan (1) Acute diastolic heart failure: * Admit to Telemetry- pt s/p subtotal colectomy [facility] secondary to c. diff colitis * EKG Afib with RVR- likely secondary atrial fibrillation and volume overload, possible Addisonian crisis type picture given chronic prednisone use without stress dose steroids during previous hospitalization * CXR with increasing left pleural effusion, small right effusion. Repeat CXR without improvement * Cardizem gtt d/c'd overnight by resident service for low BP * Repeat ECHO * Repeat CXR * Weight 143lb currently (down 3lb)- weight at discharge 127lb on 05/27/19 * Lasix 20mg - on hold for BP * Strict I&O * Daily Weights- standing scale * Cardiology Consult - Dig per cardiology rec- appreciate continued input * UTI- UA+ for nitrite, 2+ leuk esterase--> given patient's recent medical history , empiric treatment with Cefepime and Dapto x 1 * Stress dose steroids- Hydrocortisone 12.5mg IV BID * Elevated liver enzymes, likely secondary to hepatic congestion- Bili and alk phos trending down on AM labs--> will continue to monitor * CBC, CMP in AM (2) Atrial fibrillation with RVR: * EKG on admission afib with rvr- likely secondary to volume overload, acute chf, UTI * Patient switched to Metoprolol prior to re-admission--> will continue metoprolol 75mg QAM * Dig per cardiology rec- appreciate continued input (3) Bilateral pleural effusion: * As above- Lasix IV, repeat CXR, daily weights, I&Os * May need to consider thoracentesis pending improvement with diuresis (4) UTI (urinary tract infection): * As above * Given recent hospitalizations, will cover empirically for pseudomonas with Cefepime * Dapto x 1 (5) Rheumatoid arthritis: * Patient currently not taking methotrexate * Immunosuppressed with daily 5mg prednisone- will give stress dose steroids during admission * Continue Hydrocortisone 12.5mg IV BID (6) CAD (coronary artery disease): * Hx CABG, Mitral Valve Repair, as above * Continue home medications (7) Sciatica: * Per history (8) Multiple lung nodules on CT: * Per history * Has had biopsy in past, benign (9) History of mitral valve repair: * CABG and valve repair [facility] 7 years ago * Continue home medications (10) Ileostomy, has currently: * As above * Ileostomy S/P Subtotal colectomy [facility] last week * Record ostomy output- may need something to slow transit pending (11) C. difficile colitis: * As above (12) DVT prophylaxis: * Patient on coumadin * INR therapeutic - 2.5 * Continue coumadin * INR in AM Supervising Physician Co-Signing Physician Notes Attending Attestation & Admission Note: Pt seen/examined, chart reviewed, care plan d/w FREEMAN Pressley. I agree w/ the hess components of her documentation. 79yo female with numerous medical problems including CAD, h/o CABG, MVR, a.fib, steroid-dependent RA - recent hospital stay at [facility] for toxic megacolon & subtotal colectomy - now with possible UTI, acute/chronic diastolic CHF, rapid a.fib. Feels much better today. More energy. Appetite improved. Breathing ok. Still with uncontrolled a.fib. VS - tachy, mildly low BPs still, afebrile gen - frail appearing but overall appearance improved today heart - tachy, s1, s2, irregularly irregular lungs - decreased BS left base, rales right base - slightly better today abd - soft, ileostomy in place with brown stool (liquid), BS+, NT ext - 2+ edema b/l A/P: 1. acute hypoxic respiratory failure - 2nd to acute/chronic diastolic CHF - 20 pounds volume overloaded from previous admission at [facility]. Improved. O2 weaned. Cont diuresis. 2. left-sided pleural effusion - worse than previous cxr but will follow for now. 3. possible UTI - cx is still pending; cont cefepime to cover for hospital acquired gram negatives. 4. a.fib with RVR - appreciate cardiology input; dig load today; cont coumadin. 5. steroid-dependent RA - cont stress dose steroids another 1-2 days then start weaning. 6. CKD stage 3 - stable. 7. recent toxic megacolon 2nd to c diff colitis s/p subtotal colectomy and ileostomy formation. 8. hypoalbuminemia - boost BID. PT, OT Jesus Berg MD Subjective Patient evaluated at bedside with family. Patient states she is feeling much better. She states she is concerned that if she goes back to [facility] that she may have another panic attack she is worried that she will be told "they can't handle that here" and send her to an emergency room. She denies chest pain, but does continue to have shortness of breath. 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 Neurologic: + generalized weakness; no dizziness and no abnormal speech Psychiatric: + anxiety Physical Exam Constitutional: + frail appearing and cooperative; no acute distress Eyes: PERRL, conjunctivae normal, anicteric sclerae Neck: trachea midline, no thyromegaly Respiratory: + tachypneic (afib 90-120s on telemetry); no labored breathing, no audible wheezes and no stridor Auscultation: + diminished lung sounds (bilaterally, left significantly >> right) and + wheezes Cardiovascular: Rate/Rhythm: + tachycardic and + irregularly irregular Vessels: + JVD Extremities: + edema (1+ bilateral lower extremity) Gastrointestinal (Abdomen): Inspection/Auscultation: normal bowel sounds Percussion/Palpation: abdomen soft and + tympanic to percussion; abdomen nontender Musculoskeletal: no cyanosis or clubbing, extremities motor strength 5/5 Skin: no rashes, warm and dry Neurologic: PERRL, EOMI, accommodation nl, no face palsy, no dysarthria Psychiatric: Mood: + anxious mood (when discussing return to [facility]) Results & Data Vital Signs (Past 12 Hours) Vital Signs Temp Pulse Pulse Resp BP Pulse Ox 06/15/19 07:14 36.4 C L 116 H 20 105/71 99 06/15/19 03:31 36.1 C L 96 H 25 H 99/65 L 95 06/15/19 01:53 87 06/14/19 23:21 36.2 C L 100 H 24 98/66 L 93 Laboratory Results 06/15/19 06/15/19 06/15/19 Range/Units 06:37 06:37 06:37 WBC (4.8-10.8) K/uL RBC (4.2-5.4) M/uL Hgb (12.0-16.0) g/dL Hct (37-47) % MCV (80-100) fL MCH (25-34) pg MCHC (32-36) g/dL RDW Std Deviation (36.4-46.3) fL RDW Coeff of Nina (11.5-14.5) % Plt Count (130-400) K/uL MPV (7.4-10.4) fL Immature Gran % (Auto) % Neut % (Auto) % Lymph % (Auto) % [place] % (Auto) % Eos % (Auto) % Baso % (Auto) % Immature Gran # (Auto) (0.00-0.02) K/uL Neut # (Auto) (1.4-6.5) K/uL Lymph # (Auto) (1.2-3.4) K/uL [place] # (Auto) (0.11-0.59) K/uL Eos # (Auto) (0-0.5) K/uL Baso # (Auto) (0-0.2) K/uL Target Cells Ovalocytes PT 28.6 H (9.0-12.0) Seconds INR 3.0 H (0.9-1.1) APTT (21.0-31.0) Seconds PTT Ratio Sodium 143 (136-145) mmol/L Potassium 3.3 L (3.5-5.1) mmol/L Chloride 111 H (98-107) mmol/L Carbon Dioxide 24 (21-32) mmol/L Anion Gap 8.0 (3-11) BUN 27 H (7-18) mg/dl Creatinine 0.97 (0.6-1.2) mg/dl Est Cr Clr Drug Dosing 38.0 Est GFR ( Amer) 64.4 Est GFR (Non-Af Amer) 55.5 BUN/Creatinine Ratio 27.9 H (10-20) Glucose 113 H (70-99) mg/dl Calcium 7.5 L (8.5-10.1) mg/dl Total Bilirubin 1.3 H (0.2-1) mg/dl AST 31 (15-37) U/L ALT 18 (12-78) U/L Alkaline Phosphatase 193 H (45-117) U/L Ammonia < 10.0 L (11-32) umol/L Troponin I (0-0.045) ng/ml Total Protein 4.4 L (6.4-8.2) gm/dl Albumin 1.9 L (3.4-5.0) gm/dl Globulin 2.5 (2.5-4.0) gm/dl Albumin/Globulin Ratio 0.8 L (0.9-2) TSH 1.950 (0.300-4.500) uIu/ml Urine Color Urine Appearance (Clear) Urine pH (4.5-7.5) Ur Specific [place] (1.000-1.030) Urine Protein (Negative) Urine Glucose (UA) (Negative) Urine Ketones (Negative) Urine Blood (Negative) Urine Nitrite (Negative) Urine Bilirubin (Negative) Urine Urobilinogen (Negative) Ur Leukocyte Esterase (Negative) Urine WBC (Auto) (0-5) /hpf Urine RBC (Auto) (0-4) /hpf U Hyaline Cast (Auto) (0-5) /lpf U Epithel Cells (Auto) (0-5) /lpf Urine Bacteria (Auto) (Negative) Ur Renal Epithelial Cell Urine Mucus (None Prsent) Influenza Type A (PCR) (Neg) Influenza Type B (PCR) (Neg) 06/15/19 06/14/19 06/14/19 Range/Units 06:37 13:45 13:13 WBC 6.43 (4.8-10.8) K/uL RBC 3.42 L (4.2-5.4) M/uL Hgb 9.4 L (12.0-16.0) g/dL Hct 30.1 L (37-47) % MCV 88.0 (80-100) fL MCH 27.5 (25-34) pg MCHC 31.2 L (32-36) g/dL RDW Std Deviation 57.9 H (36.4-46.3) fL RDW Coeff of Nina 22.2 H (11.5-14.5) % Plt Count 192 (130-400) K/uL MPV 11.1 H (7.4-10.4) fL Immature Gran % (Auto) % Neut % (Auto) % Lymph % (Auto) % [place] % (Auto) % Eos % (Auto) % Baso % (Auto) % Immature Gran # (Auto) (0.00-0.02) K/uL Neut # (Auto) (1.4-6.5) K/uL Lymph # (Auto) (1.2-3.4) K/uL [place] # (Auto) (0.11-0.59) K/uL Eos # (Auto) (0-0.5) K/uL Baso # (Auto) (0-0.2) K/uL Target Cells Ovalocytes PT 24.0 H (9.0-12.0) Seconds INR 2.5 H (0.9-1.1) APTT 36.5 H (21.0-31.0) Seconds PTT Ratio 1.3 Sodium (136-145) mmol/L Potassium (3.5-5.1) mmol/L Chloride (98-107) mmol/L Carbon Dioxide (21-32) mmol/L Anion Gap (3-11) BUN (7-18) mg/dl Creatinine (0.6-1.2) mg/dl Est Cr Clr Drug Dosing Est GFR ( Amer) Est GFR (Non-Af Amer) BUN/Creatinine Ratio (10-20) Glucose (70-99) mg/dl Calcium (8.5-10.1) mg/dl Total Bilirubin (0.2-1) mg/dl AST (15-37) U/L ALT (12-78) U/L Alkaline Phosphatase (45-117) U/L Ammonia (11-32) umol/L Troponin I (0-0.045) ng/ml Total Protein (6.4-8.2) gm/dl Albumin (3.4-5.0) gm/dl Globulin (2.5-4.0) gm/dl Albumin/Globulin Ratio (0.9-2) TSH (0.300-4.500) uIu/ml Urine Color [place] Urine Appearance Clear (Clear) Urine pH 5.0 (4.5-7.5) Ur Specific [place] 1.020 (1.000-1.030) Urine Protein Trace H (Negative) Urine Glucose (UA) Negative (Negative) Urine Ketones Negative (Negative) Urine Blood 3+ H (Negative) Urine Nitrite Positive A (Negative) Urine Bilirubin Negative (Negative) Urine Urobilinogen Negative (Negative) Ur Leukocyte Esterase 2+ H (Negative) Urine WBC (Auto) 10-30 H (0-5) /hpf Urine RBC (Auto) >30 H (0-4) /hpf U Hyaline Cast (Auto) 1-5 (0-5) /lpf U Epithel Cells (Auto) >30 H (0-5) /lpf Urine Bacteria (Auto) 1+ H (Negative) Ur Renal Epithelial Cell Not Reportable Urine Mucus Present A (None Prsent) Influenza Type A (PCR) (Neg) Influenza Type B (PCR) (Neg) 06/14/19 06/14/19 06/14/19 Range/Units 13:13 12:52 12:45 WBC 8.62 (4.8-10.8) K/uL RBC 3.89 L (4.2-5.4) M/uL Hgb 10.6 L (12.0-16.0) g/dL Hct 34.3 L (37-47) % MCV 88.2 (80-100) fL MCH 27.2 (25-34) pg MCHC 30.9 L (32-36) g/dL RDW Std Deviation 57.3 H (36.4-46.3) fL RDW Coeff of Nina 21.9 H (11.5-14.5) % Plt Count 193 (130-400) K/uL MPV 11.3 H (7.4-10.4) fL Immature Gran % (Auto) 1.0 % Neut % (Auto) 79.7 % Lymph % (Auto) 11.7 % [place] % (Auto) 7.4 % Eos % (Auto) 0.0 % Baso % (Auto) 0.2 % Immature Gran # (Auto) 0.09 H (0.00-0.02) K/uL Neut # (Auto) 6.86 H (1.4-6.5) K/uL Lymph # (Auto) 1.01 L (1.2-3.4) K/uL [place] # (Auto) 0.64 H (0.11-0.59) K/uL Eos # (Auto) 0.00 (0-0.5) K/uL Baso # (Auto) 0.02 (0-0.2) K/uL Target Cells 1+ Ovalocytes 1+ PT (9.0-12.0) Seconds INR (0.9-1.1) APTT (21.0-31.0) Seconds PTT Ratio Sodium 144 (136-145) mmol/L Potassium 3.8 (3.5-5.1) mmol/L Chloride 112 H (98-107) mmol/L Carbon Dioxide 24 (21-32) mmol/L Anion Gap 8.0 (3-11) BUN 28 H (7-18) mg/dl Creatinine 1.06 (0.6-1.2) mg/dl Est Cr Clr Drug Dosing Not Reportable Est GFR ( Amer) 57.8 Est GFR (Non-Af Amer) 49.9 BUN/Creatinine Ratio 26.2 H (10-20) Glucose 102 H (70-99) mg/dl Calcium 8.0 L (8.5-10.1) mg/dl Total Bilirubin 1.4 H (0.2-1) mg/dl AST 37 (15-37) U/L ALT 20 (12-78) U/L Alkaline Phosphatase 232 H (45-117) U/L Ammonia (11-32) umol/L Troponin I < 0.015 (0-0.045) ng/ml Total Protein 5.1 L (6.4-8.2) gm/dl Albumin 2.0 L (3.4-5.0) gm/dl Globulin 3.1 (2.5-4.0) gm/dl Albumin/Globulin Ratio 0.6 L (0.9-2) TSH (0.300-4.500) uIu/ml Urine Color Urine Appearance (Clear) Urine pH (4.5-7.5) Ur Specific [place] (1.000-1.030) Urine Protein (Negative) Urine Glucose (UA) (Negative) Urine Ketones (Negative) Urine Blood (Negative) Urine Nitrite (Negative) Urine Bilirubin (Negative) Urine Urobilinogen (Negative) Ur Leukocyte Esterase (Negative) Urine WBC (Auto) (0-5) /hpf Urine RBC (Auto) (0-4) /hpf U Hyaline Cast (Auto) (0-5) /lpf U Epithel Cells (Auto) (0-5) /lpf Urine Bacteria (Auto) (Negative) Ur Renal Epithelial Cell Urine Mucus (None Prsent) Influenza Type A (PCR) Neg for Influ A (Neg) Influenza Type B (PCR) Neg for Influ B (Neg) PG Care Time/CCT Total # of Minutes Spent Total Time Spent with Patient: Total time spent is greater than 50% in coordination of care (as documented) at patient's floor/unit and/or counseling patient: 45 (1) CAD (coronary artery disease) Associated angina: without angina Coronary Disease-Associated Artery/Lesion type: unspecified vessel or lesion type [place] vs. transplanted heart: [place] heart Qualified Code(s): I25.10 - Atherosclerotic heart disease of [place] coronary artery without angina pectoris
--- NOTE | 2019-06-15 11:32 | Consultation Report ---
DATE OF CONSULTATION: 06/15/2019 REQUESTING: Cydney Pressley. CONSERVATION OF RESOURCES COMMISSIONER: Hector Foote DO, [facility] for Dr. Pepe Garcia who most recently saw the patient in 02/2019. REASON FOR CONSULTATION: Atrial fibrillation with a rapid ventricular response and diastolic heart failure. HISTORY OF PRESENT ILLNESS: The history is obtained both from the patient and the chart. She has had a very complicated last 6-9 months with regards to healthcare and unfortunately has been in multiple institutions for which none of the records are completely available. She was discharged from [facility] on 05/27 with a baseline weight of 127 pounds and she was admitted with a weight of 147 pounds. She notes increasing lower extremity edema. Yesterday, she was doing physical therapy. She had a sudden onset of feeling short of breath and felt like she was having a panic attack because she could not breathe. She denies any chest pain, chest pressure, or chest heaviness. She denies any lightheadedness or dizziness. She sleeps on 1 pillow normally. She notes her appetite has been relatively stable, although it sounds like she consumes a fair amount of salty foods. In addition, she was found to have urinary tract infection. She denies a cough currently and this morning, she states she feels relatively well. The rest of a complete review of systems is otherwise negative. PAST MEDICAL HISTORY: 1. Ccnhx-xr-iukivmo diastolic heart failure. 2. Chronic atrial fibrillation, on anticoagulation with Coumadin. 3. New bilateral pleural effusions. 4. Urinary tract infections. 5. Elevated LFTs. 6. Rheumatoid arthritis. 7. Coronary artery disease, status post CABG and mitral valve repair in [place]. 8. Multiple pulmonary lung nodules. 9. Ileostomy, status post subtotal colectomy in [place] last week secondary to C. diff colitis. 10. Preserved left ventricular systolic function. SOCIAL HISTORY: She normally lives at home with her grandson helping her. MEDICATIONS: Reviewed in the electronic medical record. ALLERGIES: LORAZEPAM AND PROMETHAZINE. FAMILY HISTORY: Positive for colon cancer. PHYSICAL EXAMINATION: GENERAL: She is awake, alert. She is oriented. She does have some mild confusion, although for everything she has been through, she knew her history reasonably well. VITAL SIGNS: Her heart rate is 116, blood pressure 105/71, her temperature is 36.4, respirations are 20. She is 99% on room air. HEENT: Her sclerae are anicteric. Her hearing is mildly diminished. NECK: 2+ carotid upstrokes, although her heart rate was fast. LUNGS: Decreased breath sounds in the bases bilaterally. No rhonchi or wheezing. HEART: Irregular rate and rhythm. No appreciable murmurs or rubs. ABDOMEN: Soft, nontender, nondistended. Positive bowel sounds. EXTREMITIES: [id number] bilateral lower extremity edema to the mid tibia bilaterally. ELECTROCARDIOGRAM: Atrial fibrillation with a rapid ventricular response, low voltage QRS, nonspecific T-wave changes, PVC. LABORATORIES: Her hemoglobin is 9.4, her platelet count is 192. Sodium 143, potassium 3.3, BUN 27, creatinine 0.97. Her AST and ALT are normal. Her albumin is 1.9. Her TSH is normal. CHEST X-RAY: Mild central pulmonary vascular congestion with bilateral pleural effusions. IMPRESSION: 1. Atrial fibrillation with rapid ventricular response. 2. Chronic Coumadin anticoagulation. 3. Lbzjw-zq-ksaichf diastolic heart failure. 4. Significant weight gain of nearly 20 pounds in the last 2 weeks. 5. Urinary tract infection. 6. Status post ileostomy for Clostridium difficile colitis. PLAN: As was discussed with the hospitalist service, they have already switched her Coreg to Toprol. I think this is reasonable as we will be able to give her Toprol with less impact on her blood pressure. I did recommend a dose of Coreg this evening though, otherwise she will be very tachycardic tonight. Therefore, her Toprol can start tomorrow. We will dig load her with 0.25 mg of digoxin x3 doses today and then 0.125 mg starting tomorrow. She will remain on Coumadin for goal INR 2-3 with her 81 mg of aspirin. She does not need to be on triple therapy, and therefore, her Plavix can be discontinued. I would continue with her diuretics, we will have to watch her BUN and creatinine. She seems to be diuresing and her creatinine has not bumped. Her albumin is very low, which is going to increase the risk of third spacing. We will continue to follow with you.
[2019-06-15] MEDS: DIGOXIN 0.25 MG TAB PO SCH ×3 (12:29→20:33)
[2019-06-15] MEDS: WARFARIN SOD 2 MG TAB PO SCH (18:11)
[2019-06-15] MEDS: CEFEPIME 1,000 MG in SYRINGE 0 ML IV SCH (20:33)
[2019-06-15] MEDS: ROPINIROLE HCL 1 MG TABLET PO SCH (20:34)
[2019-06-15] MEDS ORDERED: carvediloL 6.25 MG TAB PO SCH (21:00)
[2019-06-16 05:47] LABS: Hematocrit (blood only) 29.9 % (37-47); Hemoglobin 9.3 g/dL (12.0-16.0); Mean Corpuscular Hemoglobin 27.4 pg (25-34); Mean Corpuscular Hgb Conc 31.1 g/dL (32-36); Mean Corpuscular Volume 88.2 fL (80-100); Mean Platelet Volume 10.6 fL (7.4-10.4); Platelet Count 217 K/uL (130-400); RDW Coefficient of Variation 22.5 % (11.5-14.5); RDW Standard Deviation 58.3 fL (36.4-46.3); Red Blood Count 3.39 M/uL (4.2-5.4); White Blood Count 7.23 K/uL (4.8-10.8)
[2019-06-16 06:09] LABS: Prothrombin Time 37.5 Seconds (9.0-12.0)
[2019-06-16 06:14] LABS: BUN Creatinine Ratio 28.8 (10-20); Calcium 7.7 mg/dl (8.5-10.1); Creatinine Clr Calc Pharmacy 39.6 ml/min; Est GFR (African American) 69.5; Potassium 2.9 mmol/L (3.5-5.1)
[2019-06-16 06:17] LABS: Albumin Globulin Ratio 0.8 (0.9-2); Globulin 2.4 gm/dl (2.5-4.0); Total Protein 4.4 gm/dl (6.4-8.2)
[2019-06-16] MEDS ORDERED: POTASSIUM CHLORIDE 10 MEQ TABCR PO STA (06:32)
[2019-06-16] MEDS ORDERED: FUROSEMIDE 20 MG in SYRINGE 0 ML IV ONE (07:29)
[2019-06-16] MEDS: WARFARIN SOD 2 MG TAB PO SCH (07:39)
[2019-06-16] MEDS: ASPIRIN 81 MG ECTAB PO SCH (09:04)
[2019-06-16] MEDS: FAMOTIDINE 20 MG TAB PO SCH (09:04)
[2019-06-16] MEDS: CHOLECALCIFEROL 1,000 UNITS TAB PO SCH (09:04)
[2019-06-16] MEDS: METOPROLOL SUCC 25MG EXT REL TAB PO SCH (09:05)
[2019-06-16] MEDS: HYDROCORTISONE SOD 25 MG in SYRINGE 0 ML IV SCH (09:05)
[2019-06-16] MEDS: FLUTICASONE PROPIONATE NA SPR 16 GM BTL SCH (09:05)
--- NOTE | 2019-06-16 10:32 | Cardiology Progress Note ---
Date of Service June 16, 2019 Subjective Feeling better. No CP. SOB is improving. No dizziness. No palps. Results & Data Vital Signs (Past 12 Hours) Vital Signs Temp Pulse Pulse Resp BP Pulse Ox 06/16/19 08:04 36.4 C L 81 18 118/76 95 06/16/19 03:35 36.7 C 82 17 107/66 94 06/16/19 00:09 80 06/15/19 23:40 36.8 C 85 17 93/60 L 93 PHYSICAL EXAMINATION: GENERAL: She is awake, alert. She is oriented. HEENT: Her sclerae are anicteric. Her hearing is mildly diminished. NECK: 2+ carotid upstrokes, although her heart rate was fast. LUNGS: Decreased breath sounds in the bases bilaterally. No rhonchi or wheezing. HEART: Irregular rate and rhythm. No appreciable murmurs or rubs. ABDOMEN: Soft, nontender, nondistended. Positive bowel sounds. EXTREMITIES: Mild lower extremity edema to the mid tibia bilaterally. IMPRESSION: 1. Atrial fibrillation with rapid ventricular response. 2. Chronic Coumadin anticoagulation. 3. Sphgg-ko-oacdcof diastolic heart failure. 4. Significant weight gain of nearly 20 pounds in the last 2 weeks. 5. Urinary tract infection. 6. Status post ileostomy for Clostridium difficile colitis. I would US her lungs and consider thoracentesis. Echo c/w low Cardiac outpt state and significant diastolic dysfunction Continue current meds -- HR improved Continue with diuresis as weight down 9 pounds Reluctant to consider aldactone with low K+ because of age and risk of KEDAR D/W primary service
--- NOTE | 2019-06-16 10:54 | Hospitalist Progress Note ---
Date of Service June 16, 2019 Assessment & Plan (1) Atrial fibrillation with RVR: * Admit to Telemetry- pt s/p colectomy [facility] secondary to c. diff colitis * EKG on admission afib with rvr- likely secondary to volume overload, acute chf, UTI, adrenal insufficiency (? stress dose steroids during recent hospitalization) * Patient switched to Metoprolol prior to re-admission--> will continue metoprolol 75mg QAM * Cardiology consult- patient initiated on dig- appreciate continued input * Per telemetry, patient afib 70--80bpm * CXR with increasing left pleural effusion, small right effusion. Repeat CXR without improvement. Patient remains on room air, oxygen saturation 95%. * Per discussion with pulmonology and thoracic surgery for possible thoracentesis- due to patient sat 95% on RA, will hold off intervention at this time. * Repeat ECHO consistent with low output and significant diastolic dysfunction * Weight 140lb currently (down 7.5lbs)- weight on admission 147lbs- weight at d/c from [facility] 127lb on 05/27/19 * Lasix 20mg IV * Strict I&O * Daily Weights- standing scale * Elevated liver enzymes, likely secondary to hepatic congestion- will continue to trend (2) Acute diastolic heart failure: * Admit to Telemetry- pt s/p subtotal colectomy [facility] secondary to c. diff colitis * EKG Afib with RVR- likely secondary atrial fibrillation and volume overload, possible [place] crisis type picture given chronic prednisone use without stress dose steroids during previous hospitalization * CXR with increasing left pleural effusion, small right effusion. Repeat CXR without improvement * Cardizem gtt d/c'd overnight by resident service for low BP * Repeat ECHO consistent with low output and significant diastolic dysfunction * Repeat CXR * Weight 143lb currently (down 3lb)- weight at discharge 127lb on 05/27/19 * Lasix 20mg - on hold for BP * Strict I&O * Daily Weights- standing scale * Cardiology Consult - Dig per cardiology rec- appreciate continued input * UTI- UA+ for nitrite, 2+ leuk esterase--> given patient's recent medical history , empiric treatment with Cefepime and Dapto x 1 * Stress dose steroids- Hydrocortisone 12.5mg IV BID * Elevated liver enzymes, likely secondary to hepatic congestion- Bili trending down, alk phos remains elevated-> will continue to monitor (3) Hypokalemia: * Potassium 2.9 today- given 40 MEQ x 1- repeat Potassium 3.3 * Patient received second dose of potassium ten minutes prior to repeat dose- will hold additional potassium at this time * Will continue to monitor - repeat labs in AM (4) Bilateral pleural effusion: * As above- Lasix IV, repeat CXR, daily weights, I&Os * May need to consider thoracentesis pending improvement with diuresis * Consult Pulm for Thoracentesis- spoke with Dr. Guido, Dr. Rebolledo. If emergent, will need to contact Dr. Nation, but if patient remains stable, finance consultant in AM to do (5) UTI (urinary tract infection): * UTI- UA+ for nitrite, 2+ leuk esterase--> given patient's recent medical history , empiric treatment with Cefepime and Dapto x 1 * Given recent hospitalizations, covering empirically for pseudomonas with Cefepime * Dapto x 1 on 06/14 * Pinpoint growth to date- reculturing pending (6) Rheumatoid arthritis: * Patient currently not taking methotrexate * Immunosuppressed with daily 5mg prednisone- will give stress dose steroids during admission * Continue Hydrocortisone 12.5mg IV BID- begin to wean Monday (7) Hypoalbuminemia: * Albumin on admission 2.0. Patient was 3.0 on 05/26 prior to colectomy * Albumin currently 2.0 * Educated patient on importance of proper nutrition, as last boost was on patient tray from dinner * Boost Breeze ordered (8) CAD (coronary artery disease): * Hx CABG, Mitral Valve Repair, as above * Continue home medications * Plavix discontinued per Cardiology (9) Sciatica: * Per history (10) Multiple lung nodules on CT: * Per history * Has had biopsy in past, benign (11) History of mitral valve repair: * CABG and valve repair [facility] 7 years ago * Continue home medications (12) Ileostomy, has currently: * As above * Ileostomy S/P colectomy [facility] last week * Record ostomy output (13) C. difficile colitis: * As above (14) Anxiety: * Will initiate low dose SSRI- Lexapro 10mg * May need to be titrated up slowly * Patient with adverse effects from benzos (15) DVT prophylaxis: * Patient on coumadin * INR therapeutic - 4.0 this morning- coumadin held * Repeat INR in AM * * Dispo: patient from [facility]- PT/OT ordered- patient likely not ready for discharge for at least 2-3 days. Supervising Physician Co-Signing Physician Notes Attending Attestation Note: Chart reviewed in detail, care plan d/w PA Cydney Pressley. I agree w/ the hess components of her documentation. 79yo female with numerous medical problems including CAD, h/o CABG, MVR, a.fib, steroid-dependent RA - recent hospital stay at [facility] for toxic megacolon due to c diff colitis & subtotal colectomy. Labs/vitals acceptable. A.fib slowly improving. Urine cx with zehra albicans - [id number] CFU. A/P: 1. acute hypoxic respiratory failure - 2nd to acute/chronic diastolic CHF - 20 pounds volume overloaded from previous admission at [facility]. Improved and O2 now weaned off. Cont diuresis. 2. left-sided pleural effusion - stable, relatively few symptoms from such. Could consider thoracentesis but would have to hold coumadin. Would simply follow for now. 3. possible UTI - ruled out; only c. albicans grew at low CFU. Would d/c cefepime and not treat the yeast. 4. a.fib with RVR - appreciate cardiology input; IMPROVED with BB, dig. INR 4 today; hold coumadin; INR am. 5. steroid-dependent RA - cont stress dose steroids another 1-2 days then start weaning. 6. CKD stage 3 - stable. 7. recent toxic megacolon 2nd to c diff colitis s/p subtotal colectomy and ileostomy formation. 8. hypoalbuminemia - boost BID. 9. acute/chronic diastolic CHF - cont diuresis. PT, OT -- at d/c return to [facility]?? Jesus Berg MD Subjective Patient evaluated this morning at bedside. Patient feels better today, slightly more energy, but she continues to state she feels anxious and weak, but has not been out of bed much. The patient states she believes her current problem is primarily anxiety, however discussion was had with patient regarding current heart failure and low blood pressure, which have hindered efforts to diurese the 20lb weight gain since last admission. She states she received her potassium this morning, and patient understands importance of normalizing her electrolytes for risk of cardiac arrhythmia. Discussion was had regarding difficulty in diuresing with low potassium level, and possible need for thoracentesis. She remains 95% on RA currently. Patient denies chest pain, shortness of breath, dizziness or palpitations currently. Review of Systems Constitutional: + weakness (from multiple hospitalizations); no fever and no chills Ear, Nose, Mouth, Throat: + sore throat; no tinnitus, no dizziness and no dysphagia Respiratory: no dyspnea and no sputum production Cardiovascular: + edema; no chest pain Gastrointestinal: + abdominal pain; no nausea and no vomiting recent ileostomy Musculoskeletal: chronic compression fractures due to steroid use Neurologic: + generalized weakness; no dizziness and no abnormal speech Psychiatric: + anxiety Physical Exam Constitutional: + frail appearing and cooperative; no acute distress Eyes: PERRL, conjunctivae normal, anicteric sclerae Neck: trachea midline, no thyromegaly Respiratory: + tachypneic (afib 90-120s on telemetry); no labored breathing, no audible wheezes and no stridor Auscultation: + diminished lung sounds (bilaterally, left significantly >> right) and + wheezes Cardiovascular: Rate/Rhythm: + tachycardic and + irregularly irregular Vessels: + JVD Extremities: + edema (1+ bilateral lower extremity) Gastrointestinal (Abdomen): Inspection/Auscultation: normal bowel sounds Percussion/Palpation: abdomen soft and + tympanic to percussion; abdomen nontender Ostomy present RLQ, liquid brown stool present, no hematochezia or melena Musculoskeletal: no cyanosis or clubbing, extremities motor strength 5/5 Skin: no rashes, warm and dry Neurologic: PERRL, EOMI, accommodation nl, no face palsy, no dysarthria Psychiatric: Mood: + anxious mood (when discussing return to [facility]) Results & Data Vital Signs (Past 12 Hours) Vital Signs Temp Pulse Pulse Resp BP Pulse Ox 06/16/19 08:04 36.4 C L 81 18 118/76 95 06/16/19 03:35 36.7 C 82 17 107/66 94 06/16/19 00:09 80 06/15/19 23:40 36.8 C 85 17 93/60 L 93 Laboratory Results 0906/16/19 06/16/19 Range/Units 11:59 05:24 05:24 WBC (4.8-10.8) K/uL RBC (4.2-5.4) M/uL Hgb (12.0-16.0) g/dL Hct (37-47) % MCV (80-100) fL MCH (25-34) pg MCHC (32-36) g/dL RDW Std Deviation (36.4-46.3) fL RDW Coeff of Nina (11.5-14.5) % Plt Count (130-400) K/uL MPV (7.4-10.4) fL PT 37.5 H (9.0-12.0) Seconds INR 4.0 H (0.9-1.1) Sodium 144 (136-145) mmol/L Potassium 3.3 L 2.9 L (3.5-5.1) mmol/L Chloride 111 H (98-107) mmol/L Carbon Dioxide 26 (21-32) mmol/L Anion Gap 7.0 (3-11) BUN 26 H (7-18) mg/dl Creatinine 0.91 (0.6-1.2) mg/dl Est Cr Clr Drug Dosing 39.6 ml/min Est GFR ( Amer) 69.5 Est GFR (Non-Af Amer) 60.0 BUN/Creatinine Ratio 28.8 H (10-20) Glucose 102 H (70-99) mg/dl Calcium 7.7 L (8.5-10.1) mg/dl Total Bilirubin 1.0 (0.2-1) mg/dl AST 37 (15-37) U/L ALT 19 (12-78) U/L Alkaline Phosphatase 227 H (45-117) U/L Total Protein 4.4 L (6.4-8.2) gm/dl Albumin 2.0 L (3.4-5.0) gm/dl Globulin 2.4 L (2.5-4.0) gm/dl Albumin/Globulin Ratio 0.8 L (0.9-2) 06/16/19 Range/Units 05:24 WBC 7.23 (4.8-10.8) K/uL RBC 3.39 L (4.2-5.4) M/uL Hgb 9.3 L (12.0-16.0) g/dL Hct 29.9 L (37-47) % MCV 88.2 (80-100) fL MCH 27.4 (25-34) pg MCHC 31.1 L (32-36) g/dL RDW Std Deviation 58.3 H (36.4-46.3) fL RDW Coeff of Nina 22.5 H (11.5-14.5) % Plt Count 217 (130-400) K/uL MPV 10.6 H (7.4-10.4) fL PT (9.0-12.0) Seconds INR (0.9-1.1) Sodium (136-145) mmol/L Potassium (3.5-5.1) mmol/L Chloride (98-107) mmol/L Carbon Dioxide (21-32) mmol/L Anion Gap (3-11) BUN (7-18) mg/dl Creatinine (0.6-1.2) mg/dl Est Cr Clr Drug Dosing ml/min Est GFR ( Amer) Est GFR (Non-Af Amer) BUN/Creatinine Ratio (10-20) Glucose (70-99) mg/dl Calcium (8.5-10.1) mg/dl Total Bilirubin (0.2-1) mg/dl AST (15-37) U/L ALT (12-78) U/L Alkaline Phosphatase (45-117) U/L Total Protein (6.4-8.2) gm/dl Albumin (3.4-5.0) gm/dl Globulin (2.5-4.0) gm/dl Albumin/Globulin Ratio (0.9-2) PG Care Time/CCT Total # of Minutes Spent Total Time Spent with Patient: Total time spent is greater than 50% in coordination of care (as documented) at patient's floor/unit and/or counseling patient:60 (1) CAD (coronary artery disease) Associated angina: without angina Coronary Disease-Associated Artery/Lesion type: unspecified vessel or lesion type [place] vs. transplanted heart: [place] heart Qualified Code(s): I25.10 - Atherosclerotic heart disease of [place] coronary artery without angina pectoris
[2019-06-16] MEDS ORDERED: POTASSIUM CHLORIDE 20 MEQ TABCR PO ONE (12:00)
[2019-06-16] MEDS ORDERED: POTASSIUM CHLORIDE 20 MEQ TABCR PO SCH ×2 (12:00→14:00)
[2019-06-16] MEDS: DEXAMETHASONE CONC 3.75 MG, NYSTATIN 30 ML, DiphenhydrAMINE Syrup 300 MG, ORA-SWEET SYR... PO PRN (12:07)
[2019-06-16] MEDS ORDERED: ESCITALOPRAM OXALATE 10 MG TAB PO SCH (14:15)
[2019-06-16] MEDS: DIGOXIN 0.125 MG TAB PO SCH (15:12)
[2019-06-16] MEDS: FUROSEMIDE 20 MG in SYRINGE 0 ML IV SCH (17:07)
[2019-06-16] MEDS: HYDROCORTISONE SOD 12.5 MG in SYRINGE 0 ML IV SCH (20:15)
[2019-06-16] MEDS: ROPINIROLE HCL 1 MG TABLET PO SCH (20:16)
[2019-06-17] MEDS: HYDROCORTISONE SOD 12.5 MG in SYRINGE 0 ML IV SCH ×2 (08:17→21:41)
[2019-06-17] MEDS: ASPIRIN 81 MG ECTAB PO SCH (08:17)
[2019-06-17] MEDS: CHOLECALCIFEROL 1,000 UNITS TAB PO SCH (08:17)
[2019-06-17] MEDS: FAMOTIDINE 20 MG TAB PO SCH (08:18)
[2019-06-17] MEDS: FLUTICASONE PROPIONATE NA SPR 16 GM BTL SCH (08:18)
[2019-06-17] MEDS: FUROSEMIDE 20 MG in SYRINGE 0 ML IV SCH ×2 (08:18→18:21)
[2019-06-17] MEDS: METOPROLOL SUCC 25MG EXT REL TAB PO SCH (08:18)
[2019-06-17 08:44] LABS: Basophils # (auto) 0.01 K/uL (0-0.2); Basophils % (auto) 0.1 %; Eosinophils # (auto) 0.04 K/uL (0-0.5); Eosinophils % (auto) 0.5 %; Hematocrit (blood only) 32.4 % (37-47); Immature Granulocytes # (auto) 0.02 K/uL (0.00-0.02); Immature Granulocytes % (auto) 0.3 %; Lymphocytes # (auto) 1.53 K/uL (1.2-3.4); Lymphocytes % (auto) 19.3 %; Mean Corpuscular Hemoglobin 27.7 pg (25-34); Mean Corpuscular Hgb Conc 30.9 g/dL (32-36); Mean Corpuscular Volume 89.8 fL (80-100); Mean Platelet Volume 10.2 fL (7.4-10.4); Monocytes # (auto) 0.85 K/uL (0.11-0.59); Monocytes % (auto) 10.7 %; Neutrophils # (auto) 5.47 K/uL (1.4-6.5); Neutrophils % (auto) 69.1 %; Platelet Count 270 K/uL (130-400); RDW Coefficient of Variation 23.4 % (11.5-14.5); RDW Standard Deviation 71.5 fL (36.4-46.3); Red Blood Count 3.61 M/uL (4.2-5.4); White Blood Count 7.92 K/uL (4.8-10.8)
[2019-06-17 08:52] LABS: Prothrombin Time 28.3 Seconds (9.0-12.0)
--- NOTE | 2019-06-17 08:52 | XRay Report ---
XR chest 1V portable CLINICAL HISTORY: pleural effusion COMPARISON STUDY: Chest CT May 23, 2019. Chest radiograph June 15, 2019. FINDINGS: Note is made of a right shoulder arthroplasty, median sternotomy wires and a prosthetic sonal ral valve. Cardiomegaly is noted. There is pulmonary vascular congestion. A small left pleural effusi on with left basilar opacity is noted. This has improved since exam of June 07, 2019. There is a trace right pleural effusion with mild hazy right basilar opacity. IMPRESSION: 1. Interval improvement in a small left pleural effusion with left basilar airspace opacity which may reflect consolidation or atelectasis. 2. Trace right pleural effusion. 3. Pulmonary vascular congestion. Electronically signed by: Cody Estrada M.D. 06/17/2019 8:51 AM
[2019-06-17 09:03] LABS: Hypochromasia Present; Ovalocytes 1+
[2019-06-17 09:17] LABS: Albumin Level 2.2 gm/dl (3.4-5.0); BUN Creatinine Ratio 25.7 (10-20); Calcium 8.1 mg/dl (8.5-10.1); Potassium 3.3 mmol/L (3.5-5.1)
[2019-06-17 09:21] LABS: Albumin Globulin Ratio 0.8 (0.9-2); Bilirubin,Total 1.1 mg/dl (0.2-1); Globulin 2.8 gm/dl (2.5-4.0)
--- NOTE | 2019-06-17 09:29 | Cardiology Progress Note ---
Date of Service June 17, 2019 Assessment & Plan (1) Acute diastolic heart failure: She certainly had some weight gain since her last admission. Her initial breathing difficulty appears to have resolved with diuresis. She is continuing on a twice daily dose of intravenous Lasix which would seem reasonable while she is an inpatient. We can continue to monitor her electrolytes and renal function closely. (2) Atrial fibrillation with RVR: Overall heart rates appear well controlled on her current dose of metoprolol. It seems digoxin was also added to her medical regimen. Her rhythm was surprisingly regular at the time of evaluation today. I think I will order an EKG to document her rhythm. She has continued on anticoagulation with warfarin. At the time of discharge she could easily be sent home on Toprol XL at the current dose. (3) History of mitral valve repair: She does have an element of mitral regurgitation based on her recent echocardiogram. (4) CAD (coronary artery disease): History of both percutaneous and surgical revascularization. No current symptoms to suggest ischemia or coronary insufficiency. as noted in Dr. Foote's initial note, she does not appear to have any indication for therapy with aspirin, Plavix and warfarin. Plavix could certainly be discontinued. Subjective This morning the patient claimed of feeling jittery. This was a whole-body sensation. She did not feel awareness of any irregularity in her heartbeat. She did not report breathing difficulty. She still convinced that the symptoms that brought her to the hospital were related to a panic attack. She continues to feel weak and did not report any ambulation yesterday. Review of Systems Review of Systems: Per HPI Physical Exam Physical Exam: She is alert and oriented x3. Mood affect appear normal. She answered all questions appropriately. HEENT: Sclerae are anicteric. Pupils are equal and reactive to light and accommodation. Extraocular movements were intact. Neuro: Cranial nerves intact Neck: Examination of the submandibular region did not reveal any significant lymphadenopathy. Carotids are palpable bilaterally and free of bruits on auscultation. There was no evidence of jugular venous distention. The thyroid was not enlarged. Lungs: Apices were clear. Normal respiratory effort. No use of accessory muscles. No expiratory wheezing. Cardiac: The rhythm was regular. S1 and S2 were normal. There are no murmurs on examination. The PMI was not markedly displaced on palpation. Abdomen: The abdomen was soft and nontender. Extremities: Patient has bilateral radial pulses that are equal in intensity. There is no evidence cyanosis or clubbing. There was no evidence of significant peripheral edema bilaterally. Skin: There are no rashes noted on examination today. Results & Data Vital Signs (Past 12 Hours) Vital Signs Temp Pulse Pulse Resp BP Pulse Ox 06/17/19 07:29 36.8 C 79 16 131/82 94 06/17/19 03:22 36.4 C L 84 18 146/80 H 92 06/16/19 23:51 80 06/16/19 23:34 36.7 C 84 17 129/80 92 Laboratory Results Abnormal Lab Results 06/16/19 06/17/19 06/17/19 11:59 08:32 08:32 WBC 7.92 RBC 3.61 L Hgb 10.0 L Hct 32.4 L MCV 89.8 MCH 27.7 MCHC 30.9 L RDW Std Deviation 71.5 H RDW Coeff of Nina 23.4 H Plt Count 270 MPV 10.2 Immature Gran % (Auto) 0.3 Neut % (Auto) 69.1 Lymph % (Auto) 19.3 Noble % (Auto) 10.7 Eos % (Auto) 0.5 Baso % (Auto) 0.1 Immature Gran # (Auto) 0.02 Neut # (Auto) 5.47 Lymph # (Auto) 1.53 Noble # (Auto) 0.85 H Eos # (Auto) 0.04 Baso # (Auto) 0.01 Hypochromasia Present Ovalocytes 1+ PT INR Sodium 145 Potassium 3.3 L 3.3 L Chloride 112 H Carbon Dioxide 26 Anion Gap 7.0 BUN 24 H Creatinine 0.95 Est Cr Clr Drug Dosing 38.0 Est GFR ( Amer) 66.0 Est GFR (Non-Af Amer) 57.0 BUN/Creatinine Ratio 25.7 H Glucose 95 Calcium 8.1 L Total Bilirubin 1.1 H AST 55 H ALT 33 Alkaline Phosphatase 281 H Total Protein 5.0 L Albumin 2.2 L Globulin 2.8 Albumin/Globulin Ratio 0.8 L 06/17/19 08:32 WBC RBC Hgb Hct MCV MCH MCHC RDW Std Deviation RDW Coeff of Nina Plt Count MPV Immature Gran % (Auto) Neut % (Auto) Lymph % (Auto) [place] % (Auto) Eos % (Auto) Baso % (Auto) Immature Gran # (Auto) Neut # (Auto) Lymph # (Auto) [place] # (Auto) Eos # (Auto) Baso # (Auto) Hypochromasia Ovalocytes PT 28.3 H INR 3.0 H Sodium Potassium Chloride Carbon Dioxide Anion Gap BUN Creatinine Est Cr Clr Drug Dosing Est GFR ( Amer) Est GFR (Non-Af Amer) BUN/Creatinine Ratio Glucose Calcium Total Bilirubin AST ALT Alkaline Phosphatase Total Protein Albumin Globulin Albumin/Globulin Ratio PG Care Time/CCT Total # of Minutes Spent Total Time Spent with Patient: Total time spent is greater than 50% in coordination of care (as documented) at patient's floor/unit and/or counseling patient: (1) CAD (coronary artery disease) Coronary Disease-Associated Artery/Lesion type: unspecified vessel or lesion type [place] vs. transplanted heart: [place] heart Associated angina: without angina Qualified Code(s): I25.10 - Atherosclerotic heart disease of [place] c oronary artery without angina pectoris
[2019-06-17] MEDS ORDERED: POTASSIUM CHLORIDE 20 MEQ TABCR PO STA (11:11)
--- NOTE | 2019-06-17 15:54 | Hospitalist Progress Note ---
Date of Service June 17, 2019 Assessment & Plan (1) Atrial fibrillation with RVR: pt s/p colectomy [facility] secondary to c. diff colitis EKG on admission afib with rvr- likely secondary to volume overload, acute chf, adrenal insufficiency Patient switched to Metoprolol prior to re-admission--> will continue metoprolol 75mg QAM Cardiology consult- patient initiated on dig, continue metoprolol (2) Acute diastolic heart failure: CXR initially with increasing left pleural effusion, small right effusion -Per discussion with pulmonology and thoracic surgery for possible thoracentesis- due to patient sat 95% on RA, will hold off intervention at this time. Repeat CXR 06/17 with continued pulmonary vascular congestion and interval improvement in a small left pleural effusion with left basilar airspace opacity which may reflect consolidation or atelectasis. Repeat ECHO consistent with low output and significant diastolic dysfunction Patient up about 20 pounds from discharge 05/27/19 at admission Continue IV furosemide 20 mg bid Strict I&O, Daily Weights- standing scale Elevated liver enzymes, likely secondary to hepatic congestion- Bili trending down, alk phos remains elevated-> will continue to monitor (3) Hypokalemia: K 3.3 this afternoon - replaced (4) Bilateral pleural effusion: As above- Lasix IV, daily weights, I&Os no indication for thoracentesis as above (5) Rheumatoid arthritis: Patient currently not taking methotrexate Immunosuppressed with daily 5mg prednisone- Continue Hydrocortisone 12.5mg IV BID- through tomorrow evening and then discontinue (6) Hypoalbuminemia: Albumin on admission 2.0. 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 difficile colitis: history of earlier in the month (12) Anxiety: continue Lexapro 10mg started here Patient with adverse effects from benzos (13) DVT prophylaxis: Patient on coumadin INR therapeutic - 3.0 this morning- Continue coumadin Initially concerned for UTI - UA+ for nitrite, 2+ leuk esterase--> given patient's recent medical history, was started empirically on Cefepime given recent hospitalizations, covering empirically for pseudomonas UC grew only zehra - will discontinue abx - patient received 4 days total treatment Dispo: patient from [facility]- PT/OT ordered- patient likely not ready for discharge for at least 2-3 days. Subjective Ms. Cedillo continues to feel very weak with some dizziness. She reports chronic vertigo. No blood in ostomy output. heart rates 70s-90s on monitor Review of Systems Review of Systems: All systems reviewed & are unremarkable except as noted in HPI & below Physical Exam Physical Exam: General: no distress Eyes: normal inspection, PERLL EENT: small scabbed/dried blood in bilateral ear canals, no active bleeding. Right tympanic membrane unable to be visualized due to cerumin, left typmpanic membrane pearly molina with cone of light at 7 o'clock Respiratory: chest non tender, clear to auscultation, normal breath sounds, no respiratory distress, no accessory muscle use Cardiac: regular rate and rhythm, no rub or gallop, no murmur, + edema lower extremities bilaterally GI/: active bowel sounds, no abd pain or tenderness, soft, non distended Extremities: normal range of motion, normal strength, non tender Neuro/Psych: alert and oriented x 3, normal mood and affect Skin: normal color, dry Results & Data Vital Signs (Past 12 Hours) Vital Signs Temp Pulse Resp BP Pulse Ox 06/17/19 15:28 36.6 C 75 18 120/76 95 06/17/19 11:27 36.4 C L 79 16 97/63 L 98 06/17/19 07:29 36.8 C 79 16 131/82 94 PG Care Time/CCT Total # of Minutes Spent Total Time Spent with Patient: Total time spent is greater than 50% in coordination of care (as documented) at patient's floor/unit and/or counseling patient: (1) CAD (coronary artery disease) Associated angina: without angina Coronary Disease-Associated Artery/Lesion type: unspecified vessel or lesion type [place] vs. transplanted heart: [place] heart Qualified Code(s): I25.10 - Atherosclerotic heart disease of [place] coronary artery without angina pectoris
[2019-06-17] MEDS: WARFARIN SOD 2 MG TAB PO SCH (18:20)
[2019-06-17] MEDS: DIGOXIN 0.125 MG TAB PO SCH (18:20)
[2019-06-17] MEDS: DEXAMETHASONE CONC 3.75 MG, NYSTATIN 30 ML, DiphenhydrAMINE Syrup 300 MG, ORA-SWEET SYR... PO PRN (18:29)
[2019-06-17] MEDS: ROPINIROLE HCL 1 MG TABLET PO SCH (21:41)
[2019-06-18 07:09] LABS: Hematocrit (blood only) 33.7 % (37-47); Hemoglobin 10.3 g/dL (12.0-16.0); Mean Corpuscular Hemoglobin 27.8 pg (25-34); Mean Corpuscular Hgb Conc 30.6 g/dL (32-36); Mean Corpuscular Volume 91.1 fL (80-100); Mean Platelet Volume 10.5 fL (7.4-10.4); Platelet Count 279 K/uL (130-400); RDW Coefficient of Variation 23.8 % (11.5-14.5); RDW Standard Deviation 76.7 fL (36.4-46.3); White Blood Count 6.18 K/uL (4.8-10.8)
[2019-06-18 07:23] LABS: INR 2.9 (0.9-1.1); Prothrombin Time 27.3 Seconds (9.0-12.0)
[2019-06-18 07:25] LABS: BUN Creatinine Ratio 23.8 (10-20); Calcium 7.8 mg/dl (8.5-10.1); Creatinine Clr Calc Pharmacy 43.8 ml/min; Est GFR (African American) 80.1; Est GFR (Non-African American) 69.1; Potassium 3.4 mmol/L (3.5-5.1)
[2019-06-18] MEDS: FAMOTIDINE 20 MG TAB PO SCH (10:06)
[2019-06-18] MEDS: FUROSEMIDE 20 MG in SYRINGE 0 ML IV SCH ×2 (10:06→16:07)
[2019-06-18] MEDS: HYDROCORTISONE SOD 12.5 MG in SYRINGE 0 ML IV SCH ×2 (10:06→20:16)
[2019-06-18] MEDS: ASPIRIN 81 MG ECTAB PO SCH (10:07)
[2019-06-18] MEDS: CHOLECALCIFEROL 1,000 UNITS TAB PO SCH (10:07)
[2019-06-18] MEDS: FLUTICASONE PROPIONATE NA SPR 16 GM BTL SCH (10:07)
[2019-06-18] MEDS: METOPROLOL SUCC 25MG EXT REL TAB PO SCH (10:07)
--- NOTE | 2019-06-18 14:35 | Hospitalist Progress Note ---
Date of Service June 18, 2019 Assessment & Plan (1) Atrial fibrillation with RVR: pt s/p colectomy [facility] secondary to c. diff colitis EKG on admission afib with rvr- likely secondary to volume overload, acute chf, adrenal insufficiency Patient switched to Metoprolol prior to re-admission--> will continue metoprolol 75mg QAM Cardiology consult- patient initiated on dig, continue metoprolol (2) Acute diastolic heart failure: CXR initially with increasing left pleural effusion, small right effusion -Per discussion with pulmonology and thoracic surgery for possible thoracentesis- due to patient sat 95% on RA, will hold off intervention at this time. Repeat CXR 06/17 with continued pulmonary vascular congestion and interval improvement in a small left pleural effusion with left basilar airspace opacity which may reflect consolidation or atelectasis. Repeat tomorrow morning Repeat ECHO consistent with low output and significant diastolic dysfunction Patient up about 20 pounds from discharge 05/27/19 at admission Continue IV furosemide 20 mg bid Strict I&O, Daily Weights- standing scale - down 7 kg from admission, 4600 mls Elevated liver enzymes, likely secondary to hepatic congestion- Bili trending down, alk phos remains elevated-> will continue to monitor (3) Hypokalemia: replaced (4) Bilateral pleural effusion: As above- Lasix IV, daily weights, I&Os no indication for thoracentesis as above (5) Rheumatoid arthritis: Patient currently not taking methotrexate Immunosuppressed with daily 5mg prednisone- Stress dosed, now discontinued (6) Hypoalbuminemia: Albumin on admission 2.0. Patient was 3.0 on 05/26 prior to colectomy Continue Boost, escapement matcher consult Reinforced necessity of protein intake with patient as she has not been drinking much of her Boost (7) CAD (coronary artery disease): Hx CABG, Mitral Valve Repair, as above Continue home medications Plavix discontinued per Cardiology (8) Multiple lung nodules on CT: Per history Has had biopsy in past, benign (9) History of mitral valve repair: CABG and valve repair [facility] 7 years ago Continue home medications (10) Ileostomy, has currently: As above Ileostomy S/P colectomy [facility] last week Record ostomy output (11) C. difficile colitis: history of earlier in the month (12) Anxiety: continue Lexapro 10mg started here Patient with adverse effects from benzos (13) DVT prophylaxis: Patient on coumadin INR therapeutic - 3.0 this morning- Continue coumadin Initially concerned for UTI - UA+ for nitrite, 2+ leuk esterase--> given patient's recent medical history, was started empirically on Cefepime given recent hospitalizations, covering empirically for pseudomonas UC grew only zehra -abx discontinued - patient received 4 days total treatment Dispo: patient from [facility]- PT/OT ordered- patient will likely be ready for discharge tomorrow Subjective Ms. Cedillo no longer has any sob. She feels very weak but was able to participate in therapy today. No other complaints Review of Systems Review of Systems: All systems reviewed & are unremarkable except as noted in HPI & below Physical Exam Physical Exam: General: no distress Eyes: normal inspection, PERLL Respiratory: chest non tender, clear to auscultation, normal breath sounds, no respiratory distress, no accessory muscle use Cardiac: regular rate and rhythm, no rub or gallop, no murmur, +2 pitting edema lower extremities GI/: active bowel sounds, no abd pain or tenderness, soft, non distended Extremities: normal range of motion, normal strength, non tender Neuro/Psych: alert and oriented x 3, normal mood and affect Skin: normal color, dry Results & Data Vital Signs (Past 12 Hours) Vital Signs Temp Pulse Resp BP Pulse Ox 06/18/19 10:50 36.8 C 80 18 112/72 95 06/18/19 07:36 36.4 C L 73 18 142/83 H 95 06/18/19 04:00 36.7 C 81 17 139/77 94 PG Care Time/CCT Total # of Minutes Spent Total Time Spent with Patient: Total time spent is greater than 50% in coordination of care (as documented) at patient's floor/unit and/or counseling patient: (1) CAD (coronary artery disease) Coronary Disease-Associated Artery/Lesion type: unspecified vessel or lesion type [place] vs. transplanted heart: [place] heart Associated angina: without angina Qualified Code(s): I25.10 - Atherosclerotic heart disease of [place] coronary artery without angina pectoris
[2019-06-18] MEDS ORDERED: POTASSIUM CHLORIDE 20 MEQ TABCR PO STA (14:42)
--- NOTE | 2019-06-18 14:48 | Cardiology Progress Note ---
Date of Service June 18, 2019 Assessment & Plan (1) Acute diastolic heart failure: She has had a pretty effective diuresis. She was net negative over 2 liters yesterday. I think we can reduce her daily Lasix to single dose. (2) Atrial fibrillation with RVR: Overall heart rates appear well controlled on her current dose of metoprolol and digoxin. (3) History of mitral valve repair: She does have an element of mitral regurgitation based on her recent echocardiogram. (4) CAD (coronary artery disease): History of both percutaneous and surgical revascularization. No current symptoms to suggest ischemia or coronary insufficiency. Continue on aspirin and warfarin Subjective This morning the patient claims to be feeling tired. She reported ambulating yesterday but according to the nursing staff she did not. She denies any breathing trouble currently. She is not aware of any palpitations. No symptoms of chest pain. She felt like the lower extremities were swollen. Review of Systems Review of Systems: Per HPI Physical Exam Physical Exam: She is alert and oriented x3. Mood affect appear normal. She answered all questions appropriately. HEENT: Sclerae are anicteric. Pupils are equal and reactive to light and accommodation. Extraocular movements were intact. Neuro: Cranial nerves intact Lungs: Lungs are clear to auscultation bilaterally. There are no rales wheezes or rhonchi. She has normal respiratory effort without use of accessory muscles. There is normal pulmonary excursion. Cardiac: The rhythm was irregular. S1 and S2 were normal. There are no murmurs on examination. The PMI was not markedly displaced on palpation. Abdomen: The abdomen was soft and nontender. Extremities: Patient has bilateral radial pulses that are equal in intensity. There is no evidence cyanosis or clubbing. Skin: There are no rashes noted on examination today. Results & Data Vital Signs (Past 12 Hours) Vital Signs Temp Pulse Resp BP Pulse Ox 06/18/19 10:50 36.8 C 80 18 112/72 95 06/18/19 07:36 36.4 C L 73 18 142/83 H 95 06/18/19 04:00 36.7 C 81 17 139/77 94 Laboratory Results Abnormal Lab Results 06/18/19 06/18/19 06/18/19 06:23 06:48 06:48 WBC 6.18 RBC 3.70 L Hgb 10.3 L Hct 33.7 L MCV 91.1 MCH 27.8 MCHC 30.6 L RDW Std Deviation 76.7 H RDW Coeff of Nina 23.8 H Plt Count 279 MPV 10.5 H PT 27.3 H INR 2.9 H Sodium 145 Potassium 3.4 L Chloride 110 H Carbon Dioxide 28 Anion Gap 7.0 BUN 19 H Creatinine 0.81 Est Cr Clr Drug Dosing 43.8 Est GFR ( Amer) 80.1 Est GFR (Non-Af Amer) 69.1 BUN/Creatinine Ratio 23.8 H Glucose 90 Calcium 7.8 L PG Care Time/CCT Total # of Minutes Spent Total Time Spent with Patient: Total time spent is greater than 50% in coordination of care (as documented) at patient's floor/unit and/or counseling patient: (1) CAD (coronary artery disease) Coronary Disease-Associated Artery/Lesion type: unspecified vessel or lesion type [place] vs. transplanted heart: [place] heart Associated angina: without angina Qualified Code(s): I25.10 - Atherosclerotic heart disease of [place] coronary artery without angina pectoris
[2019-06-18] MEDS: DIGOXIN 0.125 MG TAB PO SCH (16:06)
[2019-06-18] MEDS: WARFARIN SOD 2 MG TAB PO SCH (16:06)
[2019-06-18] MEDS: ROPINIROLE HCL 1 MG TABLET PO SCH (20:16)
[2019-06-19 07:15] LABS: Hematocrit (blood only) 34.1 % (37-47); Hemoglobin 10.4 g/dL (12.0-16.0); Mean Corpuscular Hgb Conc 30.5 g/dL (32-36); Mean Corpuscular Volume 91.7 fL (80-100); Mean Platelet Volume 10.3 fL (7.4-10.4); Platelet Count 284 K/uL (130-400); RDW Coefficient of Variation 24.2 % (11.5-14.5); RDW Standard Deviation 79.6 fL (36.4-46.3); Red Blood Count 3.72 M/uL (4.2-5.4); White Blood Count 7.12 K/uL (4.8-10.8)
--- NOTE | 2019-06-19 07:23 | XRay Report ---
XR chest 1V portable CLINICAL HISTORY: 79 years-old Female presenting with effusion. TECHNIQUE: Portable upright AP view of the chest was obtained. COMPARISON: 06/17/2019. FINDINGS: Median sternotomy wires and prosthetic mitral valve. Atherosclerosis of the aortic arch. Cardiac [place] moderately enlarged. Coronary artery stents may also be in place. Persistent layering left ple ural effusion, which is small to moderate in size. Poor aeration of the left lung base unchanged from prior. Bandlike opacity in the left midlung new from prior. Trace right pleural effusion may also be present. No pneumothorax. Degenerative changes of the thoracic spine. Advanced degenerative changes of the left glenohumeral joint. Right shoulder arthroplasty. Upper abdomen normal. IMPRESSION: 1. Bilateral pleural effusions left greater than right. 2. Unchanged aeration of the left lung base. 3. Right midlung atelectasis. 4. Cardiomegaly. No advanced congestive change or chris pulmonary edema. Electronically signed by: Leonel Min M.D. 06/19/2019 7:22 AM
[2019-06-19 07:25] LABS: INR 3.1 (0.9-1.1); Prothrombin Time 29.1 Seconds (9.0-12.0)
[2019-06-19 07:43] LABS: BUN Creatinine Ratio 24.4 (10-20); Calcium 8.3 mg/dl (8.5-10.1); Creatinine Clr Calc Pharmacy 38.3 ml/min; Est GFR (African American) 71.4; Est GFR (Non-African American) 61.6; Potassium 3.5 mmol/L (3.5-5.1)
[2019-06-19] MEDS: FAMOTIDINE 20 MG TAB PO SCH (07:49)
[2019-06-19] MEDS: ASPIRIN 81 MG ECTAB PO SCH (07:49)
[2019-06-19] MEDS: METOPROLOL SUCC 25MG EXT REL TAB PO SCH (07:49)
[2019-06-19] MEDS: FLUTICASONE PROPIONATE NA SPR 16 GM BTL SCH (07:50)
[2019-06-19] MEDS: FUROSEMIDE 20 MG in SYRINGE 0 ML IV SCH (07:50)
[2019-06-19] MEDS: CHOLECALCIFEROL 1,000 UNITS TAB PO SCH (07:50)
[2019-06-19] MEDS ORDERED: POTASSIUM CHLORIDE 20 MEQ TABCR PO STA (12:03)
--- NOTE | 2019-06-19 12:03 | Hospitalist Progress Note ---
Date of Service June 19, 2019 Assessment & Plan (1) Atrial fibrillation with RVR: pt s/p colectomy [facility] secondary to c. diff colitis EKG on admission afib with rvr- likely secondary to volume overload, acute chf, adrenal insufficiency Patient switched to Metoprolol prior to re-admission--> will continue metoprolol 75mg QAM Cardiology consult- patient initiated on dig, continue metoprolol will get dig level in the morning (2) Hypotension: With orthostasis - SBP in the 70s with standing. Not symptomatic Will hold on further diuresis at this point Patient does have some episodes of mild tachycardia so will avoid adjusting metoprolol at this point and see if her pressures improve with holding diuretic (3) Acute diastolic heart failure: CXR initially with increasing left pleural effusion, small right effusion -Per discussion with pulmonology and thoracic surgery for possible thoracentesis- due to patient sat 95% on RA, will hold off intervention at this time. Repeat CXR 06/17 with continued pulmonary vascular congestion and interval improvement in a small left pleural effusion with left basilar airspace opacity which may reflect consolidation or atelectasis. Repeat 06/19 showed continued effusion but without pulmonary vascular congestion Repeat ECHO consistent with low output and significant diastolic dysfunction Patient up about 20 pounds from discharge 05/27/19 at admission Continue IV furosemide 20 mg bid Strict I&O, Daily Weights- standing scale - diuresing well - will hold off on further diuresis due to orthostasis Elevated liver enzymes, likely secondary to hepatic congestion- Bili trending down, alk phos remains elevated-> will continue to monitor (4) Hypokalemia: replaced (5) Bilateral pleural effusion: As above- hold lasix for orthostasis, continue daily weights, I&Os no indication for thoracentesis as above (6) Rheumatoid arthritis: Patient currently not taking methotrexate Immunosuppressed with daily 5mg prednisone- Stress dosed, now discontinued (7) Hypoalbuminemia: Albumin on admission 2.0. Patient was 3.0 on 05/26 prior to colectomy Continue Boost, limousine and hearse upholsterer consult (8) CAD (coronary artery disease): Hx CABG, Mitral Valve Repair, as above Continue home medications Plavix discontinued per Cardiology (9) Multiple lung nodules on CT: Per history Has had biopsy in past, benign (10) History of mitral valve repair: CABG and valve repair [facility] 7 years ago Continue home medications (11) Ileostomy, has currently: As above Ileostomy S/P colectomy [facility] last week Record ostomy output (12) C. difficile colitis: history of earlier in the month (13) Anxiety: continue Lexapro 10mg started here Patient with adverse effects from benzos (14) DVT prophylaxis: Patient on coumadin INR therapeutic - 3.1 this morning- Continue coumadin Initially concerned for UTI - UA+ for nitrite, 2+ leuk esterase--> UC grew only zehra -abx discontinued - patient received 4 days total treatment Dispo: patient from [facility]- PT/OT ordered- will keep patient today for orthostasis/hypotension Subjective Ms. Cedillo is a bit tachycardic with hypotension today though she is not symptomatic. Orthostatics today showed her to have significant drop in her blood pressure with standing. She continues to feel very tired and weak. No cough, some dyspnea on exertion. Review of Systems Review of Systems: All systems reviewed & are unremarkable except as noted in HPI & below Physical Exam Physical Exam: General: no distress Eyes: normal inspection, PERLL Respiratory: chest non tender, clear to auscultation, normal breath sounds, no respiratory distress, no accessory muscle use Cardiac: regular rate and rhythm, no rub or gallop, no murmur, no edema, no jvd GI/: active bowel sounds, no abd pain or tenderness, soft, non distended Extremities: normal range of motion, normal strength, non tender Neuro/Psych: alert and oriented x 3, normal mood and affect Skin: normal color, dry Results & Data Vital Signs (Past 12 Hours) Vital Signs Temp Pulse Pulse Resp BP Pulse Ox 06/19/19 10:43 36.4 C L 93 06/19/19 08:01 36.8 C 106 H 21 94/64 L 90 06/19/19 03:11 36.4 C L 85 16 124/68 95 06/19/19 00:12 77 PG Care Time/CCT Total # of Minutes Spent Total Time Spent with Patient: Total time spent is greater than 50% in coordination of care (as documented) at patient's floor/unit and/or counseling patient: (1) CAD (coronary artery disease) Coronary Disease-Associated Artery/Lesion type: unspecified vessel or lesion type [place] vs. transplanted heart: [place] heart Associated angina: without angina Qualified Code(s): I25.10 - Atherosclerotic heart disease of [place] coronary artery without angina pectoris
--- NOTE | 2019-06-19 12:29 | Cardiology Progress Note ---
Date of Service June 19, 2019 Assessment & Plan (1) Acute diastolic heart failure: Clinically she appears to be doing well. Her diuretic could certainly be switched to an oral formulation which would possibly facilitate her transfer off the telemetry stauffer. (2) Atrial fibrillation with RVR: Overall heart rates appear well controlled on her current dose of metoprolol and digoxin. I think her rates are well controlled she does not require any additional telemetry monitoring. (3) History of mitral valve repair: She does have an element of mitral regurgitation based on her recent echocardiogram. (4) CAD (coronary artery disease): History of both percutaneous and surgical revascularization. No current symptoms to suggest ischemia or coronary insufficiency. Continue on aspirin and warfarin Subjective This morning patient claims to being tired. She has been up in a chair for approximately 1 hour but was requesting to go back to bed to arrest. She also has a complaints regarding swelling in her lower extremities. No symptoms of breathing difficulty. No symptoms of chest pain. No symptoms of palpitations. Review of Systems Review of Systems: Per HPI Physical Exam Physical Exam: She is alert and oriented x3. Mood affect appear normal. She answered all questions appropriately. HEENT: Sclerae are anicteric. Pupils are equal and reactive to light and accommodation. Extraocular movements were intact. Neuro: Cranial nerves intact Lungs: Lungs are clear to auscultation bilaterally. There are no rales wheezes or rhonchi. She has normal respiratory effort without use of accessory muscles. There is normal pulmonary excursion. Cardiac: The rhythm was regular. S1 and S2 were normal. There are no murmurs on examination. The PMI was not markedly displaced on palpation. Abdomen: The abdomen was soft and nontender. Extremities: Patient has bilateral radial pulses that are equal in intensity. There is no evidence cyanosis or clubbing. Mild lower extremity edema. Skin: There are no rashes noted on examination today. Results & Data Vital Signs (Past 12 Hours) Vital Signs Temp Pulse Resp BP Pulse Ox 06/19/19 10:43 36.4 C L 93 06/19/19 08:01 36.8 C 106 H 21 94/64 L 90 06/19/19 03:11 36.4 C L 85 16 124/68 95 Laboratory Results Abnormal Lab Results 06/19/19 06/19/19 06/19/19 07:01 07:01 07:01 WBC 7.12 RBC 3.72 L Hgb 10.4 L Hct 34.1 L MCV 91.7 MCH 28.0 MCHC 30.5 L RDW Std Deviation 79.6 H RDW Coeff of Nina 24.2 H Plt Count 284 MPV 10.3 PT 29.1 H INR 3.1 H Sodium 145 Potassium 3.5 Chloride 112 H Carbon Dioxide 27 Anion Gap 6.0 BUN 22 H Creatinine 0.89 Est Cr Clr Drug Dosing 38.3 Est GFR ( Amer) 71.4 Est GFR (Non-Af Amer) 61.6 BUN/Creatinine Ratio 24.4 H Glucose 89 Calcium 8.3 L PG Care Time/CCT Total # of Minutes Spent Total Time Spent with Patient: Total time spent is greater than 50% in coordination of care (as documented) at patient's floor/unit and/or counseling patient: (1) CAD (coronary artery disease) Coronary Disease-Associated Artery/Lesion type: unspecified vessel or lesion type [place] vs. transplanted heart: [place] heart Associated angina: without angina Qualified Code(s): I25.10 - Atherosclerotic heart disease of [place] coronary artery without angina pectoris
[2019-06-19] MEDS ORDERED: Nursing to Pharmacy Communication ONE (12:30)
[2019-06-19] MEDS ORDERED: POTASSIUM CHLORIDE PWD 20 MEQ PACK PO ONE (12:45)
[2019-06-19] MEDS: WARFARIN SOD 2 MG TAB PO SCH (17:10)
[2019-06-19] MEDS: DIGOXIN 0.125 MG TAB PO SCH (17:10)
[2019-06-19] MEDS: ROPINIROLE HCL 1 MG TABLET PO SCH (20:12)
[2019-06-20 07:29] LABS: Hematocrit (blood only) 34.7 % (37-47); Hemoglobin 10.6 g/dL (12.0-16.0); Mean Corpuscular Hemoglobin 28.3 pg (25-34); Mean Corpuscular Hgb Conc 30.5 g/dL (32-36); Mean Corpuscular Volume 92.5 fL (80-100); Mean Platelet Volume 9.9 fL (7.4-10.4); Platelet Count 289 K/uL (130-400); RDW Coefficient of Variation 24.6 % (11.5-14.5); RDW Standard Deviation 80.6 fL (36.4-46.3); Red Blood Count 3.75 M/uL (4.2-5.4); White Blood Count 7.04 K/uL (4.8-10.8)
[2019-06-20] MEDS: FLUTICASONE PROPIONATE NA SPR 16 GM BTL SCH (07:35)
[2019-06-20 07:50] LABS: INR 3.5 (0.9-1.1); Prothrombin Time 33.1 Seconds (9.0-12.0)
[2019-06-20 08:09] LABS: BUN Creatinine Ratio 23.1 (10-20); Calcium 8.2 mg/dl (8.5-10.1); Creatinine Clr Calc Pharmacy 40.6 ml/min; Est GFR (African American) 77.7; Est GFR (Non-African American) 67.1; Potassium 3.4 mmol/L (3.5-5.1)
[2019-06-20] MEDS: ASPIRIN 81 MG ECTAB PO SCH (08:17)
[2019-06-20] MEDS: CHOLECALCIFEROL 1,000 UNITS TAB PO SCH (08:18)
[2019-06-20] MEDS: METOPROLOL SUCC 25MG EXT REL TAB PO SCH (08:18)
[2019-06-20] MEDS: FAMOTIDINE 20 MG TAB PO SCH (08:19)
[2019-06-20] MEDS ORDERED: FUROSEMIDE 40 MG TAB PO SCH (09:00)
[2019-06-20] MEDS ORDERED: POTASSIUM CHLORIDE 20 MEQ TABCR PO STA (10:36)
--- NOTE | 2019-06-20 12:14 | Discharge Summary ---
Date of Service June 20, 2019 Admission HPI Per Admitting Provider Patient is a 79yo female with significant past medical history for CAD (S/P CABG 2011, Mitral Valve Repair at [facility]), Pulmonary HTN, Atrial Fibrillation, Diastolic CHF, Rheumatoid Arthritis, Breast Ca (Right Mastectomy 1987- received chemo only), recent discharge from [facility] on 06/13 to [facility] with ileostomy s/p c.diff colitis and subsequent bowel resection. Patient was seen in the emergency room for further evaluation of shortness of breath. Patient and family state the patient was discharged from [facility] on May 27, and continued to have a cough and felt weak, so she went to [facility] where she was diagnosed with c.diff colitis. The patient became septic and was subsequently life flighted to [facility] where the patient underwent a subtotal colectomy with resulting ileostomy. She was discharge last evening to [facility]. The patient states she believe she may have had a panic attack when she thought two nursing aides at [facility] could potentially drop her when she was getting up. She continues to have shortness of breath, not worsened by inspiration, however she has had some immobilization over the past weeks. She is more comfortable when she sits upright. Patient chronically immunosuppresed with daily prednisone 5mg for her RA, however she has not been taking her methotrexate for several months as per her [employer]. She does not believe she was given stress dose steroids during her admission and dose have increased swelling in her legs. Baseline weight 57-58kg. Currently 67kg. EKG atrial fibrillation with RVR. Cardizem x1 in ED. Negative flu. UA positive for protein, 3+ blood, +nitrite, 2+ leuk esterase. CXR with increasing left pleural effusion, persistent right effusion. Current INR, on coumadin, 2.5. Principal Diagnosis CHF exacerbation Discharge Exam Constitutional WD/WN, vitals as above Respiratory normal respiratory effort, lungs clear to auscultation Cardiovascular RRR, no murmur, no edema Gastrointestinal (Abdomen) Inspection/Auscultation: abdomen normal to inspection, normal bowel sounds and + abdominal edema; abdomen not distended Percussion/Palpation: abdomen soft; abdomen nontender Musculoskeletal no cyanosis or clubbing, extremities motor strength 5/5 Skin no rashes, warm and dry Neurologic moves all extremities and awake Psychiatric A+Ox3, euthymic affect Discharge Data Allergies Allergy/AdvReac Type Severity Reaction Status Date / Time lorazepam AdvReac Intermediate DELIRIUM Verified 06/14/19 16:56 promethazine AdvReac Intermediate DELIRIUM Verified 06/14/19 16:56 Consultations 06/14/19 13:56 ED Decision to Admit Stat 06/14/19 18:42 Consult Cardiology Stat Consult Case Management - Discharge Planning Routine Hospital Course (1) Atrial fibrillation with RVR: pt s/p colectomy [facility] secondary to c. diff colitis EKG on admission afib with rvr- likely secondary to volume overload, acute chf, adrenal insufficiency Patient switched to Metoprolol prior to re-admission--> will continue metoprolol 75mg QAM Cardiology consult- patient initiated on dig, continue metoprolol - discussed with cardiology - heart rates acceptable Dig level 1.4 06/20 (2) Hypotension: With orthostasis 06/19 - SBP in the 70s with standing. Not symptomatic - improved today, blood pressure decreased by 10 points with sitting and patient felt some mild transient dizziness. Continue MUKESH hose and changing positions slowly Held lasix 06/19 and 06/20 - will have her resume her home lasix dosing on 06/21 (3) Acute diastolic heart failure: CXR initially with increasing left pleural effusion, small right effusion -Per discussion with pulmonology and thoracic surgery for possible thoracentesis- due to patient sat 95% on RA, will hold off intervention at this time. Repeat CXR 06/17 with continued pulmonary vascular congestion and interval improvement in a small left pleural effusion with left basilar airspace opacity which may reflect consolidation or atelectasis. Repeat 06/19 showed continued effusion but without pulmonary vascular congestion Repeat ECHO consistent with low output and significant diastolic dysfunction Patient up about 20 pounds from discharge 05/27/19 at admission Given IV furosemide 20 mg bid until 06/19 when she developed hypotension Strict I&O, Daily Weights- standing scale - diuresing well - will hold off on further diuresis due to orthostasis Elevated liver enzymes, likely secondary to hepatic congestion- Bili trending down, alk phos remains elevated-> follow up outpatient (4) Hypokalemia: replaced (5) Bilateral pleural effusion: As above- hold lasix for orthostasis, continue daily weights, I&Os no indication for thoracentesis as above Resume home furosemide dosing tomorrow (6) Rheumatoid arthritis: Patient currently not taking methotrexate Immunosuppressed with daily 5mg prednisone- Stress dosed, now discontinued (7) Hypoalbuminemia: Albumin on admission 2.0. Patient was 3.0 on 05/26 prior to colectomy Continue Boost, gi asst consult (8) CAD (coronary artery disease): Hx CABG, Mitral Valve Repair, as above Continue home medications Plavix discontinued per Cardiology (9) Multiple lung nodules on CT: Per history Has had biopsy in past, benign (10) History of mitral valve repair: CABG and valve repair [facility] 7 years ago Continue home medications (11) Ileostomy, has currently: At [facility], discharged 06/14 Ileostomy S/P colectomy [facility] last week (12) C. difficile colitis: history of earlier in the month with subsequent colectomy and completion of vancomycin enema regimen (13) Anxiety: continue Lexapro 10mg started here Patient with adverse effects from benzos (14) DVT prophylaxis: Patient on coumadin INR therapeutic - 3.1 this morning- Continue coumadin Initially concerned for UTI - UA+ for nitrite, 2+ leuk esterase--> UC grew only zehra -abx discontinued - patient received 4 days total treatment Dispo: patient from [facility] Total Time Total Time Spent Total Time Spent (In Minutes): greater than 30 minutes Discharge Plan Discharge Items Patient Disposition: Transfer Inpatient Rehab Fac Reason For Visit: SHORTNESS OF BREATH Discharge Diagnosis: CHF exacerbation Activity: Resume your previous activity Activity Comment: gradually as dictated by therapy instruction Non-emergency contact: Primary Care Provider Call non-emergency contact if: you have any medication questions Follow-up/Referrals: Damion Carballo [Primary Care Provider] - Diet: Heart Healthy and Low Sodium (2gm) Addtl Attending Provider Instructions: Ms. Cedillo will need to follow up with cardiology in about a week or two. She should have a follow up chest xray to follow her pleural effusions left > right. During her stay the effusions were discussed with pulmonology and thoracic surgery and it was decided that thoracentesis was unnecessary given her improved respiratory status. May want to consider following up with thoracic surgery. Last digoxin level checked 06/20 was 1.4 INR 10/3 was 3.5 - warfarin will need to be held tonight and INR checked again tomorrow Furosemide was held yesterday and today for hypotension/orthostasis which is improved today. She should continue to change positions from laying to sitting slowly and ideally with supervision and wear MUKESH hose Ms. Cedillo will need to follow up with [facility] surgery concerning staple removal of her incision. She has a previously made appointment for June 26 with surgery at [facility] per her discharge instructions. Pending Studies at Discharge: No Stand-Alone Forms: My [facility] Skilled Items Patient informed of condition?: Yes DNR: No Discharge Level of Care: Acute rehab Communicable Disease: No (history of C. Diff infection early May - treatment completed ) Discharge Prognosis: Improving Lines: None Urinary Catheter: No Medications and DC Order Prescriptions: New escitalopram oxalate 10 mg Tablet 10 mg PO QAM Qty: 30 RF: 0 metoprolol succinate 25 mg Tablet Extended Release 24 Hr 75 mg PO QAM Qty: 30 RF: 0 digoxin 125 mcg (0.125 mg) Tablet 0.125 mg PO DAILY@1600 Qty: 30 RF: 0 Continued prednisone 5 mg Tablet 5 mg PO QAM RF: 0 aspirin 81 mg Tablet,Delayed Release (Dr/Ec) 81 mg PO QAM RF: 0 simvastatin 40 mg Tablet 40 mg PO PM RF: 0 zoledronic [id number] [Reclast] 5 mg/100 mL Piggyback 5 mg IV YEARLY RF: 0 carvedilol 6.25 mg Tablet 6.25 mg PO BID RF: 0 ropinirole 1 mg Tablet 0.5 - 1 mg PO HS RF: 0 methotrexate sodium 2.5 mg Tablet 12.5 mg PO WK RF: 0 albuterol sulfate 90 mcg/actuation HFA aerosol inhaler 2 puff inhalation DIRECTED PRN (Reason: Shortness Of Breath Or Wheezing) RF: 0 cholecalciferol (vitamin D3) [Vitamin D3] 1,000 unit Capsule 2,000 unit PO DAILY RF: 0 mometasone 50 mcg/actuation spray,non-aerosol 1 spray intranasal DAILY RF: 0 furosemide 20 mg tablet 20 mg PO QAM RF: 0 acetaminophen 325 mg Tablet 325 mg PO Q4H PRN (Reason: Pain) RF: 0 atorvastatin 20 mg Tablet 20 mg PO HS RF: 0 polyethylene glycol 3350 [Miralax] 17 gram Powder In Packet 17 g PO DAILY PRN (Reason: Constipation) RF: 0 bisacodyl 10 mg Suppository 10 mg IA DAILY PRN (Reason: Constipation) RF: 0 Fleet Enema 19-7 gram/118 mL Enema 133 ml IA DAILY PRN (Reason: Constipation) RF: 0 docusate sodium 100 mg Capsule 100 mg PO BID RF: 0 diclofenac sodium [Voltaren] 1 % Gel 2 g TOPICAL QID PRN (Reason: Pain) RF: 0 famotidine 20 mg tablet 20 mg PO DAILY RF: 0 warfarin 2 mg tablet 2 mg PO UD RF: 0 Discontinued metoprolol succinate 50 mg Tablet Extended Release 24 Hr 75 mg PO QAM RF: 0 clopidogrel 75 mg Tablet 75 mg PO QAM RF: 0 tramadol 50 mg Tablet 50 mg PO Q6H PRN (Reason: Pain) RF: 0 Discharge Orders: Discharge Order (Routine); Ordered 06/20/19 Ordered By: Megha Cordova Admission Data Admit Date/Time: 06/15/19 15:58 Attending Provider: Nathan Rodriguez Admit Provider: Cydney Pressley Primary Care Provider: Damion Carballo Other Providers: Marin Gallegos ; [facility] ; Nathan Rodriguez
[2019-06-20 13:02] LABS: Albumin Level 2.4 gm/dl (3.4-5.0); Bilirubin Direct 0.4 mg/dl (0-0.2)
== END 2019-06-20 15:17 | DRG 291 ==
LOC: ED 11:13 → 2S 11:13 → SUATTDRO 06-15 15:58